=== PATIENT | female | born 1955 | race African-American/Black ===

== ENCOUNTER 2016-10-03 04:02 | Emergency (ER) | payer MEDICAID ==
[2016-10-03] MEDS ORDERED: LORAZEPAM INJ 2 MG/1 ML VIAL IV ONE ×2 (04:39→05:30)
[2016-10-03 05:04] LABS: ABSOLUTE EOSINOPHILS # (AUTO) 0.2 10^3/uL (0.0-0.6); ABSOLUTE LYMPHOCYTES (AUTO) 1.5 10^3/uL (0.5-4.7); ABSOLUTE MONOCYTES (AUTO) 0.4 10^3/uL (0.1-1.4); ABSOLUTE NEUT (AUTO) 2.7 10^3/uL (1.7-8.2); EOSINOPHILS % (AUTO) 3.8 % (0-6); HEMATOCRIT 40.2 % (36.0-47.0); HEMOGLOBIN 13.2 g/dL (12.0-15.5); HGB HCT DIFFERENCE -0.6; MEAN CORPUSCULAR HEMOGLOBIN 26.5 pg (27.0-33.4); MEAN CORPUSCULAR HGB CONC 32.9 g/dL (32.0-36.0); MEAN CORPUSCULAR VOLUME 81 fl (80-97); MONOCYTES % (AUTO) 8.8 % (3-13); RED BLOOD COUNT 4.99 10^6/uL (3.72-5.28); RED CELL DISTRIBUTION WIDTH 14.5 % (11.5-14.0); SEGMENTED NEUTROPHILS % (AUTO) 55.4 % (42-78); WHITE BLOOD COUNT 4.8 10^3/uL (4.0-10.5)
[2016-10-03] MEDS ORDERED: LEVETIRACETAM INJ/PF 500 MG/5 ML SDV IV ONE (05:06)
[2016-10-03 05:09] LABS: ALANINE AMINOTRANSFERASE 26 U/L (9-52); ALBUMIN 4.6 g/dL (3.5-5.0); ALKALINE PHOSPHATASE 82 U/L (38-126); ANION GAP 17 (5-19); ASPARTATE AMINO TRANSFERASE 24 U/L (14-36); BILIRUBIN,TOTAL 0.6 mg/dL (0.2-1.3); BLOOD UREA NITROGEN 25 mg/dL (7-20); CALCIUM 10.5 mg/dL (8.4-10.2); CARBON DIOXIDE 22 mmol/L (22-30); CHLORIDE 104 mmol/L (98-107); GLUCOSE 147 mg/dL (75-110); MAGNESIUM 2.1 mg/dL (1.6-2.3); POTASSIUM 3.9 mmol/L (3.6-5.0); SODIUM 142.7 mmol/L (137-145)
[2016-10-03 05:31] LABS: ALCOHOL < 10 mg/dL (NONE DETECTED)
--- NOTE | 2016-10-03 05:35 | ER Document Report ---
ED General - General Chief Complaint: Probable Seizure Stated Complaint: seizure activity Mode of Arrival: Medic Information source: Patient, Parent - HPI Notes: Patient presents by EMS with report of an observed seizure activity according to the family. The patient has a history of seizures which been controlled, but recently the patient stopped taking her Keppra as she was told by a nurse that it could cause psychosis. Patient does have a history of bipolar disease with schizophrenia according to the records. Family states this morning the patient was up walking around and then they heard her fall over and saw her with irregular breathing and then she started with snoring respirations and was unconscious. The patient slowly came around for EMS and arrived somewhat belligerent. Blood sugar was normal by report. On my questioning, the patient denies any pain anywhere. She reports no headache, neck pain, chest pain, shortness of breath. The family states prior to the event the patient was her normal self where she is argumentative at times and requires redirection by family members. - Related Data Allergies/Adverse Reactions: fluphenazine [Fluphenazine] Allergy (Severe, Verified 04/13/14 02:25) haloperidol [From Haldol] Allergy (Unknown, Verified 04/13/14 02:25) haloperidol lactate [From Haldol] Allergy (Unknown, Verified 04/13/14 02:25) lisinopril [Lisinopril] Allergy (Unknown, Verified 04/13/14 02:25) Past Medical History - Social History Smoking Status: Never Smoker Frequency of alcohol use: None Drug Abuse: None Lives with: Family Family History: Reviewed & Not Pertinent - Past Medical History Cardiac Medical History: Reports: Hx Hypercholesterolemia, Hx Hypertension Denies: Hx Heart Murmur Pulmonary Medical History: Reports: Hx Respiratory Failure Denies: Hx Tuberculosis Neurological Medical History: Reports: Hx Cerebrovascular Accident, Hx Seizures Psychiatric Medical History: Reports: Hx Depression, Hx Schizophrenia Past Surgical History: Reports: Hx Tubal Ligation - Immunizations Hx Diphtheria, Pertussis, Tetanus Vaccination: Yes Review of Systems - Review of Systems Notes: REVIEW OF SYSTEMS: CONSTITUTIONAL : Denies fever, chills, or sweats. Denies recent illness. EENT: Denies eye, ear, throat, or mouth pain or symptoms. Denies nasal or sinus congestion or discharge. Denies throat, tongue, or mouth swelling or difficulty swallowing. CARDIOVASCULAR: Denies chest pain. Denies palpitations or racing or irregular heart beat. Denies ankle edema. RESPIRATORY: Denies cough, cold, or chest congestion. Denies shortness of breath, difficulty breathing, or wheezing. GASTROINTESTINAL: Denies abdominal pain or distention. Denies nausea, vomiting , or diarrhea. Denies blood in vomitus, stools, or per rectum. Denies black, tarry stools. Denies constipation. GENITOURINARY: Denies difficulty urinating, painful urination, burning, frequency, blood in urine, or discharge. FEMALE GENITOURINARY: Denies vaginal bleeding, heavy or abnormal periods, irregular periods. Denies vaginal discharge or odor. MUSCULOSKELETAL: Denies back or neck pain or stiffness. Denies joint pain or swelling. SKIN: Denies rash, lesions or sores. HEMATOLOGIC : Denies easy bruising or bleeding. LYMPHATIC: Denies swollen, enlarged glands. NEUROLOGICAL: Denies dizziness or lightheadedness. Denies headache. Denies weakness or paralysis or loss of use of either side. Denies problems with gait or speech. Denies sensory loss, numbness, or tingling. PSYCHIATRIC: Denies anxiety or stress. Denies depression, suicidal ideation, or homicidal ideation. ALL OTHER SYSTEMS REVIEWED AND NEGATIVE. Dictation was performed using [employer] voice recognition software Physical Exam - Notes Notes: PHYSICAL EXAMINATION: GENERAL: Well-appearing, well-nourished and in no acute distress. HEAD: Atraumatic, normocephalic. EYES: Pupils equal round and reactive to light, extraocular movements intact, conjunctiva are normal. ENT: Nares patent, oropharynx without exudates. Moist mucous membranes. There is some bruising to the left side of the tongue consistent with the patient biting, but there are no significant lacerations. No dental trauma noted. NECK: Normal range of motion, supple without lymphadenopathy LUNGS: Breath sounds clear to auscultation bilaterally and equal. No wheezes rales or rhonchi. HEART: Regular rate and rhythm without murmurs ABDOMEN: Soft, nontender, nondistended abdomen. No guarding, no rebound. No masses appreciated. Female : deferred Musculoskeletal: Normal range of motion, no pitting or edema. No cyanosis. NEUROLOGICAL: Cranial nerves grossly intact. Normal speech. Normal sensory, motor exams. Patient is alert and oriented 3. Normal reflexes. PSYCH: Somewhat pressured speech and occasionally belligerent, but patient's family states this is her normal. Patient has no suicidal or homicidal ideation or obvious hallucinations. SKIN: Warm, Dry, normal turgor, no rashes or lesions noted. Course - Re-evaluation Re-evalutation: 10/03/16 05:35 Patient was given Ativan 1 mg IV, then was given a repeat dose of Ativan 1 mg IV. I discussed at length with the patient and her family the need to consistently take her Keppra on regular interval. I reaffirmed to the patient and likewise wrote out for the patient that the Keppra was not going to cause any psychosis or other psychotic symptoms. We will rule out acute CVA, electrolyte imbalance, infectious etiology or other abnormality or intracranial injury related to the fall. Currently patient is otherwise nontender on exam without evidence for any other trauma. However, the patient currently appears stable and if lab work is otherwise negative she will go home and resume her Keppra. 10/03/16 05:37 - Laboratory Result Diagrams: 10/03/16 04:13 10/03/16 04:13 Laboratory results interpreted by me: 10/03/16 10/03/16 10/03/16 04:13 04:13 04:20 MCH 26.5 L RDW 14.5 H BUN 25 H Creatinine 1.40 H Est GFR ( Amer) 46 L Est GFR (Non-Af Amer) 38 L Glucose 147 H POC Glucose 129 H Calcium 10.5 H Discharge - Discharge Clinical Impression: Seizure, Medical non-compliance Accidental fall Qualifiers: Encounter type: initial encounter Qualified Code(s): W19.XXXA - Unspecified fall, initial encounter Condition: Stable Disposition: HOME, SELF-CARE Instructions: Seizure, Known Epileptic ([facility]) Additional Instructions: Seizure, Known Epileptic You have had a seizure. Seizures may "break through" in an epileptic due to stress of infection or injury, a change in blood chemistry, or drug and alcohol use. Another common cause is failure to take medication as prescribed. Your doctor has evaluated your situation for the likely cause of this seizure. It is important that you follow his advice concerning any medication changes and follow-up care. Further testing of anti-seizure medication levels in your blood may be necessary. If you have a tanker driver's license, it's important that you DO NOT DRIVE until given permission by your physician. This seizure must be reported to the tanker driver 's license bureau. Call the doctor or return if seizures recur, or if new or unusual symptoms arise -- such as severe headache, confusion, excessive sleepiness, local weakness or numbness, neck stiffness, or fever. Take your Keppra regularly twice per day. Prescriptions: Levetiracetam [Keppra 500 mg Tablet] 500 mg PO Q12 #60 tablet
[2016-10-03 06:32] VITALS: BP 119/67
== END 2016-10-03 06:41 | disposition home or self-care (01) ==
LOC: ER 04:02
DX: G40.909 Epilepsy, unspecified, not intractable, without status epilepticus (principal); Z91.14 Patient's other noncompliance with medication regimen; W19.XXXA Unspecified fall, initial encounter; E78.00 Pure hypercholesterolemia, unspecified; I10 Essential (primary) hypertension; Z86.73 Personal history of transient ischemic attack (TIA), and cerebral infarction without residual deficits; Z98.51 Tubal ligation status
CPT/HCPCS: 96376; 99284; 96374; 96375; 36415; 82962; 80307; 83735; 85025; 80053; 70450; J2060; J1953

== ENCOUNTER → 2017-03-13 | Outpatient (CLI) | payer MEDICAID ==
--- NOTE | 2017-03-14 09:28 | WOMENS IMAGING REPORT ---
EXAM DESCRIPTION: BILAT SCREENING MAMMO W/CAD COMPLETED DATE/TIME: 03/13/2017 2:52 pm REASON FOR STUDY: ROUTINE SCREENING; Z12.31 Z12.31 ENCNTR SCREEN MAMMOGRAM FOR MALIGNANT NEOPLASM O F MERLYN COMPARISON: 05/18/2014, 07/16/2011 TECHNIQUE: Standard craniocaudal and mediolateral oblique views of each breast recorded using digita l acquisition. LIMITATIONS: None. FINDINGS: No masses, calcifications or architectural distortion. No areas of suspicion. Read with the assistance of CAD. .[facility] R2 Cenova Version 1.3 .[facility] - R2 Cenova Version 1.3 .[facility] - R2 Cenova Version 2.4 .[facility] - R2 Cenova Version 2.4 .[facility] - R2 Sharepoint Application Architect Version 9.2 IMPRESSION: NORMAL MAMMOGRAM. BIRADS 1. BREAST DENSITY: b. There are scattered areas of fibroglandular density. BIRAD: 1 NEGATIVE RECOMMENDATION: ROUTINE SCREENING Please continue yearly bilateral screening, consider bilateral screening tomosynthesis in February 2018 COMMENT: The patient has been notified of the results by letter per SA requirements. Additional no tification policies are in place for contacting patient with suspicious or incomplete findings. Quality ID #[id number]: The [employer] recommends an annual screening mammogram for women aged 40 years or over. This facility utilizes a reminder system to ensure that all patients receive reminder letters, and/or direct phone calls for appointments. This includes reminders for routine scr eening mammograms, diagnostic mammograms, or other Breast Imaging Interventions when appropriate. Th is patient will be placed in the appropriate reminder system. The [employer] (ACR) has developed recommendations for screening MRI of the breast s in certain patient populations, to be used in conjunction with mammography. Breast MRI surveillanc e may be appropriate for women with more than 20% lifetime risk of developing breast cancer as deter mined by genetic testing, significant family history of the disease, or history of mantle radiation f or Hodgkins Disease. ACR Practice Guidelines 2008. TECHNICAL DOCUMENTATION: FINDING NUMBER: (1) ASSESSMENT: (1) JOB ID: [id number] [employer]- All Rights Reserved
== END ==
LOC: WI 13:59
PROVIDERS: ATTEND Family Medicine
DX: Z12.31 Encounter for screening mammogram for malignant neoplasm of breast (principal)
CPT/HCPCS: 77067; G0202

== ENCOUNTER 2017-09-17 11:32 | Emergency (ER) | payer MEDICAID ==
[2017-09-17 11:41] VITALS: BP 140/89
--- NOTE | 2017-09-17 12:10 | RADIOLOGY REPORT (SQ) ---
EXAM DESCRIPTION: CT HEAD WITHOUT COMPLETED DATE/TIME: 09/17/2017 11:52 am REASON FOR STUDY: stroke alert COMPARISON: None. TECHNIQUE: Axial images acquired through the brain without intravenous contrast. Images reviewed wi th bone, brain and subdural windows. Images stored on PACS. All CT scanners at this facility use dose modulation, iterative reconstruction, and/or weight based d osing when appropriate to reduce radiation dose to as low as reasonably achievable (ALARA). [facility]: Dose Right [facility]: CareDose [facility]: Dose Right [facility]: Teradose 4D [facility]: Smart Technologies RADIATION DOSE: mGy. LIMITATIONS: None. FINDINGS: VENTRICLES: Prominent. CEREBRUM: No masses. No hemorrhage. No midline shift. Areas of low density in the white matter mos t likely due to chronic micro-vascular ischemic change. Old right occipital infarct is again identif ied. No evidence for acute infarction. CEREBELLUM: No masses. No hemorrhage. No evidence for acute infarction. EXTRAAXIAL SPACES: Mild age-related involutional change. No fluid collections. No masses. ORBITS AND GLOBE: No intra- or extraconal masses. Normal contour of globe without masses. CALVARIUM: No fracture. PARANASAL SINUSES: No fluid or mucosal thickening. SOFT TISSUES: No mass or hematoma. OTHER: No other significant finding. IMPRESSION: MILD CHRONIC CHANGES OF ATROPHY AND MICROVASCULAR ISCHEMIA. Old right occipital infarct . NO ACUTE PROCESS. EVIDENCE OF ACUTE STROKE: NO. COMMENT: Pertinent positive or negative findings of the imaging study reported as a CRITICAL EXAM t o ER PROVIDER Dr. Caceres at11:57 on 09/17/2017. Category of Critical Exam: Stroke alert TECHNICAL DOCUMENTATION: JOB ID: [id number] Quality ID # [id number]: Final reports with documentation of one or more dose reduction techniques (e.g., Au tomated exposure control, adjustment of the mA and/or kV according to patient size, use of iterative reconstruction technique) 2010 [employer]- All Rights Reserved Reading location - IP/workstation name: [email or web address]
[2017-09-17 12:14] LABS: ABSOLUTE BASOPHILS # (AUTO) 0.1 10^3/uL (0.0-0.2); ABSOLUTE EOSINOPHILS # (AUTO) 0.2 10^3/uL (0.0-0.6); ABSOLUTE LYMPHOCYTES (AUTO) 1.5 10^3/uL (0.5-4.7); ABSOLUTE MONOCYTES (AUTO) 0.4 10^3/uL (0.1-1.4); ABSOLUTE NEUT (AUTO) 3.6 10^3/uL (1.7-8.2); BASOPHILS % (AUTO) 1.4 % (0-2); HEMATOCRIT 39.2 % (36.0-47.0); HEMOGLOBIN 13.1 g/dL (12.0-15.5); LYMPHOCYTES % (AUTO) 26.5 % (13-45); MEAN CORPUSCULAR HEMOGLOBIN 27.1 pg (27.0-33.4); MEAN CORPUSCULAR HGB CONC 33.3 g/dL (32.0-36.0); MEAN CORPUSCULAR VOLUME 81 fl (80-97); MONOCYTES % (AUTO) 6.2 % (3-13); PLATELET COUNT 246 10^3/uL (150-450); RED BLOOD COUNT 4.83 10^6/uL (3.72-5.28); RED CELL DISTRIBUTION WIDTH 14.7 % (11.5-14.0); SEGMENTED NEUTROPHILS % (AUTO) 61.9 % (42-78); TOTAL CELLS COUNTED % (AUTO) 100 %; WHITE BLOOD COUNT 5.8 10^3/uL (4.0-10.5)
[2017-09-17 12:20] LABS: INTERNATIONAL RATION (INR) 0.82; PROTHROMBIN TIME 11.9 SEC (11.4-15.4)
[2017-09-17 12:21] LABS: PARTIAL THROMBOPLASTIN TIME 36.5 SEC (23.5-35.8)
--- NOTE | 2017-09-17 12:45 | RADIOLOGY REPORT (SQ) ---
EXAM DESCRIPTION: CHEST SINGLE VIEW COMPLETED DATE/TIME: 09/17/2017 12:35 pm REASON FOR STUDY: stroke alert COMPARISON: Chest films 01/24/2012, 12/09/2011 EXAM PARAMETERS: NUMBER OF VIEWS: One view. TECHNIQUE: Single frontal radiographic view of the chest acquired. RADIATION DOSE: NA LIMITATIONS: None. FINDINGS: LUNGS AND PLEURA: No opacities, masses or pneumothorax. No pleural effusion. MEDIASTINUM AND HILAR STRUCTURES: No masses. Contour normal. HEART AND VASCULAR STRUCTURES: Stable cardiomegaly BONES: No acute findings. HARDWARE: None in the chest. OTHER: No other significant finding. IMPRESSION: Stable cardiomegaly. No acute infiltrates TECHNICAL DOCUMENTATION: JOB ID: [id number] [employer]- All Rights Reserved Reading location - IP/workstation name: [email or web address]
--- NOTE | 2017-09-17 12:49 | EKG REPORT ---
SEVERITY:- NORMAL ECG - SINUS RHYTHM : Confirmed by: Jaron Guerrero MD 17-Sep-2017 12:48:42
--- NOTE | 2017-09-17 14:02 | ER Document Report ---
ED General - General Chief Complaint: S/S of Possible Stroke Stated Complaint: WEAKNESS Time Seen by Provider: 09/17/17 11:52 Notes: 62-year-old female to the emergency department chief complaint of numbness on both sides of her body. Had a history of stroke 14 years ago. Did not want that to happen again. States that she felt some chills and felt cold as well. EMS was called. Initially she refused transport but then called EMS back after they had already done a visit and decided to come to the emergency department. Currently she denies any numbness or weakness on any side of her body and wants to go home. Patient denies any symptoms at this time TRAVEL OUTSIDE OF THE [place] IN LAST 30 DAYS: No - HPI Onset: Just prior to arrival Onset/Duration: Gone Severity: None Pain Level: 0 - Related Data Allergies/Adverse Reactions: fluphenazine [Fluphenazine] Allergy (Severe, Verified 09/17/17 11:35) haloperidol [From Haldol] Allergy (Unknown, Verified 09/17/17 11:35) haloperidol lactate [From Haldol] Allergy (Unknown, Verified 09/17/17 11:35) lisinopril [Lisinopril] Allergy (Unknown, Verified 09/17/17 11:35) Past Medical History - General Information source: Patient, Relative - Social History Smoking Status: Never Smoker Cigarette use (# per day): No Chew tobacco use (# tins/day): No Smoking Education Provided: No Frequency of alcohol use: None Drug Abuse: None Lives with: Family Family History: Reviewed & Not Pertinent Patient has suicidal ideation: No Patient has homicidal ideation: No - Past Medical History Cardiac Medical History: Reports: Hx Hypercholesterolemia, Hx Hypertension Denies: Hx Heart Murmur Pulmonary Medical History: Reports: Hx Respiratory Failure Denies: Hx Tuberculosis Neurological Medical History: Reports: Hx Cerebrovascular Accident, Hx Seizures Renal/ Medical History: Denies: Hx Peritoneal Dialysis Psychiatric Medical History: Reports: Hx Depression, Hx Schizophrenia Past Surgical History: Reports: Hx Tubal Ligation - Immunizations Hx Diphtheria, Pertussis, Tetanus Vaccination: Yes Review of Systems - Review of Systems Constitutional: denies: Fever, Malaise, Weakness EENT: denies: Blurred vision, Double vision, Nose congestion, Nose discharge, Mouth pain, Mouth swelling Cardiovascular: denies: Chest pain, Palpitations, Heart racing, Orthopnea, Dyspnea Respiratory: denies: Cough, Hurts to breathe, Hemoptysis, Short of breath, Wheezing Gastrointestinal: denies: Abdominal pain, Diarrhea, Nausea, Vomiting Genitourinary: denies: Burning, Dysuria, Discharge, Frequency, Flank pain Musculoskeletal: denies: Back pain, Gout, Joint pain, Muscle pain Skin: denies: Change in color, Dryness, Lumps, Rash Hematologic/Lymphatic: denies: Anemia, Blood clots, Easy bleeding, Easy bruising Neurological/Psychological: Sensory change, Weakness, Numbness. denies: Confusion, Dementia, Depression, Anxiety Physical Exam - Vital signs Vitals: Temp Pulse Resp BP Pulse Ox 99.1 F 66 18 140/89 H 100 09/17/17 11:37 09/17/17 11:37 09/17/17 11:37 09/17/17 11:37 09/17/17 11:37 Interpretation: Normal - General General appearance: Appears well, Alert - HEENT Head: Normocephalic, Atraumatic Eyes: Normal Pupils: PERRL - Respiratory Respiratory status: No respiratory distress Chest status: Nontender Breath sounds: Normal Chest palpation: Normal - Cardiovascular Rhythm: Regular Heart sounds: Normal auscultation Murmur: No - Abdominal Inspection: Normal Distension: No distension Bowel sounds: Normal Tenderness: Nontender Organomegaly: No organomegaly - Back Back: Normal, Nontender - Extremities General upper extremity: Normal inspection, Nontender, Normal color, Normal ROM , Normal temperature General lower extremity: Normal inspection, Nontender, Normal color, Normal ROM , Normal temperature, Normal weight bearing. No: Joanna's sign - Neurological Neuro grossly intact: Yes Cognition: Normal Orientation: AAOx4 [place] Coma Scale Eye Opening: Spontaneous [place] Coma Scale Verbal: Oriented [place] Coma Scale Motor: Obeys Commands [place] Coma Scale Total: 15 Speech: Normal Motor strength normal: LUE, RUE, LLE, RLE Sensory: Normal - Psychological Associated symptoms: Normal affect, Normal mood - Skin Skin Temperature: Warm Skin Moisture: Dry Skin Color: Normal Course - Re-evaluation Re-evalutation: 09/17/17 14:08 Patient decided after being here in having her blood redrawn that she wanted to leave. States that she did not like the person that came in to talk with her that had braces on? Uncertain what to do. I tried to convince her to stay as she does have a significant risk of stroke with previous history of stroke and her symptoms were being described more as a TIA. Patient adamantly refused. A Mini-Mental status exam was performed. Patient time has the mental capacity to refuse further care. Patient's son was in the room and agreed with her decision as well. At this time I can do nothing further. Patient did sign a refusal of treatment and was discharged since medical advice - Vital Signs Vital signs: Temp Pulse Resp BP Pulse Ox 99.1 F 86 16 140/89 H 98 09/17/17 11:37 09/17/17 12:04 09/17/17 12:04 09/17/17 12:04 09/17/17 12:04 - Laboratory Result Diagrams: 09/17/17 11:56 09/17/17 11:56 Laboratory results interpreted by me: 09/17/17 09/17/17 11:56 11:56 RDW 14.7 H APTT 36.5 H Discharge - Discharge Clinical Impression: Paresthesias Condition: Good Disposition: HOME, SELF-CARE Referrals: GUSTAVO STOLL MD [Primary Care Provider] - Follow up as needed
[2017-09-17 14:14] LABS: APPEARANCE,URINE SLIGHTLY-CLOUDY; BILIRUBIN,URINE NEGATIVE (NEGATIVE); COLOR,URINE YELLOW; GLUCOSE, URINE NEGATIVE (NEGATIVE); KETONES,URINE NEGATIVE (NEGATIVE); LEUKOCYTE ESTERASE,URINE TRACE (NEGATIVE); NITRITE,URINE NEGATIVE (NEGATIVE); PROTEIN,URINE NEGATIVE (NEGATIVE); UROBILINOGEN,URINE NEGATIVE mg/dL (<2.0)
[2017-09-17 14:16] LABS: ALANINE AMINOTRANSFERASE 22 U/L (9-52); ALBUMIN 4.4 g/dL (3.5-5.0); ALKALINE PHOSPHATASE 75 U/L (38-126); ANION GAP 15 (5-19); ASPARTATE AMINO TRANSFERASE 22 U/L (14-36); BILIRUBIN,DIRECT 0.2 mg/dL (0.0-0.4); BILIRUBIN,TOTAL 0.5 mg/dL (0.2-1.3); BLOOD UREA NITROGEN 18 mg/dL (7-20); CALCIUM 10.1 mg/dL (8.4-10.2); CARBON DIOXIDE 24 mmol/L (22-30); CHLORIDE 106 mmol/L (98-107); GLUCOSE 116 mg/dL (75-110); POTASSIUM 3.2 mmol/L (3.6-5.0)
== END 2017-09-17 14:06 | disposition left against medical advice (07) ==
LOC: ER 11:32
DX: R20.0 Anesthesia of skin (principal); R53.1 Weakness; Z86.73 Personal history of transient ischemic attack (TIA), and cerebral infarction without residual deficits
CPT/HCPCS: 36415; 70450; 71045; 80053; 81001; 84484; 85025; 85610; 85730; 93005; 93010; 99285

== ENCOUNTER 2017-11-04 04:39 | Emergency (ER) | payer MEDICAID ==
[2017-11-04 05:00] VITALS: BP 159/85
--- NOTE | 2017-11-04 05:03 | ER Document Report ---
ED General - General Stated Complaint: NOT FEELING WELL Notes: Patient is a 62-year-old female is brought in by EMS because she had a seizure. Patient is on Keppra for seizures. Patient's family members at bedside and said that she forgot to take her nighttime seizure medication before going to bed. Seizure was witnessed by another family member. The family member in room says he is not exactly sure how long it lasted but she was postictal afterwards. She initially refused to come to the ER but then eventually agreed. Upon arrival patient at this room is yelling at staff and yelling at the paramedics. She is yelling "everybody here is rude". She also is yelling and say how much she does not like this emergency department. I immediately tried to calm the patient and asked her to quit yelling. Patient informed me that she is not yelling this how she talks. I informed her that it is hard difficult to tell because she was saying mean things to the nursing staff as well as to the paramedics as soon as she is brought into the room. I informed her that that would not be tolerated. Patient's then agreed to cooperate. She denies any pain from the seizures. She denies any injury. She does admit to missing her medication. Her only medical allergies to lisinopril. I did review the patient's last 2 visits. She was here once for seizure also due to not taking her Keppra. Another time she was here due to possible TIA. Last time she was here she eloped because she said she did not like the person who came into her room. It appears that she does have a history of schizophrenia bipolar according to records and she typically is difficult to make happy when she is here. TRAVEL OUTSIDE OF THE [place] IN LAST 30 DAYS: No - Related Data Allergies/Adverse Reactions: fluphenazine [Fluphenazine] Allergy (Severe, Verified 09/17/17 11:35) haloperidol [From Haldol] Allergy (Unknown, Verified 09/17/17 11:35) haloperidol lactate [From Haldol] Allergy (Unknown, Verified 09/17/17 11:35) lisinopril [Lisinopril] Allergy (Unknown, Verified 09/17/17 11:35) Past Medical History - Social History Smoking Status: Never Smoker Frequency of alcohol use: None Drug Abuse: None Family History: Reviewed & Not Pertinent - Past Medical History Cardiac Medical History: Reports: Hx Hypercholesterolemia, Hx Hypertension Denies: Hx Heart Murmur Pulmonary Medical History: Reports: Hx Respiratory Failure Denies: Hx Tuberculosis Neurological Medical History: Reports: Hx Cerebrovascular Accident, Hx Seizures Renal/ Medical History: Denies: Hx Peritoneal Dialysis Psychiatric Medical History: Reports: Hx Depression, Hx Schizophrenia Past Surgical History: Reports: Hx Tubal Ligation - Immunizations Hx Diphtheria, Pertussis, Tetanus Vaccination: Yes Review of Systems - Review of Systems Notes: My Normal Review Basic REVIEW OF SYSTEMS: CONSTITUTIONAL : Denies fever, chills, or sweats. Denies recent illness. EENT: Denies eye, ear, throat, or mouth pain or symptoms. Denies nasal or sinus congestion. RESPIRATORY: Denies cough, cold, or chest congestion. Denies shortness of breath, difficulty breathing, or wheezing. GASTROINTESTINAL: Denies abdominal pain. Denies nausea, vomiting, or diarrhea. Denies constipation. Last BM: MUSCULOSKELETAL: Denies neck or back pain or joint pain or swelling. SKIN: Denies rash or skin lesions. NEUROLOGICAL: Patient had seizure. Denies headache. Denies weakness or paralysis or loss of use of either side. Denies problems with gait or speech. Denies sensory or motor loss.. ALL OTHER SYSTEMS REVIEWED AND NEGATIVE. Physical Exam - Vital signs Vitals: Temp Pulse Resp BP Pulse Ox 98.1 F 71 20 159/85 H 100 11/04/17 04:58 11/04/17 04:58 11/04/17 04:58 11/04/17 04:58 11/04/17 04:58 - Notes Notes: General Appearance: Well nourished, alert, no acute distress, no obvious discomfort. Vitals: reviewed, See vital signs table. Head: no swelling or tenderness to the head Eyes: PERRL, EOMI, Conjuctiva clear Mouth: No decreasd moisture Throat: No tonsillar inflammation, No airway obstruction, No lymphadenopathy Neck: Supple, no neck tenderness, No thyromegaly Lungs: No wheezing, No rales, No rhonci, No accessory muscle use, good air exchange bilaterally. Heart: Normal rate, Regular rythm, No murmur, no rub Abdomen: Normal BS, soft, No rigidity, No abdominal tenderness, No guarding, no rebound, no abdominal masses, no organomegaly Extremities: strength 5/5 in all extremities, good pulses in all extremities, no swelling or tenderness in the extremities, no edema. Skin: warm, dry, appropriate color, no rash Neuro: speech clear, oriented x 3, normal affect, responds appropriately to questions. Cranial nerves II through XII are intact. Distal sensation intact. Patient moves all extremities without difficulty. Course - Re-evaluation Re-evalutation: 11/04/17 05:51 Patient's electrolytes and CBC are all normal. She looks well. I suspect a seizure probably occurred she did not take her seizure medications. She is received recent seizure medications. She looks well. Feel she is safe to be discharged home. She has no further concerns at this time. Encouraged her return to ER if she has recurrent seizures or feels unwell. Patient and family member agree with the plan and she will be discharged home. Dictation of this chart was performed using voice recognition software; therefore, there may be some unintended grammatical errors. - Vital Signs Vital signs: Temp Pulse Resp BP Pulse Ox 98.1 F 71 20 159/85 H 100 11/04/17 04:58 11/04/17 04:58 11/04/17 04:58 11/04/17 04:58 11/04/17 04:58 - Laboratory Result Diagrams: 11/04/17 05:00 11/04/17 05:00 Laboratory results interpreted by me: 11/04/17 11/04/17 05:00 05:00 MCH 26.9 L RDW 14.9 H Band Neutrophils % 1 L Est GFR (Non-Af Amer) 50 L Glucose 112 H Discharge - Discharge Clinical Impression: Seizure Condition: Good Disposition: HOME, SELF-CARE Additional Instructions: Pelase take your seizure medications as prescribed. Please return to the ER if you have recurrent seizures, fevers, or feel unwell. Referrals: GUSTAVO STOLL MD [Primary Care Provider] - Follow up as needed
[2017-11-04 05:16] LABS: HEMATOCRIT 39.4 % (36.0-47.0); MEAN CORPUSCULAR HEMOGLOBIN 26.9 pg (27.0-33.4); MEAN CORPUSCULAR VOLUME 81 fl (80-97); PLATELET COUNT 232 10^3/uL (150-450); RED BLOOD COUNT 4.84 10^6/uL (3.72-5.28); RED CELL DISTRIBUTION WIDTH 14.9 % (11.5-14.0); WHITE BLOOD COUNT 4.7 10^3/uL (4.0-10.5)
[2017-11-04 05:22] LABS: ANION GAP 12 (5-19); BLOOD UREA NITROGEN 13 mg/dL (7-20); CALCIUM 10.2 mg/dL (8.4-10.2); CARBON DIOXIDE 30 mmol/L (22-30); CHLORIDE 103 mmol/L (98-107); GLUCOSE 112 mg/dL (75-110); POTASSIUM 4.1 mmol/L (3.6-5.0); SODIUM 144.8 mmol/L (137-145)
[2017-11-04 05:36] LABS: ABSOLUTE LYMPHOCYTES# (MANUAL) 0.9 10^3/uL (0.5-4.7); ABSOLUTE MONOCYTES # (MANUAL) 0.4 10^3/uL (0.1-1.4); ABSOLUTE NEUTROPHILS# (MANUAL) 3.1 10^3/uL (1.7-8.2); BAND NEUTROPHILS % (MANUAL) 1 % (3-5); BASOPHILS % (MANUAL) 2 % (0-2); EOSINOPHILS % (MANUAL) 3 % (0-6); LYMPHOCYTES % (MANUAL) 20 % (13-45); MONOCYTES % (MANUAL) 9 % (3-13); SEGMENTED NEUTROPHILS % (MAN) 65 % (42-78); TOTAL CELLS COUNTED 100
[2017-11-04 05:38] LABS: ANISOCYTOSIS SLIGHT; PLATELET COMMENT ADEQUATE
== END 2017-11-04 06:00 | disposition home or self-care (01) ==
LOC: ER 04:39
DX: R56.9 Unspecified convulsions (principal); Z79.899 Other long term (current) drug therapy
CPT/HCPCS: 36415; 80048; 83735; 85025; 99284

== ENCOUNTER 2017-11-07 09:03 | Emergency (ER) | payer MEDICAID ==
--- NOTE | 2017-11-07 09:12 | ER Document Report ---
ED General - General Stated Complaint: WEAKNESS Time Seen by Provider: 11/07/17 09:09 TRAVEL OUTSIDE OF THE [place] IN LAST 30 DAYS: No - HPI Patient complains to provider of: Weakness Notes: Patient coming in the EMS initially for weakness. Upon EMS arrival states the patient became combative refusing initially transport and agreed to come to the hospital. Upon arrival here to the hospital patient is very demanding stating that she needed to go to the bathroom and quickly was decreased by EMS and the patient's room waiting for her to return to the bathroom. Son is at bedside. Upon entering room #18 and introduced myself smiling explained now with Dr. Medeiros patient looks to me states "do not smile at me I do not want you to smile i want you to be a doctor and not smile." Patient seems to be very irate however upon further questioning patient states she came in today because she had a fall weakness on the left side. Patient states she does still feel weak. Patient also states that she does not want to be here in the hospital as a [facility] does not provide her with any services. Patient is concerned that she is allergic to her Keppra medication patient states that she stopped this medication and since starting the medication patient feels better. Otherwise patient's HPI is very limited as patient is very agitated - Related Data Allergies/Adverse Reactions: fluphenazine [Fluphenazine] Allergy (Severe, Verified 09/17/17 11:35) haloperidol [From Haldol] Allergy (Unknown, Verified 09/17/17 11:35) haloperidol lactate [From Haldol] Allergy (Unknown, Verified 09/17/17 11:35) lisinopril [Lisinopril] Allergy (Unknown, Verified 09/17/17 11:35) Past Medical History - Social History Smoking Status: Unknown if Ever Smoked Family History: Reviewed & Not Pertinent - Past Medical History Cardiac Medical History: Reports: Hx Hypercholesterolemia, Hx Hypertension Denies: Hx Heart Murmur Pulmonary Medical History: Reports: Hx Respiratory Failure Denies: Hx Tuberculosis Neurological Medical History: Reports: Hx Cerebrovascular Accident, Hx Seizures Renal/ Medical History: Denies: Hx Peritoneal Dialysis Psychiatric Medical History: Reports: Hx Depression, Hx Schizophrenia Past Surgical History: Reports: Hx Tubal Ligation - Immunizations Hx Diphtheria, Pertussis, Tetanus Vaccination: Yes Review of Systems - Review of Systems Constitutional: Weakness - Agitation EENT: No symptoms reported Cardiovascular: No symptoms reported Respiratory: No symptoms reported Gastrointestinal: No symptoms reported Genitourinary: No symptoms reported Female Genitourinary: No symptoms reported Musculoskeletal: No symptoms reported Skin: No symptoms reported Hematologic/Lymphatic: No symptoms reported Neurological/Psychological: No symptoms reported Physical Exam - Vital signs Interpretation: Normal - General General appearance: Appears well - Agitated, Alert - HEENT Head: Normocephalic, Atraumatic - Respiratory Respiratory status: No respiratory distress - Cardiovascular Murmur: No - Extremities General upper extremity: Normal inspection, Normal ROM General lower extremity: Normal inspection, Normal ROM, Normal weight bearing - Neurological Neuro grossly intact: Yes Cognition: Normal Orientation: AAOx4 Buckhorn Coma Scale Eye Opening: Spontaneous Buckhorn Coma Scale Verbal: Oriented Kojo Coma Scale Motor: Obeys Commands Buckhorn Coma Scale Total: 15 Speech: Normal Motor strength normal: LUE, RUE, LLE, RLE Sensory: Normal - Psychological Associated symptoms: Normal affect, Agitated, Angry - Skin Skin Temperature: Warm Skin Moisture: Dry Skin Color: Normal Course - Re-evaluation Re-evalutation: 11/07/17 14:47 Patient coming in very agitated for the complaint of weakness and concerned that she is allergic to a possible medication. The son is at bedside. Patient states that she wants to leave although she came in by EMS. Patient states that she would like to go to another hospital. Patient states that [facility] does not do anything for her. Patient is alert and oriented 3. Although she is agitated and possibly slightly manic she is not causing any harm to anybody else and does not seem to be causing her harm to herself. EMS states that the patient denied any SI or HI upon their arrival. Son is at bedside and agrees to take responsibility patient agrees that he will watch the patient and that we can discharge her. Patient left prior to receiving discharge papers 11/07/17 14:48 Patient able to ambulate from bathroom to her room without difficulty no signs of unilateral weakness. Patient walking with a steady gait. Patient seems to be 3 able to make her own medical decisions. 11/07/17 14:49 Medical screening exam performed no signs of emergency at this time Discharge - Discharge Clinical Impression: Weakness Hypertension Qualifiers: Hypertension type: essential hypertension Qualified Code(s): I10 - Essential ( primary) hypertension Condition: Fair Disposition: HOME, SELF-CARE Instructions: Weakness (OM) Additional Instructions: You stated that you do not want any further care performed here at [facility]. Highly recommend she follow-up with your primary care physician for further evaluation of your medications and of your other conditions. Your free to return to the ER at any time to have a complete examination. Please be aware that your examination today was incomplete as that we did not perform a thorough physical examination. At this time the vital signs do show hypertension you are agitated however we are moving all 4 extremities knees with no signs of weakness no signs of acute emergent needs. Referrals: GUSTAVO STOLL MD [Primary Care Provider] - Follow up as needed
== END 2017-11-07 09:14 | disposition home or self-care (01) ==
LOC: ER 09:03
DX: R53.1 Weakness (principal); I10 Essential (primary) hypertension; E78.00 Pure hypercholesterolemia, unspecified; Z98.51 Tubal ligation status
CPT/HCPCS: 99284

== ENCOUNTER 2017-11-10 11:29 | Inpatient (IN) | payer MEDICAID ==
--- NOTE | 2017-11-10 11:56 | RADIOLOGY REPORT (SQ) ---
EXAM DESCRIPTION: CT HEAD WITHOUT COMPLETED DATE/TIME: 11/10/2017 11:41 am REASON FOR STUDY: weakness COMPARISON: 09/17/2017 TECHNIQUE: Axial images acquired through the brain without intravenous contrast. Images reviewed wi th bone, brain and subdural windows. Additional sagittal and coronal reconstructions were generated. Images stored on PACS. All CT scanners at this facility use dose modulation, iterative reconstruction, and/or weight based d osing when appropriate to reduce radiation dose to as low as reasonably achievable (ALARA). [facility]: Dose Right [facility]: CareDose [facility]: Dose Right [facility]: Teradose 4D [facility]: Slyce RADIATION DOSE: mGy. LIMITATIONS: None. FINDINGS: VENTRICLES: Prominent. CEREBRUM: No masses. No hemorrhage. No midline shift. Old right occipital infarct. Areas of low d ensity in the white matter most likely due to chronic micro-vascular ischemic change. No evidence fo r acute infarction. CEREBELLUM: No masses. No hemorrhage. No alteration of density. No evidence for acute infarction. EXTRAAXIAL SPACES: Age-related involutional change. No fluid collections. No masses. ORBITS AND GLOBE: No intra- or extraconal masses. Normal contour of globe without masses. CALVARIUM: No fracture. PARANASAL SINUSES: No fluid or mucosal thickening. SOFT TISSUES: No mass or hematoma. OTHER: No other significant finding. IMPRESSION: Chronic ischemic changes. EVIDENCE OF ACUTE STROKE: NO. COMMENT: Pertinent positive or negative findings of the imaging study reported as a CRITICAL EXAM t pippa Jimenez At11:49 on 11/10/2017. Category of Critical Exam: Stroke alert. TECHNICAL DOCUMENTATION: JOB ID: [id number] Quality ID # [id number]: Final reports with documentation of one or more dose reduction techniques (e.g., Au tomated exposure control, adjustment of the mA and/or kV according to patient size, use of iterative reconstruction technique) 2010 [employer]- All Rights Reserved Reading location - IP/workstation name: [email or web address]
--- NOTE | 2017-11-10 12:03 | RADIOLOGY REPORT (SQ) ---
EXAM DESCRIPTION: CHEST SINGLE VIEW COMPLETED DATE/TIME: 11/10/2017 11:40 am REASON FOR STUDY: weakness/STROKE ALERT COMPARISON: 09/17/2017 EXAM PARAMETERS: NUMBER OF VIEWS: One view. TECHNIQUE: Single frontal radiographic view of the chest acquired. RADIATION DOSE: NA LIMITATIONS: None. FINDINGS: LUNGS AND PLEURA: No opacities, masses or pneumothorax. No pleural effusion. MEDIASTINUM AND HILAR STRUCTURES: No masses. Contour normal. HEART AND VASCULAR STRUCTURES: Heart normal in size. Normal vasculature. BONES: No acute findings. HARDWARE: None in the chest. OTHER: No other significant finding. IMPRESSION: NO ACUTE RADIOGRAPHIC FINDING IN THE CHEST. TECHNICAL DOCUMENTATION: JOB ID: [id number] [email or web address]- All Rights Reserved Reading location - IP/workstation name: [email or web address]
[2017-11-10] MEDS ORDERED: ASPIRIN 81 MG TABLET, CHEWABLE PO ONE (14:26)
--- NOTE | 2017-11-10 14:28 | ER Document Report ---
ED Neuro Symptoms/Deficit - General Chief Complaint: Weakness Stated Complaint: PSYCH Time Seen by Provider: 11/10/17 14:10 Notes: The patient is a 62-year-old female, past medical history prior CVA without any residual deficits, presents with 2 days of left arm and leg weakness and decreased sensation. She is now having difficulty walking to the bathroom. Patient denies any blood thinner use, head injury, chest pain, shortness of breath, urinary symptoms, difficulty swallowing or ataxia. TRAVEL OUTSIDE OF THE [place] IN LAST 30 DAYS: No - Related Data Allergies/Adverse Reactions: fluphenazine [Fluphenazine] Allergy (Severe, Verified 09/17/17 11:35) haloperidol [From Haldol] Allergy (Unknown, Verified 09/17/17 11:35) haloperidol lactate [From Haldol] Allergy (Unknown, Verified 09/17/17 11:35) lisinopril [Lisinopril] Allergy (Unknown, Verified 11/10/17 11:55) Past Medical History - General Information source: Patient - Social History Smoking Status: Unknown if Ever Smoked Family History: Reviewed & Not Pertinent Patient has suicidal ideation: No Patient has homicidal ideation: No - Past Medical History Cardiac Medical History: Reports: Hx Hypercholesterolemia, Hx Hypertension Denies: Hx Heart Murmur Pulmonary Medical History: Reports: Hx Respiratory Failure Denies: Hx Tuberculosis Neurological Medical History: Reports: Hx Cerebrovascular Accident, Hx Seizures Renal/ Medical History: Denies: Hx Peritoneal Dialysis Psychiatric Medical History: Reports: Hx Depression, Hx Schizophrenia Past Surgical History: Reports: Hx Tubal Ligation - Immunizations Hx Diphtheria, Pertussis, Tetanus Vaccination: Yes Review of Systems - Review of Systems Notes: REVIEW OF SYSTEMS: CONSTITUTIONAL: -fevers, -chills EENT: -eye pain, -difficulty swallowing, -nasal congestion CARDIOVASCULAR: -chest pain, -syncope. RESPIRATORY: -cough, -SOB GASTROINTESTINAL: -abdominal pain, -nausea, -vomiting, -diarrhea GENITOURINARY: -dysuria, -hematuria MUSCULOSKELETAL: -back pain, -neck pain SKIN: -rash or skin lesions. HEMATOLOGIC: -easy bruising or bleeding. LYMPHATIC: -swollen, enlarged glands. NEUROLOGICAL: -altered mental status or loss of consciousness, -headache, +left arm and leg weakness and decreased sensation PSYCHIATRIC: -anxiety, -depression. ALL OTHER SYSTEMS REVIEWED AND NEGATIVE. Physical Exam - Vital signs Vitals: Temp Pulse Resp BP Pulse Ox 98.2 F 62 18 144/77 H 96 11/10/17 11:50 11/10/17 11:50 11/10/17 11:50 11/10/17 11:50 11/10/17 11:50 - Notes Notes: PHYSICAL EXAMINATION: GENERAL: Well-appearing, well-nourished and in no acute distress. HEAD: Atraumatic, normocephalic. EYES: Pupils equal round and reactive to light, extraocular movements intact, sclera anicteric, conjunctiva are normal. ENT: nares patent, oropharynx clear without exudates. Moist mucous membranes. NECK: Normal range of motion, supple without lymphadenopathy LUNGS: Breath sounds clear to auscultation bilaterally and equal. No wheezes rales or rhonchi. HEART: Regular rate and rhythm without murmurs ABDOMEN: Soft, nontender, normoactive bowel sounds. No guarding, no rebound. No masses appreciated. EXTREMITIES: Normal range of motion, no pitting or edema. No cyanosis. NEUROLOGICAL: Cranial nerves grossly intact. Normal speech. 3/5 strength in LUE and LLE. 5/5 strength in RUE and RLE. Decreased sensation in LUE and LLE. PSYCH: Normal mood, normal affect. SKIN: Warm, Dry, normal turgor, no rashes or lesions noted. Course - Re-evaluation Re-evalutation: Patient with 2 days of left arm and leg weakness and numbness. She is not a TPA candidate due to [address] head does not show any acute findings, but does show evidence of old infarcts. Her NIH stroke scale is 5 and her ABCD2 score is 5. She requires admission due to decreased ambulation and further evaluation and treatment of her CVA symptoms. 11/10/17 15:15 Nurse and tech said that patient hopped off the stretcher and walked to CAT scan without any focal weakness. She then grabbed her purse very quickly with her left arm. Will obtain a MRI due to inconsistent physical exam findings. If the MRI is normal, she may be discharged home with her follow-up at primary care physician. 11/10/17 17:58 MRI is consistent with an acute right MCA stroke, which is consistent with her physical exam findings on my exam. She is not a TPA candidate due to 2 days of symptoms. She requires admission to the stroke unit for further evaluation and treatment. Spoke to Dr. Vigil and will admit patient to [facility]. - Vital Signs Vital signs: Temp Pulse Resp BP Pulse Ox 98.2 F 62 18 144/77 H 96 11/10/17 11:50 11/10/17 11:50 11/10/17 11:50 11/10/17 11:50 11/10/17 11:50 - Laboratory Result Diagrams: 11/10/17 11:48 11/10/17 11:48 - Diagnostic Test Radiology reviewed: Image reviewed, Reports reviewed Radiology results interpreted by me: CT Head: Chronic changes, no acute findings. CXR: NAD MRI Head: acute right MCA stroke - EKG Interpretation by Me EKG shows normal: Sinus rhythm, [place], Intervals, QRS Complexes, ST-T Waves Rate: Normal When compared to previous EKG there are: No significant change Critical Care Note - Critical Care Note Total time excluding time spent on procedures (mins): 35 ED [employer]/Exc Criteria - Date/Time patient last known well: Date/Time: 11/08/2017 - Date/Time patient arrived in ED: _: 11/10/2017 12:00 - Inclusion Criteria: 1: Patient presented to ED within 3 hours of acute ischemic stroke symptom onset ? -: No 2: Did baseline CT exclude intracranial hemorrhage and/or other risk factors? -: Yes 3: Is the age of the patient 18 years of age or greater? -: Yes : If any of the above questions are answered "NO" then stop, patient is not a candidate for Alteplase, : If all of the above questions are answered "YES" then continue with Exclusion Criteria. - Exclusion Criteria: 1: Is there evidence of intracranial hemorrhage on baseline CT? 2: Is there suspicion of subarachnoid hemorrhage (even if CT negative)? 3: Is there a history of serious head trauma, recent previous stroke or VA within 3 months? 4: Does the patient have a clinical presentation consistent with VA or post-VA pericarditis? 5: Is there history of intracranial hemorrhage? 6: On repeated measurement is Systolic BP greater than 185mmHg or Diastolic BP greater that 110 mmHg and is aggressive treatment needed to reduce blood pressure to these limits (e.g. constant infusion of an anti-hypertensive)? 7: Did the patient awake with stroke symptoms? 8: Has the patient had a lumbar puncture or an arterial puncture at a non- compressile site within 7 days? 9: With in the last 14 days did the patient have surgery or major trauma? 10: Is the patient or less than 2 weeks? 11: Was there any active bleeding or acute trauma? 12: Does the patient have intracranial neoplasm, arteriovenous malformation or aneurysm? 13: Does the patient have abnormal glucose (less than 50 or greater than 400mg/ dl)? Record glucose in Comment. 14: Patient has rapidly improving symptoms at the time Alteplase is to be Administered. 15: Does the patient have any risks for bleeding, including but not limited to: a.: Current use of Coumadin with PT greater than 15 seconds or INR greater than 1.7. b.: Current use of Pradaxa (Dabigatran). c.: Heparin administereed within the past 48 hours and PTT elevated. d.: Platelet count less than 100,000/mm. e.: Major surgery or serious trauma within 14 days. f.: Gastrointestinal or gynecological urinary bleeding within 14 days. g.: Myocardial Infarction (VA) within 3 months. : If the answer to any of the above questions is "YES" then stop, the patient is not a candidate for Alteplase. : If the answer to all of the above questions is "NO" then the patient may be eligible for the Administration of Alteplase. : If the patient is noted to have seizure activity at onset of Stroke symptoms; Consult Neurologist for further evaluation. - The patient is: -: Included and is eligible to receive Alteplase. *Initiate bed placement at higher level of care* --: No Reviewd risks & benefits of thrombolytic therapy: I have reviewed the risks and benefits of thrombolytic therapy with the patient and/or his/her family. Yes -: Excluded and not eligible to receive Alteplase for the above exclusions. --: Yes -: Excluded and not eligible to receive Alteplase for other reasons (specify in comments): - Diagnosis of TIA: -: Patient presented with transient symptoms that are now resolved and no other neurologic findings are currently present. List symptoms in comments. -: Patient is NOT a candidate for tPA. -: ____(put name in comment) has been consulted for admission and continued evaluation of risk factor assessment. ED NIH Stroke Scale - NIH Stroke Scale When completed:: Before Alteplase *: 1. NIH scale should be completed with appropriate accompanying assessment tools. *: 2. The NIH should reflect what the patient is capable of doing and should not be coached by the clinician. 1a. Level of Consciousness: 0=Alert;keenly responsive -: 1=Drowsy -: 2=Obtunded -: 3=Coma/unresponsive or reflex to noxious stimuli. 1a. Responses: 0 1b. Orientation Questions: a. What month is it? -: b. How old are you? -: 0=Answers both questions correctly. -: 1=Answers one question correctly or patient is intubated or has orotracheal trauma. -: 2=Answers neither question correctly. 1b. Responses: 0 1c. Response to commands: a. Open and close eyes? -: b. Tiller Man and release hand? -: Credit is given despite weakness. Demonstration of task is permitted. Substitute command if hands cannot be used. -: 0=Performs both tasks correctly -: 1=Performs one task correctly -: 2=Performs neither task correctly 1c. Responses: 0 2. Gaze: Establish eye contact and instruct patient to "Follow my finger" -: 0=Normal -: 1=Partial gaze palsy. Gaze is abnormal in one or both eyes, but where forced deviation or total gaze paresis is not present. -: 2=Forced deviation or total gaze paresis. 2. Responses: 0 3. Visual Myers: Sees fingers in all four quadrants. -: 0=No visual loss. -: 1=Partial hemianopsia. -: 2=Complete hemianopsia. -: 3=Bilateral hemianopsia (including Cortical blindness) 3. Responses: 0 4. Facial Movement: Instruct patient to: -: a. Show me your teeth -: b. Raise your eyebrows -: c. Close your eyes -: d. Smile -: 0=Normal symmetrical movement -: 1=Minor paralysis (flattened nasolabial fold, asymmetry on smiling). -: 2=Partial paralysis (total or near total paralysis of lower face). -: 3=Complete paralysis of upper and lower face 4. Responses: 0 5. Motor functions (left arm): Alternate sides and extend each arm with palms down (90 degrees if sitting or 45 degrees for supine). -: 0=No drift;limb holds for full 10 seconds. -: 1=Drift; limb holds but drifts down before full 10 seconds, but does not hit bed. -: 2=Some effort against gravity; limb cannot get to or maintain position. -: 3=No effort against gravity; limb falls. -: 4=No movement. -: UN=Amputation, joint fusion, explain in comments. 5. Responses (left arm): 2 5. Motor Functions (right arm): Alternate sides and extend each arm with palms down (90 degrees if sitting or 45 degrees for supine). -: 0=No drift;limb holds for full 10 seconds. -: 1=Drift; limb holds but drifts down before full 10 seconds, but does not hit bed. -: 2=Some effort against gravity; limb cannot get to or maintain position. -: 3=No effort against gravity; limb falls. -: 4=No movement. -: UN=Amputation, joint fusion, explain in comments. 5. Responses (right arm): 0 6. Motor Functions (left leg): With patient lying supine, alternate sides and extend each leg (30 degrees always while supine). -: 0=No drift, leg holds position for full 5 seconds -: 1=Drift; leg falls before full 5 seconds but does not hit bed. -: 2=Some effort against gravity, leg falls to bed but some effort against gravity. -: 3=No effort against gravity, leg falls to bed immediately. -: 4=No movement. -: UN=Amputation, joint fusion; explain in comments. 6. Responses (left leg): 2 6. Motor Functions (right leg): With patient lying supine, alternate sides and extend each leg (30 degrees always while supine). -: 0=No drift, leg holds position for full 5 seconds -: 1=Drift; leg falls before full 5 seconds but does not hit bed. -: 2=Some effort against gravity, leg falls to bed but some effort against gravity. -: 3=No effort against gravity, leg falls to bed immediately. -: 4=No movement. -: UN=Amputation, joint fusion; explain in comments. 6. Responses (right leg): 0 7. Limb Ataxia: With eyes open instruct patient to: -: a. "Touch your finger to your nose". -: b. "Touch your heel to your jha" -: 0=Absent -: 1=Present in one limb. -: 2=Present in two limbs. -: UN=Amputation or joint fusion; explain in comments. 7. Responses: 0 8. Sensory: Test sensation using pinprick or noxious stimuli. Test as many body parts as possible. -: 0=Normal;no sensory loss -: 1=Mile to moderate sensory loss (patient feels pin prick but is less sharp on affected side). -: 2=Severe or total sensory loss. 8. Responses: 1 9. Best Language: Instruct patient to: -: a. "Describe what you see in this picture." -: b. "Name the items in this picture." -: c. "Read these sentences." -: 0=No aphasia, normal -: 1=Mild to moderate aphasia. -: 2=Severe aphasia -: 3=Mute, global aphasia, no usable speech or auditory comprehension. 9. Responses: 0 10. Articulation, Dysarthia: Instruct patient to: -: "Read these words" or "Repeat these words" -: 0=Normal -: 1=Mild to moderate; patient may slur some words but can be understood without difficulty. -: 2=Severe; patients speech so slurred as to be unintelligible in the absence of dysphasia. -: UN=Intubated or other physical barrier, explain in comments. 10. Responses: 0 11. Extinction or inattention: 0=No abnormality -: 1= Visual, tactile, auditory, spatial, or personal inattention or extinction to bilateral simulation in one or the sensory modalities. -: 2=Profound sofía-inattention or sofía-inattention to more than one modality; does not recognize own hand. 11. Responses: 0 Total Score: 5 Discharge - Discharge Clinical Impression: Acute right MCA stroke CVA (cerebral vascular accident) Qualifiers: CVA mechanism: unspecified Qualified Code(s): I63.9 - Cerebral infarction, unspecified Condition: Stable Disposition: ADMITTED INPATIENT Admitting Provider: [facility] Unit Admitted: [facility]
[2017-11-10 14:37] LABS: INTERNATIONAL RATION (INR) 0.93; PROTHROMBIN TIME 12.9 SEC (11.4-15.4)
[2017-11-10 14:38] LABS: PARTIAL THROMBOPLASTIN TIME 43.5 SEC (23.5-35.8)
[2017-11-10 14:44] LABS: ABSOLUTE EOSINOPHILS # (AUTO) 0.3 10^3/uL (0.0-0.6); ABSOLUTE LYMPHOCYTES (AUTO) 1.3 10^3/uL (0.5-4.7); ABSOLUTE MONOCYTES (AUTO) 0.4 10^3/uL (0.1-1.4); ABSOLUTE NEUT (AUTO) 2.9 10^3/uL (1.7-8.2); HEMOGLOBIN 12.9 g/dL (12.0-15.5); TOTAL CELLS COUNTED % (AUTO) 100 %
[2017-11-10 14:49] LABS: ALANINE AMINOTRANSFERASE 28 U/L (9-52); ALBUMIN 4.2 g/dL (3.5-5.0); ALKALINE PHOSPHATASE 86 U/L (38-126); ANION GAP 15 (5-19); ASPARTATE AMINO TRANSFERASE 28 U/L (14-36); BILIRUBIN,DIRECT 0.5 mg/dL (0.0-0.4); BILIRUBIN,TOTAL 0.6 mg/dL (0.2-1.3); BLOOD UREA NITROGEN 20 mg/dL (7-20); CARBON DIOXIDE 23 mmol/L (22-30); CHLORIDE 109 mmol/L (98-107); CREATINE KINASE 80 U/L (30-135); GLUCOSE 123 mg/dL (75-110); POTASSIUM 3.9 mmol/L (3.6-5.0); SODIUM 146.6 mmol/L (137-145); TOTAL PROTEIN 7.8 g/dL (6.3-8.2)
[2017-11-10 14:58] LABS: ABSOLUTE BASOPHILS # (AUTO) 0.1 10^3/uL (0.0-0.2); EOSINOPHILS % (AUTO) 5.4 % (0-6); HEMATOCRIT 38.9 % (36.0-47.0); LYMPHOCYTES % (AUTO) 25.6 % (13-45); MEAN CORPUSCULAR HEMOGLOBIN 26.9 pg (27.0-33.4); MEAN CORPUSCULAR HGB CONC 33.3 g/dL (32.0-36.0); MEAN CORPUSCULAR VOLUME 81 fl (80-97); MONOCYTES % (AUTO) 7.9 % (3-13); PLATELET COUNT 233 10^3/uL (150-450); RED BLOOD COUNT 4.81 10^6/uL (3.72-5.28); RED CELL DISTRIBUTION WIDTH 15.2 % (11.5-14.0); SEGMENTED NEUTROPHILS % (AUTO) 59.1 % (42-78)
[2017-11-10 15:01] LABS: CREATINE KINASE MB 0.66 ng/mL (<4.55); TROPONIN I < 0.012 ng/mL
--- NOTE | 2017-11-10 17:10 | RADIOLOGY REPORT (SQ) ---
EXAM DESCRIPTION: MRI HEAD WITHOUT COMPLETED DATE/TIME: 11/10/2017 4:59 pm REASON FOR STUDY: left arm and leg weakness COMPARISON: 2010 TECHNIQUE: Multiplanar imaging includes non-contrasted T1, T2, FLAIR, and diffusion with ADC map seq uences. Images stored on PACS. LIMITATIONS: None. FINDINGS: ANATOMY: No anomalies. Normal vascular flow voids. Pituitary fossa normal. CSF SPACES: Atrophy induced prominence of ventricles and CSF spaces. CEREBRUM: High signal intensity lesions scattered throughout the white matter on FLAIR imaging with d istribution suggesting micro-vascular ischemic changes. No evidence of hemorrhage, mass, or extraaxi al fluid collection. There is a large chronic infarct involving the right occipital and parietal lob es. POSTERIOR FOSSA: No signal alteration. No hemorrhage. No edema, masses or mass effect. Internal adin tory canals, cerebello-pontine angles, mastoids normal. DIFFUSION IMAGING: Positive for restricted diffusion in the right globus pallidus. ORBITS: No masses. Globes normal. PARANASAL SINUSES: No fluid levels. Mucosa normal. OTHER: No other significant finding. IMPRESSION: Restricted diffusion indicating acute infarction in the right globus pallidus. 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 Microvascular ischemic changes and atrophy. EVIDENCE OF ACUTE STROKE: YES. RIGHT MCA TECHNICAL DOCUMENTATION: JOB ID: [id number] [employer]- All Rights Reserved Reading location - IP/workstation name: [email or web address]
[2017-11-10] MEDS ORDERED: NORMAL SALINE 1000 ML 1,000 ML IV PRN (18:46)
--- NOTE | 2017-11-10 19:07 | PDOC H&P ---
History of Present Illness Admission Date/PCP: 11/10/17 18:08 GUSTAVO STOLL MD Patient complains of: Weakness upper extremities History of Present Illness: LEYDI THOMAS is a 62 year old female With a known history of diabetes prior history of CVA was brought to the ED with a history of upper extremity weakness unable to ambulate Patient was seen in the ED on 11/07 when she presented with similar complaints CT of the head was performed showing chronic ischemic changes Patient became quite uncooperative and belligerent and was discharged from the ED Today she presents again with weakness she states right and left arm and on arrival could not move her left upper extremity An MRI of the brain was performed showing an acute infarct right globus pallidum and large old right occipital infarct. When evaluated later on for admission patient did not appear to have any lateralized deficits but was quite uncooperative with somewhat of an aggressive behavior. Patient was admitted to [facility] as an inpatient Patient stated "the only thing she would cooperate with his physical therapy" Past Medical History Cardiac Medical History: Reports: Hyperlipidema, Hypertension Denies: Heart Murmur Pulmonary Medical History: Reports: Respiratory Failure Denies: Tuberculosis Neurological Medical History: Reports: Seizures Psychiatric Medical History: Reports: Depression Past Surgical History Past Surgical History: Reports: Tubal Ligation Social History Smoking Status: Unknown if Ever Smoked Hx Recreational Drug Use: No Hx Prescription Drug Abuse: No - Advance Directive Resuscitation Status: Full Code Surrogate healthcare decision maker:: Patient is presumed to be a full code she does not really answer the question appropriately Family History Family History: Other - Patient is not answering questions appropriately Parental Family History Reviewed: Yes Children Family History Reviewed: Yes Sibling(s) Family History Reviewed.: Yes Medication/Allergy Home Medications: Clonidine HCl [Catapres 0.2 Mg Tablet] 0.2 mg PO TID 06/18/11 Hydralazine HCl [Apresoline 50 Mg Tablet] 100 mg PO TID 06/18/11 Simvastatin [Zocor 40 mg Tablet] 40 mg PO QHS 06/18/11 Aspirin [Ecotrin 81 mg EC Tablet] 81 mg PO DAILY 08/04/11 Carvedilol [Coreg] 50 mg PO DAILY 08/04/11 Hydrochlorothiazide [Hydrodiuril 25 mg Tablet] 25 mg PO QAM 08/04/11 Isosorbide Mononitrate 30 mg PO DAILY 08/04/11 Potassium Chloride [Klor-Con 10 Meq Tablet.sa] 20 meq PO BID 08/04/11 Levetiracetam [Keppra 500 Mg Tablet] 500 mg PO Q12H 12/01/11 Metformin HCl [Glucophage 500 Mg Tablet] 1,000 mg PO DAILY 01/23/12 Levetiracetam [Keppra 500 mg Tablet] 500 mg PO Q12 #60 tablet 10/03/16 Allergies/Adverse Reactions: fluphenazine [Fluphenazine] Allergy (Severe, Verified 09/17/17 11:35) haloperidol [From Haldol] Allergy (Unknown, Verified 09/17/17 11:35) haloperidol lactate [From Haldol] Allergy (Unknown, Verified 09/17/17 11:35) lisinopril [Lisinopril] Allergy (Unknown, Verified 11/10/17 11:55) Review of Systems ROS unobtainable: Due to mental status - Patient is not answering questions appropriately Physical Exam Vital Signs: Temp Pulse Resp BP Pulse Ox 99.3 F 78 18 132/73 H 94 11/10/17 15:00 11/10/17 17:40 11/10/17 18:01 11/10/17 18:01 11/10/17 18:01 General appearance: PRESENT: no acute distress, well-developed, well-nourished Head exam: PRESENT: atraumatic, normocephalic Eye exam: PRESENT: conjunctiva pink, EOMI, PERRLA. ABSENT: scleral icterus Neck exam: ABSENT: carotid bruit, JVD, lymphadenopathy, thyromegaly Respiratory exam: PRESENT: clear to auscultation dennis. ABSENT: rales, rhonchi, wheezes Pulses: PRESENT: normal dorsalis pedis pul Vascular exam: PRESENT: normal capillary refill GI/Abdominal exam: PRESENT: normal bowel sounds, soft. ABSENT: distended, guarding, mass, organolmegaly, rebound, tenderness Rectal exam: PRESENT: deferred Extremities exam: PRESENT: full ROM. ABSENT: calf tenderness, clubbing, pedal edema Neurological exam: PRESENT: awake, CN II-XII grossly intact Psychiatric exam: PRESENT: agitated Skin exam: PRESENT: dry, intact, warm. ABSENT: cyanosis, rash Results Laboratory Results: 11/10/17 11/10/17 11/10/17 11:48 11:48 11:48 WBC 5.0 Hgb 12.9 Hct 38.9 Sodium 146.6 H Potassium 3.9 Chloride 109 H Carbon Dioxide 23 BUN 20 Creatinine 1.34 H CK-MB (CK-2) 0.66 Troponin I < 0.012 Impressions: Chest X-Ray 11/10/17 00:00 IMPRESSION: NO ACUTE RADIOGRAPHIC FINDING IN THE CHEST. Head CT 11/10/17 00:00 IMPRESSION: Chronic ischemic changes. EVIDENCE OF ACUTE STROKE: NO. Head MRI 11/10/17 15:15 IMPRESSION: Restricted diffusion indicating acute infarction in the right globus pallidus. 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 Microvascular ischemic changes and atrophy. EVIDENCE OF ACUTE STROKE: YES. RIGHT MCA Assessment & Plan - Diagnosis (1) Diabetes mellitus type 2 in obese Is this a current diagnosis for this admission?: Yes (2) CVA (cerebral vascular accident) Qualifiers: CVA mechanism: unspecified Qualified Code(s): I63.9 - Cerebral infarction, unspecified Is this a current diagnosis for this admission?: Yes (3) Hypertension Qualifiers: Hypertension type: essential hypertension Qualified Code(s): I10 - Essential (primary) hypertension Is this a current diagnosis for this admission?: Yes (4) Seizure disorder Is this a current diagnosis for this admission?: Yes - Time Time Spent with patient: Patient is not very cooperative We will initiate aspirin and Lipitor Nursing swallow evaluation PT OT evaluation Complete workup if possible with carotid ultrasound and echocardiogram Patient will be admitted as an inpatient to [facility] Time Spent: 50 to 70 Minutes
[2017-11-10] MEDS ORDERED: ENOXAPARIN SODIUM INJ 40 MG/0.4 ML DISP.SYRIN SUBCUT ONE (19:15)
--- NOTE | 2017-11-10 19:38 | EKG REPORT ---
SEVERITY:- ABNORMAL ECG - SINUS RHYTHM BORDERLINE R WAVE PROGRESSION, ANTERIOR LEADS NONSPECIFIC T ABNORMALITIES, DIFFUSE LEADS : Confirmed by: Jaron Guerrero MD 10-Nov-2017 19:38:12
[2017-11-11] MEDS: ATORVASTATIN CALCIUM 80 MG TABLET PO SCH ×2 (00:26→21:46)
[2017-11-11] MEDS: FAMOTIDINE INJ/PF 20 MG/2 ML SDV IV SCH ×3 (00:32→21:42)
[2017-11-11 07:03] LABS: HEMATOCRIT 38.6 % (36.0-47.0); HEMOGLOBIN 12.8 g/dL (12.0-15.5); MEAN CORPUSCULAR HEMOGLOBIN 26.7 pg (27.0-33.4); MEAN CORPUSCULAR HGB CONC 33.1 g/dL (32.0-36.0); MEAN CORPUSCULAR VOLUME 81 fl (80-97); PLATELET COUNT 218 10^3/uL (150-450); RED BLOOD COUNT 4.79 10^6/uL (3.72-5.28); RED CELL DISTRIBUTION WIDTH 15.1 % (11.5-14.0); WHITE BLOOD COUNT 3.7 10^3/uL (4.0-10.5)
[2017-11-11 07:24] LABS: ANION GAP 15 (5-19); BLOOD UREA NITROGEN 22 mg/dL (7-20); CALCIUM 10.1 mg/dL (8.4-10.2); CARBON DIOXIDE 27 mmol/L (22-30); CHLORIDE 110 mmol/L (98-107); CHOLESTEROL 139.92 mg/dL (0-200); GLUCOSE 100 mg/dL (75-110); POTASSIUM 3.5 mmol/L (3.6-5.0); SODIUM 151.8 mmol/L (137-145); TRIGLYCERIDES 100 mg/dL (<150)
[2017-11-11 07:34] LABS: DIRECT LDL 60 mg/dL (<100)
--- NOTE | 2017-11-11 07:46 | EKG REPORT ---
SEVERITY:- ABNORMAL ECG - SINUS RHYTHM NONSPECIFIC T ABNORMALITIES, LATERAL LEADS : Confirmed by: Jaron Guerrero MD 11-Nov-2017 07:46:16
[2017-11-11 08:20] LABS: FREE T4 (FREE THYROXINE) 1.38 ng/dL (0.78-2.19)
[2017-11-11 08:34] LABS: THYROID STIMULATING HORMONE 1.18 uIU/mL (0.47-4.68)
[2017-11-11] MEDS: ASPIRIN 325 MG TABLET, ENT COATED PO SCH (09:56)
[2017-11-11] MEDS: ENOXAPARIN SODIUM INJ 40 MG/0.4 ML DISP.SYRIN SUBCUT SCH (09:56)
[2017-11-11] MEDS ORDERED: CARVEDILOL PO SCH (12:00)
[2017-11-11] MEDS ORDERED: LEVETIRACETAM 500 MG TABLET PO SCH (12:00)
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
[2017-11-11] MEDS ORDERED: 1/2 NORMAL SALINE 1,000 ML IV PRN (12:10)
[2017-11-11] MEDS ORDERED: LEVETIRACETAM 500 MG TABLET PO ONE (13:00)
[2017-11-11] MEDS: CLONIDINE HCL 0.1 MG TABLET PO SCH ×2 (13:13→21:46)
[2017-11-11] MEDS: HYDRALAZINE HCL 50 MG TABLET PO SCH ×2 (13:13→21:46)
[2017-11-11] MEDS ORDERED: HYDRALAZINE HCL 50 MG PO SCH (14:00)
[2017-11-11] MEDS ORDERED: CLONIDINE HCL 0.2 MG TABLET PO SCH ×2 (14:00)
[2017-11-11] MEDS: LEVETIRACETAM 500 MG TABLET PO SCH (21:46)
[2017-11-12] MEDS: HYDRALAZINE HCL 50 MG TABLET PO SCH ×2 (05:18→13:13)
[2017-11-12] MEDS: CLONIDINE HCL 0.1 MG TABLET PO SCH ×2 (05:19→13:12)
[2017-11-12 06:19] LABS: ABSOLUTE BASOPHILS # (AUTO) 0.1 10^3/uL (0.0-0.2); ABSOLUTE EOSINOPHILS # (AUTO) 0.2 10^3/uL (0.0-0.6); ABSOLUTE LYMPHOCYTES (AUTO) 1.2 10^3/uL (0.5-4.7); ABSOLUTE MONOCYTES (AUTO) 0.4 10^3/uL (0.1-1.4); HEMOGLOBIN 12.8 g/dL (12.0-15.5); TOTAL CELLS COUNTED % (AUTO) 100 %
[2017-11-12 06:23] LABS: ABSOLUTE NEUT (AUTO) 2.3 10^3/uL (1.7-8.2); BASOPHILS % (AUTO) 2.1 % (0-2); EOSINOPHILS % (AUTO) 5.8 % (0-6); HEMATOCRIT 38.4 % (36.0-47.0); LYMPHOCYTES % (AUTO) 28.2 % (13-45); MEAN CORPUSCULAR HEMOGLOBIN 26.9 pg (27.0-33.4); MEAN CORPUSCULAR HGB CONC 33.3 g/dL (32.0-36.0); MEAN CORPUSCULAR VOLUME 81 fl (80-97); MONOCYTES % (AUTO) 9.2 % (3-13); PLATELET COUNT 209 10^3/uL (150-450); RED BLOOD COUNT 4.77 10^6/uL (3.72-5.28); RED CELL DISTRIBUTION WIDTH 15.1 % (11.5-14.0); SEGMENTED NEUTROPHILS % (AUTO) 54.7 % (42-78); WHITE BLOOD COUNT 4.2 10^3/uL (4.0-10.5)
[2017-11-12 06:27] LABS: ANION GAP 15 (5-19); BLOOD UREA NITROGEN 18 mg/dL (7-20); CALCIUM 9.8 mg/dL (8.4-10.2); CARBON DIOXIDE 25 mmol/L (22-30); CHLORIDE 106 mmol/L (98-107); GLUCOSE 108 mg/dL (75-110); POTASSIUM 3.5 mmol/L (3.6-5.0)
[2017-11-12] MEDS ORDERED: HYDROCHLOROTHIAZIDE 25 MG TABLET PO SCH (08:00)
[2017-11-12] MEDS ORDERED: METFORMIN HCL 500 MG TABLET PO SCH (08:00)
[2017-11-12] MEDS: ASPIRIN 325 MG TABLET, ENT COATED PO SCH (09:53)
[2017-11-12] MEDS: ENOXAPARIN SODIUM INJ 40 MG/0.4 ML DISP.SYRIN SUBCUT SCH (09:53)
[2017-11-12] MEDS: FAMOTIDINE INJ/PF 20 MG/2 ML SDV IV SCH (09:55)
[2017-11-12] MEDS: LEVETIRACETAM 500 MG TABLET PO SCH (09:55)
[2017-11-12] MEDS ORDERED: CARVEDILOL 12.5 MG TABLET PO SCH (10:00)
[2017-11-12] MEDS ORDERED: ISOSORBIDE MONONITRATE 30 MG TAB.ER.24H PO SCH (10:00)
--- NOTE | 2017-11-12 15:17 | RADIOLOGY REPORT (SQ) ---
EXAM DESCRIPTION: CAROTID DOPPLER COMPLETED DATE/TIME: 11/12/2017 3:08 pm REASON FOR STUDY: acute CVA COMPARISON: None. TECHNIQUE: Grayscale ultrasound, Doppler velocity and spectra, and color Doppler images acquired of the extra-cranial carotid and vertebral arteries. Images stored on PACS. LIMITATIONS: None. FINDINGS: RIGHT CAROTID CCA Velocities: Within normal limits. ICA Velocities Peak systolic 0.80 m/s. End diastolic 0.32 m/s. Proximal ICA/CCA peak systolic ratio 2.0. Spectra normal. No significant plaque. LEFT CAROTID CCA Velocities: Within normal limits. ICA Velocities Peak systolic 0.61 m/s. End diastolic 0.26 m/s. Proximal ICA/CCA peak systolic ratio 1.5. Spectra normal. No significant plaque. VERTEBRAL ARTERIES: Antegrade flow. Normal waveforms. SUBCLAVIAN ARTERIES: No finding. OTHER: No other significant finding. IMPRESSION: NO HEMODYNAMICALLY SIGNIFICANT STENOSIS. COMMENT: Quality ID #[id number]: Velocity criteria are extrapolated from the diameter data as defined by t he Society of Radiologists in Ultrasound Consensus Conference. Radiology 2003: 229; 340-346. TECHNICAL DOCUMENTATION: JOB ID: [id number] [employer]- All Rights Reserved Reading location - IP/workstation name: [email or web address]
--- NOTE | 2017-11-12 15:52 | XCELERA REPORT ---
[address] [address] Transthoracic Echocardiogram Report Name: LEYDI THOMAS Age: 62 yrs Gender: Female : 1955 Patient Status: Inpatient Patient Location: [address] [place] [address] Study Date: 11/12/2017 11:15 AM Height: 69 in Weight: 181 lb BSA: 2.0 m2 Procedure: A complete two-dimensional transthoracic echocardiogram was performed (2D, M-mode, spectral and color flow Doppler). The study was technically adequate with some images being suboptimal in quality. Reason For Study: acute CVA Ordering Physician: NITA ARROYO Performed By: Kassidy Resendez Interpretation Summary The left ventricular ejection fraction is within normal limits. Doppler measurements suggest pseudonormalized left ventricular relaxation, which is associated with grade II/IV or mild to moderate diastolic dysfunction There is mild to moderate concentric left ventricular hypertrophy. The left ventricle is grossly normal size. Wall motion cannot be accurately commented on, but no definite regional wall motion abnormalities noted. The right ventricular systolic function is normal. The left atrium is mildly dilated. The right atrium is normal in size There is a trace amount of mitral regurgitation There is no mitral valve stenosis. No aortic regurgitation is present. There is no aortic valve stenosis There is a trace or physiologic amount of tricuspid regurgitation Tricuspid regurgitation jet envelope not well defined to measure RV systolic pressure accurately. The aortic root is not well visualized. The inferior vena cava appeared normal and decreased > 50% with respiration (RAP 5-10 mmHg) There is no pericardial effusion. No definite cardiac source of CVA/TIA noted on this particular trans- thoracic study. Consider YUMI if clinically indicated. May consider mobile cardiac telemetry monitoring (MCT) for ruling out transient AFIB. MMode/2D Measurements & Calculations RVDd: 3.9 cm LVIDd: 4.4 cm FS: 37.8 % Ao root diam: 2.7 cm IVSd: 1.1 cm LVIDs: 2.7 cm EDV(Teich): 87.8 ml LVPWd: 1.1 cm ESV(Teich): 28.0 ml Ao root area: 5.9 cm2 EF(Teich): 68.1 % Doppler Measurements & Calculations MV E max milind: MV dec slope: Ao V2 max: LV V1 max P.6 cm/sec 135.6 cm/sec 4.4 mmHg MV A max milind: 227.0 cm/sec2 Ao max PG: LV V1 max: 95.6 cm/sec MV dec time: 7.4 mmHg 104.3 cm/sec MV E/A: 0.78 0.33 sec PA V2 max: TR max milind: 97.3 cm/sec 235.0 cm/sec PA max PG: TR max P.2 mmHg 3.8 mmHg Left Ventricle The left ventricle is grossly normal size. There is mild to moderate concentric left ventricular hypertrophy. The left ventricular ejection fraction is within normal limits. Doppler measurements suggest pseudonormalized left ventricular relaxation, which is associated with grade II/IV or mild to moderate diastolic dysfunction. Wall motion cannot be accurately commented on, but no definite regional wall motion abnormalities noted. Right Ventricle The right ventricle is normal size. There is normal right ventricular wall thickness. The right ventricular systolic function is normal. Atria The right atrium is normal in size. The left atrium is mildly dilated. Interarterial septum not well visualized and not well dopplered. Cannot comment on ASD/PFO presence. Mitral Valve The mitral valve is grossly normal. There is no mitral valve stenosis. There is a trace amount of mitral regurgitation. Aortic Valve The aortic valve is grossly normal. There is no aortic valve stenosis. No aortic regurgitation is present. Tricuspid Valve The tricuspid valve is not well visualized, but is grossly normal. There is no tricuspid stenosis. There is a trace or physiologic amount of tricuspid regurgitation. Tricuspid regurgitation jet envelope not well defined to measure RV systolic pressure accurately. Pulmonic Valve The pulmonic valve is not well visualized. Great Vessels The aortic root is not well visualized. The inferior vena cava appeared normal and decreased > 50% with respiration (RAP 5-10 mmHg). Effusions There is no pericardial effusion. Incidental Findings No definite cardiac source of CVA/TIA noted on this particular trans- thoracic study. Consider YUMI if clinically indicated. May consider mobile cardiac telemetry monitoring (MCT) for ruling out transient AFIB. : NITA ARROYO > Fredo Olea
[2017-11-12 17:00] VITALS: BP 145/93
--- NOTE | 2017-11-12 19:25 | PDOC DISCHARGE SUMMARY ---
General - Admit/Disc Date/PCP Admission Date/Primary Care Provider: 11/10/17 18:08 GUSTAVO STOLL MD Discharge Date: 11/12/17 - Discharge Diagnosis (2) Diabetes mellitus type 2 in obese Is this a current diagnosis for this admission?: Yes (3) Seizure disorder Is this a current diagnosis for this admission?: Yes (4) Hypertension Is this a current diagnosis for this admission?: Yes - Additional Information Resuscitation Status: Full Code Discharge Diet: Cardiac, Diabetic Discharge Activity: Activity As Tolerated Prescriptions: Atorvastatin Calcium [Lipitor 80 mg Tablet] 80 mg PO QHS 30 Days tablet Home Medications: Carvedilol [Coreg 25 mg Tablet] 2 tab PO DAILY 11/10/17 Clonidine HCl [Catapres 0.2 mg Tablet] 0.2 mg PO Q8 11/10/17 Hydralazine HCl 100 mg PO Q8 11/10/17 Hydrochlorothiazide [Hydrodiuril 25 mg Tablet] 25 mg PO QAM 11/10/17 Isosorbide Mononitrate [Imdur 30 mg Tablet.er] 30 mg PO DAILY 11/10/17 Levetiracetam [Keppra 500 mg Tablet] 500 mg PO Q12 11/10/17 Metformin HCl [Glucophage] 1,000 mg PO [id number] 11/10/17 Potassium Chloride [Klor-Con 10] 10 meq PO DAILY 11/10/17 Aspirin [Ecotrin 325 mg EC Tablet] 325 mg PO DAILY tabec 11/12/17 Atorvastatin Calcium [Lipitor 80 mg Tablet] 80 mg PO QHS 30 Days tablet History of Present Illness History of Present Illness: LEYDI THOMAS is a 62 year old female Admitted with a stroke Hospital Course Hospital Course: Patient was admitted with 2 day history of left arm and leg weakness as well as decreased sensation. She was thought to have an acute CVA and did not qualify for alteplase treatment as her symptoms started 2 days prior. She was monitored on the medical unit. She was seen by physical therapy and outpatient physical therapy was advised. Her blood pressure was found to be poorly controlled and this was cautiously and judiciously lowered. Patient was initially confused but she appears to be back at her baseline mental status at this time. Echocardiogram done revealed a mild to moderate concentric left ventricular hypertrophy with normal ejection fraction. Patient was referred to Dr. Olea as outpatient for possible cardiac telemetry monitoring as outpatient. Patient was placed in high dose aspirin and has statin-induced was also increased to high-dose Would no further interventions been planned and with hemodynamic stability patient is been discharged home with family Physical Exam Vital Signs: Temp Pulse Resp BP Pulse Ox 98.9 F 71 14 148/71 H 99 11/12/17 12:16 11/12/17 14:00 11/12/17 12:00 11/12/17 12:16 11/12/17 12:16 Intake & Output 11/11/17 11/12/17 11/13/17 06:59 06:59 06:59 Intake Total 238 3087 Balance 238 3087 Weight 75.3 kg 77.7 kg General appearance: PRESENT: no acute distress Head exam: PRESENT: atraumatic Eye exam: PRESENT: conjunctiva pink, EOMI, PERRLA. ABSENT: scleral icterus Ear exam: PRESENT: normal external ear exam Neck exam: ABSENT: carotid bruit, JVD, lymphadenopathy, thyromegaly Cardiovascular exam: PRESENT: RRR. ABSENT: diastolic murmur, rubs, systolic murmur GI/Abdominal exam: PRESENT: normal bowel sounds, soft. ABSENT: distended, guarding, mass, organolmegaly, rebound, tenderness Rectal exam: PRESENT: deferred Musculoskeletal exam: PRESENT: ambulatory Neurological exam: PRESENT: alert, awake, oriented to person, motor sensory deficit - mild left upper and lower extremity weakness Psychiatric exam: PRESENT: appropriate affect Results Laboratory Results: 11/12/17 05:45 11/12/17 05:45 11/12/17 11/12/17 05:45 05:45 WBC 4.2 RBC 4.77 Hgb 12.8 Hct 38.4 MCV 81 MCH 26.9 L MCHC 33.3 RDW 15.1 H Plt Count 209 Seg Neutrophils % 54.7 Lymphocytes % 28.2 Monocytes % 9.2 Eosinophils % 5.8 Basophils % 2.1 H Absolute Neutrophils 2.3 Absolute Lymphocytes 1.2 Absolute Monocytes 0.4 Absolute Eosinophils 0.2 Absolute Basophils 0.1 Sodium 146.0 H Potassium 3.5 L Chloride 106 Carbon Dioxide 25 Anion Gap 15 BUN 18 Creatinine 1.11 Est GFR ( Amer) > 60 Est GFR (Non-Af Amer) 50 L Glucose 108 Calcium 9.8 0411/11/17 11/11/17 00:24 06:26 12:14 Troponin I < 0.012 < 0.012 < 0.012 Impressions: Chest X-Ray 11/10/17 00:00 IMPRESSION: NO ACUTE RADIOGRAPHIC FINDING IN THE CHEST. Head CT 11/10/17 00:00 IMPRESSION: Chronic ischemic changes. EVIDENCE OF ACUTE STROKE: NO. Head MRI 11/10/17 15:15 IMPRESSION: Restricted diffusion indicating acute infarction in the right globus pallidus. 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 Microvascular ischemic changes and atrophy. EVIDENCE OF ACUTE STROKE: YES. RIGHT MCA Carotid Doppler Study 11/12/17 00:00 IMPRESSION: NO HEMODYNAMICALLY SIGNIFICANT STENOSIS. Qualifiers - * PATIENT BEING DISCHARGED WITH ANY OF THE FOLLOWING DIAGNOSIS: Stroke Stroke Pt being discharged on Anti-thrombolytic therapy?: Yes Stroke Pt being discharged on Anti-coagulation therapy?: No Reason(s) for not prescribing Anti-coagulation therapy:: Not indicated Stroke Pt being discharged on Statins?: Yes
[2017-11-12] MEDS ORDERED: HYDRALAZINE HCL 50 MG TABLET PO SCH (22:00)
== END 2017-11-12 17:43 | disposition home health service (06) | DRG 66 ==
LOC: ER 11:29 → EH 18:08 → 3S 23:44
PROVIDERS: ADMIT Internal Medicine; ATTEND Internal Medicine
DX: I63.511 Cerebral infarction due to unspecified occlusion or stenosis of right middle cerebral artery (principal); E11.69 Type 2 diabetes mellitus with other specified complication; E66.9 Obesity, unspecified; G40.909 Epilepsy, unspecified, not intractable, without status epilepticus; I10 Essential (primary) hypertension; R53.1 Weakness; E78.00 Pure hypercholesterolemia, unspecified; F32.9 Major depressive disorder, single episode, unspecified; F20.9 Schizophrenia, unspecified; Z79.82 Long term (current) use of aspirin; Z79.84 Long term (current) use of oral hypoglycemic drugs; Z79.899 Other long term (current) drug therapy; Z88.8 Allergy status to other drugs, medicaments and biological substances
CPT/HCPCS: 36415; 70450; 70551; 71045; 80048; 80053; 80061; 82550; 82553; 82962; 83036; 84439; 84443; 84484; 85025; 85027; 85610; 85730; 93005; 93010; 93306; 93880; 99285; J1650; J7030; S0028

== ENCOUNTER 2017-11-15 11:10 | Emergency (ER) | payer MEDICAID ==
--- NOTE | 2017-11-15 11:34 | RADIOLOGY REPORT (SQ) ---
EXAM DESCRIPTION: CT HEAD WITHOUT COMPLETED DATE/TIME: 11/15/2017 11:20 am REASON FOR STUDY: cva COMPARISON: MRI brain 11/10/[address] brain exams since 01/18/2011, most recently 11/10/2017 TECHNIQUE: Axial images acquired through the brain without intravenous contrast. Images reviewed wi th bone, brain and subdural windows. Additional sagittal and coronal reconstructions were generated. Images stored on PACS. All CT scanners at this facility use dose modulation, iterative reconstruction, and/or weight based d osing when appropriate to reduce radiation dose to as low as reasonably achievable (ALARA). [facility]: Dose Right [facility]: CareDose [facility]: Dose Right [facility]: Teradose 4D [facility]: Smart Ping Communication RADIATION DOSE: CT Rad equipment meets quality standard of care and radiation dose reduction techniq ues were employed. CTDIvol: 53.2 mGy. DLP: 1097 mGy-cm. mGy. LIMITATIONS: None. FINDINGS: VENTRICLES: Normal size and contour. CEREBRUM: Bifrontal and biparietal low attenuation from chronic small vessel ischemic change right gr eater than left. Old right posterior cerebral artery distribution infarct. No CT evidence of acute i schemic change, acute intracranial hemorrhage, mass effect, or midline shift CEREBELLUM: No masses. No hemorrhage. No alteration of density. No evidence for acute infarction. EXTRAAXIAL SPACES: No fluid collections. No masses. ORBITS AND GLOBE: No intra- or extraconal masses. Normal contour of globe without masses. CALVARIUM: No fracture. PARANASAL SINUSES: No fluid or mucosal thickening. SOFT TISSUES: No mass or hematoma. OTHER: No other significant finding. IMPRESSION: Extensive bilateral deep periventricular white matter disease, old right posterior cereb ral artery distribution infarct. No acute findings. EVIDENCE OF ACUTE STROKE: NO. COMMENT: Quality ID # [id number]: Final reports with documentation of one or more dose reduction techniques (e.g., Automated exposure control, adjustment of the mA and/or kV according to patient size, use of iterative reconstruction technique) TECHNICAL DOCUMENTATION: JOB ID: [id number] [employer]- All Rights Reserved Reading location - IP/workstation name: [email or web address]
--- NOTE | 2017-11-15 11:35 | RADIOLOGY REPORT (SQ) ---
EXAM DESCRIPTION: CHEST SINGLE VIEW COMPLETED DATE/TIME: 11/15/2017 11:24 am REASON FOR STUDY: STROKE ALERT COMPARISON: AP chest 11/10/2017, 09/17/2017 EXAM PARAMETERS: NUMBER OF VIEWS: One view. TECHNIQUE: Single frontal radiographic view of the chest acquired. RADIATION DOSE: NA LIMITATIONS: None. FINDINGS: LUNGS AND PLEURA: No opacities, masses or pneumothorax. No pleural effusion. Skin folds a re projected over the right chest MEDIASTINUM AND HILAR STRUCTURES: No masses. Contour normal. HEART AND VASCULAR STRUCTURES: Mild cardiomegaly BONES: No acute findings. HARDWARE: None in the chest. OTHER: No other significant finding. IMPRESSION: No acute infiltrates. Mild cardiomegaly. TECHNICAL DOCUMENTATION: JOB ID: [id number] [employer]- All Rights Reserved Reading location - IP/workstation name: [email or web address]
[2017-11-15 11:55] LABS: INTERNATIONAL RATION (INR) 0.94; PROTHROMBIN TIME 13.1 SEC (11.4-15.4)
[2017-11-15 12:07] LABS: ABSOLUTE BASOPHILS # (AUTO) 0.1 10^3/uL (0.0-0.2); ABSOLUTE EOSINOPHILS # (AUTO) 0.2 10^3/uL (0.0-0.6); ABSOLUTE LYMPHOCYTES (AUTO) 0.9 10^3/uL (0.5-4.7); ABSOLUTE MONOCYTES (AUTO) 0.4 10^3/uL (0.1-1.4); EOSINOPHILS % (AUTO) 2.6 % (0-6); HEMOGLOBIN 12.4 g/dL (12.0-15.5); LYMPHOCYTES % (AUTO) 14.4 % (13-45); MEAN CORPUSCULAR HEMOGLOBIN 27.1 pg (27.0-33.4); MEAN CORPUSCULAR HGB CONC 33.4 g/dL (32.0-36.0); MEAN CORPUSCULAR VOLUME 81 fl (80-97); MONOCYTES % (AUTO) 5.5 % (3-13); PLATELET COUNT 228 10^3/uL (150-450); RED BLOOD COUNT 4.56 10^6/uL (3.72-5.28); RED CELL DISTRIBUTION WIDTH 15.2 % (11.5-14.0); SEGMENTED NEUTROPHILS % (AUTO) 76.5 % (42-78); TOTAL CELLS COUNTED % (AUTO) 100 %; WHITE BLOOD COUNT 6.5 10^3/uL (4.0-10.5)
[2017-11-15 12:25] LABS: ALANINE AMINOTRANSFERASE 31 U/L (9-52); ALBUMIN 4.3 g/dL (3.5-5.0); ALKALINE PHOSPHATASE 86 U/L (38-126); ANION GAP 15 (5-19); ASPARTATE AMINO TRANSFERASE 29 U/L (14-36); BILIRUBIN,DIRECT 0.4 mg/dL (0.0-0.4); BILIRUBIN,TOTAL 0.8 mg/dL (0.2-1.3); BLOOD UREA NITROGEN 28 mg/dL (7-20); CARBON DIOXIDE 26 mmol/L (22-30); CHLORIDE 108 mmol/L (98-107); GLUCOSE 115 mg/dL (75-110); POTASSIUM 3.4 mmol/L (3.6-5.0); SODIUM 148.9 mmol/L (137-145); TOTAL PROTEIN 7.4 g/dL (6.3-8.2)
--- NOTE | 2017-11-15 13:56 | ER Document Report ---
ED General - General Chief Complaint: General Weakness Stated Complaint: POSSIBLE STROKE Time Seen by Provider: 11/15/17 11:13 Mode of Arrival: Ambulatory Notes: History of present illness-62 years old female with a history of anxiety attack , had an argument with this son, subsequently claimed that she could not move her right arm and right leg therefore called the EMS and came to the ER. In the ER she was yelling at people saying that I have paralysis on the right side. Then after while she was able to move her right arm. Then suddenly got up and went to the bathroom walked all the way. Without showing any weakness. REVIEW OF SYSTEMS: CONSTITUTIONAL : Denies fever, chills, or sweats. Denies recent illness. EENT: Denies eye, ear, throat, or mouth pain or symptoms. Denies nasal or sinus congestion or discharge. Denies throat, tongue, or mouth swelling or difficulty swallowing. CARDIOVASCULAR: Denies chest pain. Denies palpitations or racing or irregular heart beat. Denies ankle edema. RESPIRATORY: Denies cough, cold, or chest congestion. Denies shortness of breath, difficulty breathing, or wheezing. GASTROINTESTINAL: Denies abdominal pain or distention. Denies nausea, vomiting , or diarrhea. Denies blood in vomitus, stools, or per rectum. Denies black, tarry stools. Denies constipation. GENITOURINARY: Denies difficulty urinating, painful urination, burning, frequency, blood in urine, or discharge. FEMALE GENITOURINARY: Denies vaginal bleeding, heavy or abnormal periods, irregular periods. Denies vaginal discharge or odor. MUSCULOSKELETAL: Denies back or neck pain or stiffness. Denies joint pain or swelling. SKIN: Denies rash, lesions or sores. HEMATOLOGIC : Denies easy bruising or bleeding. LYMPHATIC: Denies swollen, enlarged glands. NEUROLOGICAL: Denies confusion or altered mental status. Denies passing out or loss of consciousness. Denies dizziness or lightheadedness. Denies headache. Denies weakness or paralysis or loss of use of either side. Denies problems with gait or speech. Denies sensory loss, numbness, or tingling. Denies seizures. PSYCHIATRIC: Denies anxiety or stress. Denies depression, suicidal ideation, or homicidal ideation. ALL OTHER SYSTEMS REVIEWED AND NEGATIVE. PHYSICAL EXAMINATION: GENERAL: Well-appearing, well-nourished and in no acute distress. HEAD: Atraumatic, normocephalic. EYES: Pupils equal round and reactive to light, extraocular movements intact, conjunctiva are normal. ENT: Nares patent, oropharynx clear without exudates. Moist mucous membranes. NECK: Normal range of motion, supple without lymphadenopathy LUNGS: Breath sounds clear to auscultation bilaterally and equal. No wheezes rales or rhonchi. HEART: Regular rate and rhythm without murmurs ABDOMEN: Soft, nontender, nondistended abdomen. No guarding, no rebound. No masses appreciated. Female : deferred Musculoskeletal: Normal range of motion, no pitting or edema. No cyanosis. NEUROLOGICAL: Cranial nerves grossly intact. Normal speech, normal gait. Normal sensory, motor exams PSYCH: Normal mood, normal affect. SKIN: Warm, Dry, normal turgor, no rashes or lesions noted. Dictation was performed using [employer] voice recognition software TRAVEL OUTSIDE OF THE [place] IN LAST 30 DAYS: No - HPI Onset: Just prior to arrival Onset/Duration: Sudden Quality of pain: denies: No pain, Achy, Burning, Cramping, Dull, Fullness, Pressure, Sharp, Stabbing, Throbbing, Other Severity: None Pain Level: Denies Associated symptoms: denies: None, Allergy/hay fever, Body/muscle aches, Chest pain, Chills, Nonproductive cough, Productive cough, Diarrhea, Drooling, Earache , Fever, Headache, Hoarseness, Hurts to breath, Leg swelling, Nausea, Vomiting, Rhinnorhea, Sinus pain/drainage, Shortness of breath, Slow to respond, Sore throat, Sweating, Weakness, Other Exacerbated by: denies: Denies, Supine, Sitting, Standing, Movement, Walking, Coughing, Deep breathing, Food, Other Relieved by: denies: Denies, Supine, Sitting, Standing, Remaining still, Antacids, Food, Other - Related Data Allergies/Adverse Reactions: fluphenazine [Fluphenazine] Allergy (Severe, Verified 09/17/17 11:35) haloperidol [From Haldol] Allergy (Unknown, Verified 09/17/17 11:35) haloperidol lactate [From Haldol] Allergy (Unknown, Verified 09/17/17 11:35) lisinopril [Lisinopril] Allergy (Unknown, Verified 04/23/18 11:55) Past Medical History - Social History Smoking Status: Unknown if Ever Smoked Cigarette use (# per day): No Chew tobacco use (# tins/day): No Smoking Education Provided: No Frequency of alcohol use: Rare Lives with: Alone, Family, Parents, Spouse/Significant other, Friend, Grandparent(s), Guardian, Homeless, Detention, Other Family History: Reviewed & Not Pertinent, Other - Patient is not answering questions appropriately. denies: None, Arthritis, CAD, COPD, CVA, DM, Hyperlipidemia, Hypertension, Malignancy, Thyroid Disfunction Patient has suicidal ideation: No Patient has homicidal ideation: No - Past Medical History Cardiac Medical History: Reports: Hx Hypercholesterolemia, Hx Hypertension Denies: Hx Heart Murmur Pulmonary Medical History: Reports: Hx Respiratory Failure Denies: Hx Tuberculosis Neurological Medical History: Reports: Hx Cerebrovascular Accident, Hx Seizures Renal/ Medical History: Denies: Hx Peritoneal Dialysis Psychiatric Medical History: Reports: Hx Schizophrenia Denies: Hx Depression Past Surgical History: Reports: Hx Tubal Ligation - Immunizations Hx Diphtheria, Pertussis, Tetanus Vaccination: Yes Review of Systems - Review of Systems EENT: denies: No symptoms reported, See HPI, Eye pain, Eye discharge, Blurred vision, Tearing, Double vision, Ear pain, Ear discharge, Nose pain, Nose congestion, Nose discharge, Sinus pressure, Sinus discharge, Throat pain, Difficulty swallowing, Throat swelling, Mouth pain, Mouth swelling, Dental problem, Vertigo, Other Cardiovascular: denies: No symptoms reported, See HPI, Chest pain, Palpitations , Heart racing, Orthopnea, Dyspnea, Syncope, Dizziness, Lightheaded, Edema, Other, Paroxysmal Nocturnal Dysp Respiratory: denies: No symptoms reported, See HPI, Cough, Hurts to breathe, Hemoptysis, Short of breath, Sputum, Stridor, Wheezing, Other Gastrointestinal: denies: No symptoms reported, See HPI, Abdomen distended, Abdominal pain, Diarrhea, Nausea, Vomiting, Constipation, Blood streaked bowels , Poor appetite, Poor fluid intake, Blood in vomit, Black stools, Rectal bleeding, Last bowel movement, Fecal incontinence, Other Genitourinary: denies: No symptoms reported, See HPI, Burning, Dysuria, Discharge, Frequency, Flank pain, Hematuria, Incontinence, Pain, Urgency, Retention, Other Female Genitourinary: denies: No symptoms reported, See HPI, Last menstrual period, , Post menopausal, Heavy/abnormal periods, Irregular period, Vaginal bleeding, Vaginal discharge, Vaginal odor, Painful intercourse, Other Musculoskeletal: denies: No symptoms reported, See HPI, Back pain, Gout, Joint pain, Joint swelling, Muscle pain, Muscle stiffness, Neck pain, Deformity, Leg swelling, Ankle swelling, Other Hematologic/Lymphatic: denies: No symptoms reported, See HPI, Anemia, Blood clots, Easy bleeding, Easy bruising, Enlarged lymph nodes, Swollen glands, Other Neurological/Psychological: denies: No symptoms reported, See HPI, Confusion, Dementia, Depression, Hallucinations, Anxiety, Homicidal ideation, Sensory change, Weakness, Gait changes, Loss of power, Paralysis, Seizure, Lost consciousness, Headaches, Speech impairment, Numbness, Suicidal ideation, Tingling, Tremor, Other Physical Exam - Vital signs Vitals: Temp Resp 98.6 F 16 11/15/17 11:57 11/15/17 11:57 - Notes Notes: Dictated Course - Re-evaluation Re-evalutation: 11/15/17 13:56 Feels better and wants to go home. - Vital Signs Vital signs: Temp Pulse Resp BP Pulse Ox 98.6 F 16 11/15/17 11:57 11/15/17 11:57 - Laboratory Result Diagrams: 11/15/17 10:48 11/15/17 10:48 Laboratory results interpreted by me: 11/15/17 11/15/17 10:48 10:48 RDW 15.2 H Sodium 148.9 H Potassium 3.4 L Chloride 108 H BUN 28 H Est GFR ( Amer) 54 L Est GFR (Non-Af Amer) 45 L Glucose 115 H - Diagnostic Test Radiology reviewed: Reports reviewed - CT of the head was reported by radiologist as extensive infarct old and periventricular enlargement. Chest x- ray was negative for any infiltration or effusion. 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
[2017-11-15 14:09] VITALS: BP 160/90
== END 2017-11-15 14:15 | disposition home or self-care (01) ==
LOC: ER 11:10
DX: F41.9 Anxiety disorder, unspecified (principal); G30.0 Alzheimer's disease with early onset; F02.80 Dementia in other diseases classified elsewhere, unspecified severity, without behavioral disturbance, psychotic disturbance, mood disturbance, and anxiety; F32.9 Major depressive disorder, single episode, unspecified; I10 Essential (primary) hypertension; Z86.73 Personal history of transient ischemic attack (TIA), and cerebral infarction without residual deficits; Z88.8 Allergy status to other drugs, medicaments and biological substances
CPT/HCPCS: 36415; 70450; 71045; 80053; 85025; 85610; 99285

== ENCOUNTER 2018-02-05 09:31 | Emergency (ER) | payer MEDICAID ==
--- NOTE | 2018-02-05 09:52 | ER Document Report ---
ED Medical Screen (RME) - General Chief Complaint: Upper Abdominal Pain Stated Complaint: WEAKNESS Time Seen by Provider: 02/05/18 09:45 Notes: RAPID MEDICAL EVALUATION DISCLOSURE I have seen this patient as part of a Rapid Medical Evaluation and, if applicable, placed any initially appropriate orders. The patient will be seen and fully evaluated, including a full history and physical exam, by a provider ( in Main ED or Fast Track) when a room becomes available. 63-year-old female here with 5 months of epigastric and left upper quadrant abdominal pain shortness of breath on exertion. She has had some associated nausea. She has not tried anything for the symptoms. She has not had any chest pain vomiting diaphoresis lightheadedness. She has also had some diarrhea the past few days. EXAM Mild left upper quadrant TTP Mild to moderate epigastric TTP TRAVEL OUTSIDE OF THE [place] IN LAST 30 DAYS: No - Related Data Allergies/Adverse Reactions: fluphenazine [Fluphenazine] Allergy (Severe, Verified 02/05/18 09:49) haloperidol [From Haldol] Allergy (Unknown, Verified 02/05/18 09:49) haloperidol lactate [From Haldol] Allergy (Unknown, Verified 02/05/18 09:49) lisinopril [Lisinopril] Allergy (Unknown, Verified 02/05/18 09:49) Past Medical History - Social History Chew tobacco use (# tins/day): No Frequency of alcohol use: None Drug Abuse: None - Past Medical History Cardiac Medical History: Reports: Hx Hypercholesterolemia, Hx Hypertension Denies: Hx Heart Murmur Pulmonary Medical History: Reports: Hx Respiratory Failure Denies: Hx Tuberculosis Neurological Medical History: Reports: Hx Cerebrovascular Accident, Hx Seizures Renal/ Medical History: Denies: Hx Peritoneal Dialysis Psychiatric Medical History: Reports: Hx Schizophrenia Denies: Hx Depression Past Surgical History: Reports: Hx Tubal Ligation - Immunizations Hx Diphtheria, Pertussis, Tetanus Vaccination: Yes Physical Exam - Vital signs Vitals: Temp Pulse Resp BP Pulse Ox 98.6 F 69 18 107/63 96 02/05/18 09:35 02/05/18 09:35 02/05/18 09:35 02/05/18 09:35 02/05/18 09:35 Course - Vital Signs Vital signs: Temp Pulse Resp BP Pulse Ox 98.6 F 69 18 107/63 96 02/05/18 09:35 02/05/18 09:35 02/05/18 09:35 02/05/18 09:35 02/05/18 09:35 Doctor's Discharge - Discharge Referrals: GUSTAVO STOLL MD [Primary Care Provider] - Follow up as needed
[2018-02-05 10:33] LABS: ABSOLUTE BASOPHILS # (AUTO) 0.1 10^3/uL (0.0-0.2); ABSOLUTE LYMPHOCYTES (AUTO) 0.7 10^3/uL (0.5-4.7); ABSOLUTE MONOCYTES (AUTO) 0.6 10^3/uL (0.1-1.4); ABSOLUTE NEUT (AUTO) 3.5 10^3/uL (1.7-8.2); BASOPHILS % (AUTO) 1.1 % (0-2); EOSINOPHILS % (AUTO) 0.6 % (0-6); HEMATOCRIT 36.6 % (36.0-47.0); HEMOGLOBIN 12.7 g/dL (12.0-15.5); LYMPHOCYTES % (AUTO) 14.4 % (13-45); MEAN CORPUSCULAR HEMOGLOBIN 27.3 pg (27.0-33.4); MEAN CORPUSCULAR HGB CONC 34.6 g/dL (32.0-36.0); MEAN CORPUSCULAR VOLUME 79 fl (80-97); MONOCYTES % (AUTO) 12.3 % (3-13); PLATELET COUNT 215 10^3/uL (150-450); RED BLOOD COUNT 4.64 10^6/uL (3.72-5.28); RED CELL DISTRIBUTION WIDTH 16.1 % (11.5-14.0); SEGMENTED NEUTROPHILS % (AUTO) 71.6 % (42-78); TOTAL CELLS COUNTED % (AUTO) 100 %; WHITE BLOOD COUNT 4.8 10^3/uL (4.0-10.5)
--- NOTE | 2018-02-05 10:36 | RADIOLOGY REPORT (SQ) ---
EXAM DESCRIPTION: CHEST 2 VIEWS COMPLETED DATE/TIME: 02/05/2018 10:17 am REASON FOR STUDY: epigastric pain SOB COMPARISON: 01/24/2012 EXAM PARAMETERS: NUMBER OF VIEWS: two views TECHNIQUE: Digital Frontal and Lateral radiographic views of the chest acquired. RADIATION DOSE: NA LIMITATIONS: none FINDINGS: LUNGS AND PLEURA: No opacities, masses or pneumothorax. No pleural effusion. MEDIASTINUM AND HILAR STRUCTURES: No masses or contour abnormalities. HEART AND VASCULAR STRUCTURES: Cardiac silhouette remains at the upper limits of normal in size. BONES: No acute findings. HARDWARE: Degenerative changes are again identified in the thoracic spine OTHER: No other significant finding. IMPRESSION: NO ACUTE RADIOGRAPHIC FINDING IN THE CHEST. TECHNICAL DOCUMENTATION: JOB ID: [id number] [employer]- All Rights Reserved Reading location - IP/workstation name: [email or web address]
[2018-02-05 10:53] LABS: ALANINE AMINOTRANSFERASE 368 U/L (9-52); ALBUMIN 4.2 g/dL (3.5-5.0); ALKALINE PHOSPHATASE 671 U/L (38-126); ASPARTATE AMINO TRANSFERASE 616 U/L (14-36); BILIRUBIN,DIRECT 2.3 mg/dL (0.0-0.4); BILIRUBIN,TOTAL 2.4 mg/dL (0.2-1.3); BLOOD UREA NITROGEN 51 mg/dL (7-20); CALCIUM 9.3 mg/dL (8.4-10.2); GLUCOSE 95 mg/dL (75-110); LIPASE 1112.6 U/L (23-300); TOTAL PROTEIN 8.3 g/dL (6.3-8.2)
[2018-02-05 10:59] LABS: ANION GAP 19 (5-19); CARBON DIOXIDE 24 mmol/L (22-30); CHLORIDE 99 mmol/L (98-107)
[2018-02-05 11:05] LABS: SODIUM 141.8 mmol/L (137-145)
[2018-02-05 11:07] LABS: POTASSIUM 2.9 mmol/L (3.6-5.0)
[2018-02-05 11:09] LABS: TROPONIN I 0.058 ng/mL
[2018-02-05] MEDS ORDERED: POTASSIUM CHLORIDE 10 MEQ CAPSULE.ER PO ONE (12:44)
--- NOTE | 2018-02-05 12:56 | ER Document Report ---
ED GI/ - General Chief Complaint: Upper Abdominal Pain Stated Complaint: WEAKNESS Time Seen by Provider: 02/05/18 09:45 Mode of Arrival: Ambulatory Information source: Patient Notes: Patient is a 63-year-old female with schizophrenia, high blood pressure, high cholesterol, history of stroke who presents to the ER today for nausea, 2 episodes of vomiting and abdominal pain times many months. Patient is a very difficult historian as she is combative from the second anyone enters the room. Son is in the room but unable to assist us in getting any information out of her. Patient only gives certain information at certain times and will not give a complete story. Patient does know her name, where she is and the date. TRAVEL OUTSIDE OF THE [place] IN LAST 30 DAYS: No - Related Data Allergies/Adverse Reactions: fluphenazine [Fluphenazine] Allergy (Severe, Verified 02/05/18 09:49) haloperidol [From Haldol] Allergy (Unknown, Verified 02/05/18 09:49) haloperidol lactate [From Haldol] Allergy (Unknown, Verified 02/05/18 09:49) lisinopril [Lisinopril] Allergy (Unknown, Verified 02/05/18 09:49) Past Medical History - General Information source: Patient - Social History Smoking Status: Never Smoker Chew tobacco use (# tins/day): No Frequency of alcohol use: None Drug Abuse: None Family History: Reviewed & Not Pertinent, Other - Patient is not answering questions appropriately. denies: None, Arthritis, CAD, COPD, CVA, DM, Hyperlipidemia, Hypertension, Malignancy, Thyroid Disfunction Patient has suicidal ideation: No Patient has homicidal ideation: No - Past Medical History Cardiac Medical History: Reports: Hx Hypercholesterolemia, Hx Hypertension Denies: Hx Heart Murmur Pulmonary Medical History: Reports: Hx Respiratory Failure Denies: Hx Tuberculosis Neurological Medical History: Reports: Hx Cerebrovascular Accident, Hx Seizures Renal/ Medical History: Denies: Hx Peritoneal Dialysis Psychiatric Medical History: Reports: Hx Schizophrenia Denies: Hx Depression Past Surgical History: Reports: Hx Tubal Ligation - Immunizations Hx Diphtheria, Pertussis, Tetanus Vaccination: Yes Review of Systems - Review of Systems Constitutional: No symptoms reported EENT: No symptoms reported Cardiovascular: No symptoms reported Respiratory: No symptoms reported Gastrointestinal: See HPI Genitourinary: No symptoms reported Female Genitourinary: No symptoms reported Musculoskeletal: No symptoms reported Skin: No symptoms reported Hematologic/Lymphatic: No symptoms reported Neurological/Psychological: See HPI Physical Exam - Vital signs Vitals: Temp Pulse Resp BP Pulse Ox 98.6 F 69 18 107/63 96 02/05/18 09:35 02/05/18 09:35 02/05/18 09:35 02/05/18 09:35 02/05/18 09:35 - Notes Notes: PHYSICAL EXAMINATION: GENERAL: angry, combative, but otherwise well appearing, in no acute distress. HEAD: Atraumatic, normocephalic. EYES: Pupils equal round and reactive to light, extraocular movements intact, sclera anicteric, conjunctiva are normal. ENT: ear canals without erythema or foreign body, TMs pearly holt with good bony landmarks, nares patent, oropharynx clear without exudates. Moist mucous membranes. NECK: Normal range of motion, supple without lymphadenopathy LUNGS: CTAB and equal. No wheezes rales or rhonchi. HEART: Regular rate and rhythm without murmurs ABDOMEN: Soft, mild ruq, luq, left sided, suprapubic tenderness. No guarding, no rebound BACK: no vertebral tenderness, normal ROM GI/: no CVA tenderness EXTREMITIES: Normal range of motion, no pitting edema. No cyanosis. NEUROLOGICAL: alert and oriented x 3, Cranial nerves grossly intact. Normal sensory/motor exams. PSYCH: angry, combative, difficult SKIN: Warm, Dry, normal turgor, no rashes or lesions noted Course - Re-evaluation Re-evalutation: 02/05/18 15:00 pt's liver enzymes are very elevated, she is in kidney failure with a creatinine of 5.77 compared to October when she had a normal creatinine. Patient has a lipase of 1100. Patient's pain on abdominal exam is very vague and she actually does not even wince when I press on her abdomen but tells me that it hurts. Patient has been incredibly difficult during this visit but she is alert and oriented and I cannot IVC her because there is no criteria at this time. I did tell patient that her labs are very poor today and she is in acute kidney failure with elevated liver enzymes and elevated pancreas enzymes, I am very worried about her today. I did beg her to stay. Son can not convince her either. CT was negative for any acute pathology although was not done with any IV contrast due to her creatinine. pt left AMA, was alert and oriented and I could not convince her to stay. 02/06/18 08:25 - Vital Signs Vital signs: Temp Pulse Resp BP Pulse Ox 98.6 F 69 13 132/70 H 98 02/05/18 09:35 02/05/18 09:35 02/05/18 14:09 02/05/18 14:09 02/05/18 14:09 - Laboratory Result Diagrams: 02/05/18 10:06 02/05/18 10:06 Laboratory results interpreted by me: 02/05/18 02/05/18 10:06 10:06 MCV 79 L RDW 16.1 H Potassium 2.9 L* BUN 51 H Creatinine 5.77 H Est GFR ( Amer) 9 L Est GFR (Non-Af Amer) 7 L Total Bilirubin 2.4 H Direct Bilirubin 2.3 H AST 616 H ALT 368 H Alkaline Phosphatase 671 H Total Protein 8.3 H Lipase 1112.6 H Discharge - Discharge Clinical Impression: Elevated liver enzymes, Elevated lipase, Nausea Acute kidney failure Qualifiers: Acute renal failure type: unspecified Qualified Code(s): N17.9 - Acute kidney failure, unspecified Abdominal pain Qualifiers: Abdominal location: generalized Qualified Code(s): R10.84 - Generalized abdominal pain Condition: Stable Disposition: AGAINST MEDICAL ADVICE Referrals: GUSTAVO STOLL MD [Primary Care Provider] - Follow up as needed
--- NOTE | 2018-02-05 14:19 | RADIOLOGY REPORT (SQ) ---
EXAM DESCRIPTION: CT ABD/PELVIS NO ORAL OR IV COMPLETED DATE/TIME: 02/05/2018 2:00 pm REASON FOR STUDY: abd pain, elevated lipase, liver enzymes COMPARISON: None. TECHNIQUE: CT scan of the abdomen and pelvis performed without intravenous or oral contrast. Images reviewed with lung, soft tissue, and bone windows. Reconstructed coronal and sagittal MPR images revi ewed. All images stored on PACS. All CT scanners at this facility use dose modulation, iterative reconstruction, and/or weight based d osing when appropriate to reduce radiation dose to as low as reasonably achievable (ALARA). [facility]: Dose Right [facility]: CareDose [facility]: Dose Right [facility]: Teradose 4D [facility]: [employer] RADIATION DOSE: CT Rad equipment meets quality standard of care and radiation dose reduction techniq ues were employed. CTDIvol: 4.9 mGy. DLP: 281 mGy-cm.mGy. LIMITATIONS: None. FINDINGS: LOWER CHEST: Minimal scarring posteriorly right base NON-CONTRASTED LIVER, SPLEEN, ADRENALS: Evaluation limited by lack of IV contrast. No identified sign ificant masses. PANCREAS: No masses. No peripancreatic inflammatory changes. GALLBLADDER: No identified stones by CT criteria. No inflammatory changes to suggest cholecystitis. RIGHT KIDNEY AND URETER: Will No significant calcifications. No hydronephrosis or hydroureter. LEFT KIDNEY AND URETER: No suspicious masses. Assessment limited by lack of IV contrast. No signifi cant calcifications. No hydronephrosis or hydroureter. AORTA AND RETROPERITONEUM: No aneurysm. No retroperitoneal masses or adenopathy. BOWEL AND PERITONEAL CAVITY: No obvious masses or inflammatory changes. No free fluid. APPENDIX: Normal. PELVIS, BLADDER, AND ABDOMINAL WALL:Partial calcified uterine fibroids BONES: No significant findings. OTHER: Few small scattered calcific densities along the heads of the ureter is a probably represent p hleboliths rather than ureteral calculi. IMPRESSION: No acute or significant findings related to the patient's clinical information. See abo ve discussion. COMMENT: Quality ID # [id number]: Final reports with documentation of one or more dose reduction techniques (e.g., Automated exposure control, adjustment of the mA and/or kV according to patient size, use of iterative reconstruction technique) TECHNICAL DOCUMENTATION: JOB ID: [id number] [employer]- All Rights Reserved Reading location - IP/workstation name: [email or web address]
[2018-02-05 14:33] VITALS: BP 132/70
--- NOTE | 2018-02-05 22:55 | EKG REPORT ---
SEVERITY:- ABNORMAL ECG - SINUS RHYTHM NONSPECIFIC T ABNORMALITIES, LATERAL LEADS VS LVH RELATED : Confirmed by: Fredo Olea 05-Feb-2018 22:54:05
[2018-02-06 07:42] LABS: HEPATITIS A AB IGM Negative (Negative); HEPATITIS B CORE AB IGM Negative (Negative); HEPATITS B SURFACE ANTIGEN Negative (Negative)
[2018-02-06 09:19] LABS: HEPATITIS C VIRUS ANTIBODY <0.1 s/co ratio (0.0-0.9)
== END 2018-02-05 15:03 | disposition left against medical advice (07) ==
LOC: ER 09:31
DX: N17.9 Acute kidney failure, unspecified (principal); R10.84 Generalized abdominal pain; I10 Essential (primary) hypertension; R74.8 Abnormal levels of other serum enzymes; R11.2 Nausea with vomiting, unspecified; Z88.8 Allergy status to other drugs, medicaments and biological substances
CPT/HCPCS: 36415; 71046; 74176; 80053; 80074; 83690; 83880; 84484; 85025; 93005; 93010; 99285

== ENCOUNTER 2018-02-08 06:18 | Emergency (ER) | payer MEDICAID ==
--- NOTE | 2018-02-08 07:08 | ER Document Report ---
ED Respiratory Problem - General Chief Complaint: Shortness Of Breath Stated Complaint: BEHAVORIAL ISSUES Time Seen by Provider: 02/08/18 06:57 TRAVEL OUTSIDE OF THE [place] IN LAST 30 DAYS: No - Related Data Allergies/Adverse Reactions: fluphenazine [Fluphenazine] Allergy (Severe, Verified 02/05/18 09:49) haloperidol [From Haldol] Allergy (Unknown, Verified 02/05/18 09:49) haloperidol lactate [From Haldol] Allergy (Unknown, Verified 02/05/18 09:49) lisinopril [Lisinopril] Allergy (Unknown, Verified 02/05/18 09:49) Past Medical History - Social History Smoking Status: Unknown if Ever Smoked Family History: Reviewed & Not Pertinent, Other - Patient is not answering questions appropriately. denies: None, Arthritis, CAD, COPD, CVA, DM, Hyperlipidemia, Hypertension, Malignancy, Thyroid Disfunction Patient has suicidal ideation: No Patient has homicidal ideation: No - Past Medical History Cardiac Medical History: Reports: Hx Hypercholesterolemia, Hx Hypertension Denies: Hx Heart Murmur Pulmonary Medical History: Reports: Hx Respiratory Failure Denies: Hx Tuberculosis Neurological Medical History: Reports: Hx Cerebrovascular Accident, Hx Seizures Renal/ Medical History: Denies: Hx Peritoneal Dialysis Psychiatric Medical History: Reports: Hx Schizophrenia Denies: Hx Depression Past Surgical History: Reports: Hx Tubal Ligation - Immunizations Hx Diphtheria, Pertussis, Tetanus Vaccination: Yes Physical Exam - Vital signs Vitals: Pulse Ox 98 02/08/18 06:26 Course - Vital Signs Vital signs: Temp Pulse Resp BP Pulse Ox 97.8 F 15 145/78 H 99 02/08/18 06:29 02/08/18 06:29 02/08/18 06:29 02/08/18 06:29 Discharge - Discharge Referrals: GUSTAVO STOLL MD [Primary Care Provider] - Follow up as needed
[2018-02-08 07:28] VITALS: BP 150/87
--- NOTE | 2018-02-08 07:29 | ER Document Report ---
ED General - General Chief Complaint: Shortness Of Breath Stated Complaint: BEHAVORIAL ISSUES Time Seen by Provider: 02/08/18 06:57 Mode of Arrival: Medic Information source: Patient Notes: 63-year-old female that return to the emergency room because of nausea and shortness of breath and abdominal pain. She left AGAINST MEDICAL ADVICE February 05. With a acute onset of renal failure and elevated liver enzymes lipase and bilirubin. She has not felt well since then and feels very weak. With generalized abdominal pain. Feels like all her strength is gone. She also feels like she has decreased hearing in her right ear. History of schizophrenia and CVA. TRAVEL OUTSIDE OF THE [place] IN LAST 30 DAYS: No - Related Data Allergies/Adverse Reactions: fluphenazine [Fluphenazine] Allergy (Severe, Verified 02/05/18 09:49) haloperidol [From Haldol] Allergy (Unknown, Verified 02/05/18 09:49) haloperidol lactate [From Haldol] Allergy (Unknown, Verified 02/05/18 09:49) lisinopril [Lisinopril] Allergy (Unknown, Verified 02/05/18 09:49) Past Medical History - General Information source: Patient, Relative - Son - Social History Smoking Status: Former Smoker Frequency of alcohol use: None Drug Abuse: None Lives with: Other - Son Family History: Reviewed & Not Pertinent, Other - Patient is not answering questions appropriately Patient has suicidal ideation: No Patient has homicidal ideation: No - Past Medical History Cardiac Medical History: Reports: Hx Hypercholesterolemia, Hx Hypertension Pulmonary Medical History: Reports: Hx Respiratory Failure Neurological Medical History: Reports: Hx Cerebrovascular Accident, Hx Seizures Renal/ Medical History: Denies: Hx Peritoneal Dialysis Psychiatric Medical History: Reports: Hx Schizophrenia Denies: Hx Depression Past Surgical History: Reports: Hx Tubal Ligation - Immunizations Hx Diphtheria, Pertussis, Tetanus Vaccination: Yes Review of Systems - Review of Systems Constitutional: See HPI EENT: No symptoms reported Cardiovascular: No symptoms reported Respiratory: See HPI Gastrointestinal: No symptoms reported Genitourinary: No symptoms reported Female Genitourinary: No symptoms reported Musculoskeletal: No symptoms reported Skin: No symptoms reported Hematologic/Lymphatic: No symptoms reported Neurological/Psychological: No symptoms reported Physical Exam - Vital signs Vitals: Pulse Ox 98 02/08/18 06:26 Interpretation: Normal - General General appearance: Appears well, Alert In distress: None - HEENT Head: Normocephalic, Atraumatic Eyes: Normal Conjunctiva: No: Icteric Pupils: PERRL - Respiratory Respiratory status: No respiratory distress Chest status: Nontender Breath sounds: Normal Chest palpation: Normal - Cardiovascular Rhythm: Regular Heart sounds: Normal auscultation Murmur: No - Abdominal Inspection: Normal Distension: No distension Bowel sounds: Normal Tenderness: Tender - Minimally generalized tender but she is tender in the right upper quadrant and epigastrium. No: Justice's sign, Guarding, Rebound Organomegaly: No organomegaly. No: Hepatomegaly, Splenomegaly - Back Back: Normal, Nontender. No: CVA tenderness - Extremities General upper extremity: Normal inspection, Nontender, Normal color, Normal ROM , Normal temperature General lower extremity: Normal inspection, Nontender, Normal color, Normal ROM , Normal temperature, Normal weight bearing. No: Joanna's sign - Neurological Neuro grossly intact: Yes Cognition: Normal Orientation: AAOx4 [place] Coma Scale Eye Opening: Spontaneous [place] Coma Scale Verbal: Oriented [place] Coma Scale Motor: Obeys Commands [place] Coma Scale Total: 15 Speech: Normal Motor strength normal: LUE, RUE, LLE, RLE Sensory: Normal - Psychological Associated symptoms: Normal affect, Normal mood - Skin Skin Temperature: Warm Skin Moisture: Dry Skin Color: Normal Skin irregularity: other - Excoriated scratches on her abdomen she states her skin is itchy Location of irregularity: Abdomen Course - Re-evaluation Re-evalutation: 02/08/18 09:52 Patient's creatinine is now up to 8.3 with worsening acute renal failure. Her BUN is 74. The potassium is 3.6. Her liver enzymes bilirubins are still elevated. Not quite as high as they were on the . The abdominal ultrasound shows normal duct with. I contacted the hospitalist here and since we do not have nephrology on-call he wants me to transfer the patient. Urinalysis showed 1+ bacteria I will hang Rocephin 1 g IV pending the urine culture. spec gravity is 1.010. Her CO2 is 20 so I suspect some dehydration and will give a small fluid bolus. 02/08/18 09:53 Patient wants to be transferred to [facility] so I have called them first to the hospitalist to see if they have nephrology and gastroenterology they can also consult at this time. If the patient cannot be transferred to [facility] her second choices da. Her son Mike is in the room as well and agrees with that. 02/08/18 10:55 Dr. Rudd of the hospitalist at [facility] states that she will not accept the patient because she would not do anything that we could not do here. She stated that the patient needs a couple liters of fluid and to repeat the BUN and creatinine after I gave her all the lab work and patient status. I called Dr. berumen first back and he continues to state that the patient needs a tank pumper and he will not accept the patient here either. 02/08/18 11:05 dr prescott did come to see me and look at the patient to make sure she can't stay here. He and dr. pizarro agree that she needs tertiary care. 02/08/18 11:07 Call to [facility] for referral for hepatorenal failure, pancreatitis. Dr. Pizarro wants normal saline at 115 hour maintenance fluid pending the transfer. 02/08/18 11:37 Dr. Doty hospitalist at [facility] will accept the patient for admission to intermediate bed. She wants her to get a total of 1000 mL liter bolus and then keep her on 150 mg liters per hour. She wants a Mcgregor catheter inserted. She also wants to see if we can get a renal ultrasound. 02/08/18 11:58 Patient is willing to be admitted she ate some soup prior to the n.p.o. order because she was hungry. She agrees to having a Mcgregor catheter. The IV fluid is going in the Rocephin is hanging. 02/08/18 14:37 The accepting physician is [id number], dr. Doty was the surgeon's assistant hostpitalist and assigned to Dr. Villanueva. 02/08/18 14:43 Transport is here for the patient and I have spoken with her she is safe for transport vital signs are stable - Vital Signs Vital signs: Temp Pulse Resp BP Pulse Ox 97.8 F 17 150/87 H 99 02/08/18 06:29 02/08/18 13:31 02/08/18 13:31 02/08/18 13:31 - Laboratory Result Diagrams: 02/08/18 09:00 02/08/18 09:00 Laboratory results interpreted by me: 02/08/18 02/08/18 02/08/18 09:00 09:00 09:00 Hct 35.2 L MCV 79 L RDW 16.3 H Seg Neutrophils % 79.2 H Lymphocytes % 9.7 L APTT 39.2 H Carbon Dioxide 20 L Anion Gap 21 H BUN 74 H Creatinine 8.30 H Est GFR ( Amer) 6 L Est GFR (Non-Af Amer) 5 L Total Bilirubin 2.1 H Direct Bilirubin 2.0 H AST 384 H ALT 239 H Alkaline Phosphatase 629 H Total Protein 8.4 H Lipase 1130.4 H Urine Protein Urine Blood Acetaminophen 02/08/18 02/08/18 09:00 09:05 Hct MCV RDW Seg Neutrophils % Lymphocytes % APTT Carbon Dioxide Anion Gap BUN Creatinine Est GFR ( Amer) Est GFR (Non-Af Amer) Total Bilirubin Direct Bilirubin AST ALT Alkaline Phosphatase Total Protein Lipase Urine Protein 100 H Urine Blood SMALL H Acetaminophen < 10 L Discharge - Discharge Clinical Impression: Nausea, Elevated liver enzymes, Possible urinary tract infection, Elevated lipase, schizophrenia Acute renal failure Qualifiers: Acute renal failure type: unspecified Qualified Code(s): N17.9 - Acute kidney failure, unspecified Abdominal pain Qualifiers: Abdominal location: generalized Qualified Code(s): R10.84 - Generalized abdominal pain Pancreatitis Qualifiers: Chronicity: acute Pancreatitis type: unspecified pancreatitis type Acute pancreatitis complication: unspecified Qualified Code(s): K85.90 - Acute pancreatitis without necrosis or infection, unspecified Condition: Stable Disposition: Tertiary-Other Referrals: GUSTAVO STOLL MD [Primary Care Provider] - Follow up as needed
--- NOTE | 2018-02-08 09:04 | RADIOLOGY REPORT (SQ) ---
EXAM DESCRIPTION: U/S ABDOMEN LIMITED W/O DOP COMPLETED DATE/TIME: 02/08/2018 8:50 am REASON FOR STUDY: elevated liver enzymes COMPARISON: None. TECHNIQUE: Dynamic and static grayscale images acquired of the abdomen and recorded on PACS. Additio nal selected color Doppler and spectral images recorded. LIMITATIONS: Technically poor study secondary to patient body habitus and overlying bowel gas. FINDINGS: PANCREAS: Poor visualization with no gross abnormality. LIVER: No definite masses. Suggestion of coarse echotexture. LIVER VASCULATURE: Normal directional flow of the main portal vein. GALLBLADDER: Poor visualization due to overlying bowel gas with no definite stones or mass lesions. Normal gallbladder wall thickness. No pericholecystic fluid present. ULTRASOUND-DETECTED CHANG'S SIGN: Negative. INTRAHEPATIC DUCTS AND COMMON DUCT: CBD and intrahepatic ducts normal caliber. No filling defects. INFERIOR VENA CAVA: Normal flow. AORTA: No aneurysm. RIGHT KIDNEY: Normal size and echogenicity. There is a 3.9 cm simple appearing cyst in the superior pole. PERITONEAL AND RIGHT PLEURAL SPACE: No ascites or effusions. OTHER: No other significant findings. IMPRESSION: Limited exam secondary to patient body habitus and overlying bowel gas with no gross acu te abnormalities. Suggestion of possible hepatic steatosis. TECHNICAL DOCUMENTATION: JOB ID: [id number] [employer]- All Rights Reserved Reading location - IP/workstation name: [email or web address]
[2018-02-08 09:33] LABS: ALANINE AMINOTRANSFERASE 239 U/L (9-52); ALBUMIN 4.2 g/dL (3.5-5.0); ALKALINE PHOSPHATASE 629 U/L (38-126); ASPARTATE AMINO TRANSFERASE 384 U/L (14-36); BILIRUBIN,TOTAL 2.1 mg/dL (0.2-1.3); BLOOD UREA NITROGEN 74 mg/dL (7-20); CALCIUM 9.4 mg/dL (8.4-10.2); CHLORIDE 100 mmol/L (98-107); GLUCOSE 76 mg/dL (75-110); LIPASE 1130.4 U/L (23-300); POTASSIUM 3.7 mmol/L (3.6-5.0); SODIUM 140.9 mmol/L (137-145); TOTAL PROTEIN 8.4 g/dL (6.3-8.2)
[2018-02-08 09:38] LABS: CARBON DIOXIDE 20 mmol/L (22-30)
[2018-02-08 09:40] LABS: PROTHROMBIN TIME 12.6 SEC (11.4-15.4)
[2018-02-08 09:41] LABS: ANION GAP 21 (5-19); PARTIAL THROMBOPLASTIN TIME 39.2 SEC (23.5-35.8)
[2018-02-08 09:43] LABS: AMORPHOUS SEDIMENT,URINE TRACE /HPF; APPEARANCE,URINE SLIGHTLY-CLOUDY; BILIRUBIN,URINE NEGATIVE (NEGATIVE); COLOR,URINE YELLOW; GLUCOSE, URINE NEGATIVE (NEGATIVE); KETONES,URINE NEGATIVE (NEGATIVE); LEUKOCYTE ESTERASE,URINE NEGATIVE (NEGATIVE); NITRITE,URINE NEGATIVE (NEGATIVE); PROTEIN,URINE 100 mg/dL (NEGATIVE); URINE SPECIFIC GRAVITY 1.012; UROBILINOGEN,URINE NEGATIVE mg/dL (<2.0)
[2018-02-08 09:44] LABS: ABSOLUTE LYMPHOCYTES (AUTO) 0.6 10^3/uL (0.5-4.7); ABSOLUTE MONOCYTES (AUTO) 0.6 10^3/uL (0.1-1.4); ABSOLUTE NEUT (AUTO) 4.5 10^3/uL (1.7-8.2); BASOPHILS % (AUTO) 0.9 % (0-2); EOSINOPHILS % (AUTO) 0.5 % (0-6); HEMATOCRIT 35.2 % (36.0-47.0); HEMOGLOBIN 12.1 g/dL (12.0-15.5); LYMPHOCYTES % (AUTO) 9.7 % (13-45); MEAN CORPUSCULAR HEMOGLOBIN 27.2 pg (27.0-33.4); MEAN CORPUSCULAR HGB CONC 34.3 g/dL (32.0-36.0); MEAN CORPUSCULAR VOLUME 79 fl (80-97); MONOCYTES % (AUTO) 9.7 % (3-13); PLATELET COUNT 187 10^3/uL (150-450); RED BLOOD COUNT 4.42 10^6/uL (3.72-5.28); RED CELL DISTRIBUTION WIDTH 16.3 % (11.5-14.0); SEGMENTED NEUTROPHILS % (AUTO) 79.2 % (42-78); TOTAL CELLS COUNTED % (AUTO) 100 %; WHITE BLOOD COUNT 5.7 10^3/uL (4.0-10.5)
[2018-02-08] MEDS ORDERED: CEFTRIAXONE 1 GM/D5W RTU 50 ML IV ONE (09:49)
[2018-02-08] MEDS ORDERED: NORMAL SALINE 1000 ML 1,000 ML IV ONE ×3 (09:55→10:59)
--- NOTE | 2018-02-08 09:55 | EKG REPORT ---
SEVERITY:- NORMAL ECG - SINUS RHYTHM : Confirmed by: Fredo Olea 08-Feb-2018 09:54:29
--- NOTE | 2018-02-08 11:04 | RADIOLOGY REPORT (SQ) ---
EXAM DESCRIPTION: CHEST 2 VIEWS COMPLETED DATE/TIME: 02/08/2018 10:47 am REASON FOR STUDY: sob COMPARISON: 02/05/2018 EXAM PARAMETERS: NUMBER OF VIEWS: two views TECHNIQUE: Digital Frontal and Lateral radiographic views of the chest acquired. RADIATION DOSE: NA LIMITATIONS: none FINDINGS: LUNGS AND PLEURA: No opacities, masses or pneumothorax. No pleural effusion. MEDIASTINUM AND HILAR STRUCTURES: No masses or contour abnormalities. HEART AND VASCULAR STRUCTURES: Heart normal size. No evidence for failure. BONES: No acute findings. HARDWARE: None in the chest. OTHER: No other significant finding. IMPRESSION: NO ACUTE RADIOGRAPHIC FINDING IN THE CHEST. TECHNICAL DOCUMENTATION: JOB ID: [id number] [employer]- All Rights Reserved Reading location - IP/workstation name: [email or web address]
--- NOTE | 2018-02-08 11:13 | RADIOLOGY REPORT (SQ) ---
EXAM DESCRIPTION: ABDOMEN 2 VIEWS COMPLETED DATE/TIME: 02/08/2018 10:47 am REASON FOR STUDY: abd pain, sob COMPARISON: None. NUMBER OF VIEWS: Two views. TECHNIQUE: Supine and erect/decubitus radiographic images of the abdomen acquired. LIMITATIONS: None. FINDINGS: FREE AIR: None. No abnormal gas collections. LUNG BASES: Clear. BOWEL GAS PATTERN: Nonobstructive pattern. No dilated loops or air fluid levels. CALCIFICATIONS: There are multiple calcifications in the pelvis, likely representing calcified uterin e fibroids. SOFT TISSUES: No gross mass or suggestion of organomegaly. HARDWARE: None in the abdomen. BONES: Degenerative change in the lower lumbar spine. OTHER: No other significant finding. IMPRESSION: 1. Nonobstructive bowel gas pattern. No evidence of free intra-abdominal air. 2. Calcified masses in the pelvis, likely representing calcified uterus fibroids. Recommend clinica l correlation. TECHNICAL DOCUMENTATION: JOB ID: [id number] [employer]- All Rights Reserved Reading location - IP/workstation name: [email or web address]
[2018-02-08] MEDS ORDERED: CEFTRIAXONE SODIUM 1,000 MG in DEXTROSE 5%-WATER 50 ML IV ONE (11:30)
[2018-02-08 11:37] LABS: URINE AMPHETAMINES SCREEN NEGATIVE; URINE BARBITURATES SCREEN NEGATIVE; URINE BENZODIAZEPINES SCREEN NEGATIVE; URINE COCAINE SCREEN NEGATIVE; URINE MARIJUANA (THC) SCREEN NEGATIVE; URINE METHADONE SCREEN NEGATIVE; URINE PHENCYCLIDINE SCREEN NEGATIVE
[2018-02-08 11:38] LABS: ACETAMINOPHEN < 10 ug/mL (10-30); ALCOHOL < 10 mg/dL (NONE DETECTED)
== END 2018-02-08 15:07 | disposition short-term general hospital (02) ==
LOC: ER 06:18
DX: K85.90 Acute pancreatitis without necrosis or infection, unspecified (principal); N17.9 Acute kidney failure, unspecified; R74.8 Abnormal levels of other serum enzymes; F20.9 Schizophrenia, unspecified; S30.811A Abrasion of abdominal wall, initial encounter; X58.XXXA Exposure to other specified factors, initial encounter; L29.9 Pruritus, unspecified; R10.84 Generalized abdominal pain; R11.0 Nausea; R06.02 Shortness of breath; R53.1 Weakness; I10 Essential (primary) hypertension; Z86.73 Personal history of transient ischemic attack (TIA), and cerebral infarction without residual deficits; Z88.8 Allergy status to other drugs, medicaments and biological substances; Z87.891 Personal history of nicotine dependence
CPT/HCPCS: 93005; 99285; 96361; 51701; 51702; 96365; 36415; 87086; 80307 ×3; 83690; 84478; 85025; 85610; 85730; 80053; 81001; 74019; 71046; 76705; 93010; J0696; J7030

== ENCOUNTER → 2018-04-15 | Outpatient (CLI) | payer MEDICAID ==
[2018-04-15 10:21] LABS: ABSOLUTE BASOPHILS # (AUTO) 0.1 10^3/uL (0.0-0.2); ABSOLUTE EOSINOPHILS # (AUTO) 0.1 10^3/uL (0.0-0.6); ABSOLUTE LYMPHOCYTES (AUTO) 1.1 10^3/uL (0.5-4.7); ABSOLUTE MONOCYTES (AUTO) 0.2 10^3/uL (0.1-1.4); ABSOLUTE NEUT (AUTO) 1.6 10^3/uL (1.7-8.2); BASOPHILS % (AUTO) 2.3 % (0-2); EOSINOPHILS % (AUTO) 3.1 % (0-6); HEMOGLOBIN 11.5 g/dL (12.0-15.5); LYMPHOCYTES % (AUTO) 34.3 % (13-45); MEAN CORPUSCULAR HEMOGLOBIN 28.7 pg (27.0-33.4); MEAN CORPUSCULAR HGB CONC 33.9 g/dL (32.0-36.0); MEAN CORPUSCULAR VOLUME 85 fl (80-97); MONOCYTES % (AUTO) 7.5 % (3-13); PLATELET COUNT 208 10^3/uL (150-450); RED BLOOD COUNT 4.02 10^6/uL (3.72-5.28); RED CELL DISTRIBUTION WIDTH 16.4 % (11.5-14.0); SEGMENTED NEUTROPHILS % (AUTO) 52.8 % (42-78); TOTAL CELLS COUNTED % (AUTO) 100 %; WHITE BLOOD COUNT 3.1 10^3/uL (4.0-10.5)
[2018-04-15 10:54] LABS: ALANINE AMINOTRANSFERASE 41 U/L (9-52); ALBUMIN 4.2 g/dL (3.5-5.0); ALKALINE PHOSPHATASE 96 U/L (38-126); ANION GAP 11 (5-19); ASPARTATE AMINO TRANSFERASE 37 U/L (14-36); BILIRUBIN,DIRECT 0.4 mg/dL (0.0-0.4); BILIRUBIN,TOTAL 0.8 mg/dL (0.2-1.3); BLOOD UREA NITROGEN 18 mg/dL (7-20); CALCIUM 10.2 mg/dL (8.4-10.2); CARBON DIOXIDE 27 mmol/L (22-30); CHLORIDE 104 mmol/L (98-107); GLUCOSE 93 mg/dL (75-110); POTASSIUM 4.2 mmol/L (3.6-5.0); SODIUM 142.1 mmol/L (137-145); TOTAL PROTEIN 7.7 g/dL (6.3-8.2)
[2018-04-15 11:27] LABS: APPEARANCE,URINE SLIGHTLY-CLOUDY; BILIRUBIN,URINE NEGATIVE (NEGATIVE); COLOR,URINE YELLOW; GLUCOSE, URINE NEGATIVE (NEGATIVE); KETONES,URINE NEGATIVE (NEGATIVE); LEUKOCYTE ESTERASE,URINE TRACE (NEGATIVE); NITRITE,URINE NEGATIVE (NEGATIVE); PROTEIN,URINE NEGATIVE (NEGATIVE); URINE SPECIFIC GRAVITY 1.013; UROBILINOGEN,URINE NEGATIVE mg/dL (<2.0)
== END ==
LOC: OD 09:14
PROVIDERS: ATTEND Internal Medicine Nephrology
DX: I12.9 Hypertensive chronic kidney disease with stage 1 through stage 4 chronic kidney disease, or unspecified chronic kidney disease (principal); N18.2 Chronic kidney disease, stage 2 (mild); E11.22 Type 2 diabetes mellitus with diabetic chronic kidney disease
CPT/HCPCS: 36415; 80053; 81001; 83735; 85025

== ENCOUNTER 2018-06-13 03:48 | Inpatient (IN) | payer MEDICAID ==
--- NOTE | 2018-06-13 04:25 | ER Document Report ---
ED NIH Stroke Scale - NIH Stroke Scale *: 1. NIH scale should be completed with appropriate accompanying assessment tools. *: 2. The NIH should reflect what the patient is capable of doing and should not be coached by the clinician. 1a. Level of Consciousness: 0=Alert;keenly responsive -: 1=Drowsy -: 2=Obtunded -: 3=Coma/unresponsive or reflex to noxious stimuli. 1a. Responses: 0 1b. Orientation Questions: a. What month is it? -: b. How old are you? -: 0=Answers both questions correctly. -: 1=Answers one question correctly or patient is intubated or has orotracheal trauma. -: 2=Answers neither question correctly. 1b. Responses: 0 1c. Response to commands: a. Open and close eyes? -: b. Brand Attendant and release hand? -: Credit is given despite weakness. Demonstration of task is permitted. Substitute command if hands cannot be used. -: 0=Performs both tasks correctly -: 1=Performs one task correctly -: 2=Performs neither task correctly 1c. Responses: 0 2. Gaze: Establish eye contact and instruct patient to "Follow my finger" -: 0=Normal -: 1=Partial gaze palsy. Gaze is abnormal in one or both eyes, but where forced deviation or total gaze paresis is not present. -: 2=Forced deviation or total gaze paresis. 2. Responses: 0 3. Visual Myers: Sees fingers in all four quadrants. -: 0=No visual loss. -: 1=Partial hemianopsia. -: 2=Complete hemianopsia. -: 3=Bilateral hemianopsia (including Cortical blindness) 3. Responses: 0 4. Facial Movement: Instruct patient to: -: a. Show me your teeth -: b. Raise your eyebrows -: c. Close your eyes -: d. Smile -: 0=Normal symmetrical movement -: 1=Minor paralysis (flattened nasolabial fold, asymmetry on smiling). -: 2=Partial paralysis (total or near total paralysis of lower face). -: 3=Complete paralysis of upper and lower face 4. Responses: 0 5. Motor functions (left arm): Alternate sides and extend each arm with palms down (90 degrees if sitting or 45 degrees for supine). -: 0=No drift;limb holds for full 10 seconds. -: 1=Drift; limb holds but drifts down before full 10 seconds, but does not hit bed. -: 2=Some effort against gravity; limb cannot get to or maintain position. -: 3=No effort against gravity; limb falls. -: 4=No movement. -: UN=Amputation, joint fusion, explain in comments. 5. Responses (left arm): 2 5. Motor Functions (right arm): Alternate sides and extend each arm with palms down (90 degrees if sitting or 45 degrees for supine). -: 0=No drift;limb holds for full 10 seconds. -: 1=Drift; limb holds but drifts down before full 10 seconds, but does not hit bed. -: 2=Some effort against gravity; limb cannot get to or maintain position. -: 3=No effort against gravity; limb falls. -: 4=No movement. -: UN=Amputation, joint fusion, explain in comments. 5. Responses (right arm): 0 6. Motor Functions (left leg): With patient lying supine, alternate sides and extend each leg (30 degrees always while supine). -: 0=No drift, leg holds position for full 5 seconds -: 1=Drift; leg falls before full 5 seconds but does not hit bed. -: 2=Some effort against gravity, leg falls to bed but some effort against gravity. -: 3=No effort against gravity, leg falls to bed immediately. -: 4=No movement. -: UN=Amputation, joint fusion; explain in comments. 6. Responses (left leg): 2 6. Motor Functions (right leg): With patient lying supine, alternate sides and extend each leg (30 degrees always while supine). -: 0=No drift, leg holds position for full 5 seconds -: 1=Drift; leg falls before full 5 seconds but does not hit bed. -: 2=Some effort against gravity, leg falls to bed but some effort against gravity. -: 3=No effort against gravity, leg falls to bed immediately. -: 4=No movement. -: UN=Amputation, joint fusion; explain in comments. 6. Responses (right leg): 0 7. Limb Ataxia: With eyes open instruct patient to: -: a. "Touch your finger to your nose". -: b. "Touch your heel to your jha" -: 0=Absent -: 1=Present in one limb. -: 2=Present in two limbs. -: UN=Amputation or joint fusion; explain in comments. 7. Responses: 1 7. If ataxia present choose as appropriate: Left arm 8. Sensory: Test sensation using pinprick or noxious stimuli. Test as many body parts as possible. -: 0=Normal;no sensory loss -: 1=Mile to moderate sensory loss (patient feels pin prick but is less sharp on affected side). -: 2=Severe or total sensory loss. 8. Responses: 0 9. Best Language: Instruct patient to: -: a. "Describe what you see in this picture." -: b. "Name the items in this picture." -: c. "Read these sentences." -: 0=No aphasia, normal -: 1=Mild to moderate aphasia. -: 2=Severe aphasia -: 3=Mute, global aphasia, no usable speech or auditory comprehension. 9. Responses: 0 10. Articulation, Dysarthia: Instruct patient to: -: "Read these words" or "Repeat these words" -: 0=Normal -: 1=Mild to moderate; patient may slur some words but can be understood without difficulty. -: 2=Severe; patients speech so slurred as to be unintelligible in the absence of dysphasia. -: UN=Intubated or other physical barrier, explain in comments. 10. Responses: 0 11. Extinction or inattention: 0=No abnormality -: 1= Visual, tactile, auditory, spatial, or personal inattention or extinction to bilateral simulation in one or the sensory modalities. -: 2=Profound sofía-inattention or sofía-inattention to more than one modality; does not recognize own hand. 11. Responses: 0 Total Score: 5
--- NOTE | 2018-06-13 04:33 | ER Document Report ---
ED General - General Stated Complaint: STROKE LIKE SYMPTOMS Time Seen by Provider: 06/13/18 03:54 Notes: Patient is a 63-year-old female with previous history of stroke who presents with strokelike symptoms. Patient history of a stroke that was picked up on MRI that caused left-sided weakness. This occurred several months ago. She got resolution of her symptoms and has been doing well. Today around 5 PM she started noticed numbness and tingling into the left hand and leg and then had progressive weakness throughout the day. Tonight she went to use the bathroom and could no longer bear weight on her left leg and could not use the bathroom and therefore she came to the ER. No chest pain. No abdominal pain. No fevers. She says she was getting some slurred speech but that has since resolved. No headache. No right-sided weakness or numbness. No trauma. No other complaints at this time. Only blood thinning medication patient takes is aspirin. Patient says she has been taking her medications and has not missed any dosages. TRAVEL OUTSIDE OF THE [place] IN LAST 30 DAYS: No - Related Data Allergies/Adverse Reactions: fluphenazine [Fluphenazine] Allergy (Severe, Verified 02/05/18 09:49) haloperidol [From Haldol] Allergy (Unknown, Verified 02/05/18 09:49) haloperidol lactate [From Haldol] Allergy (Unknown, Verified 02/05/18 09:49) lisinopril [Lisinopril] Allergy (Unknown, Verified 02/05/18 09:49) Past Medical History - Social History Smoking Status: Unknown if Ever Smoked Frequency of alcohol use: None Drug Abuse: None Family History: Reviewed & Not Pertinent, Other - Patient is not answering questions appropriately - Past Medical History Cardiac Medical History: Reports: Hx Hypercholesterolemia, Hx Hypertension Denies: Hx Heart Murmur Pulmonary Medical History: Reports: Hx Respiratory Failure Denies: Hx Tuberculosis Neurological Medical History: Reports: Hx Cerebrovascular Accident, Hx Seizures Renal/ Medical History: Denies: Hx Peritoneal Dialysis Psychiatric Medical History: Reports: Hx Schizophrenia Denies: Hx Depression Past Surgical History: Reports: Hx Tubal Ligation - Immunizations Hx Diphtheria, Pertussis, Tetanus Vaccination: Yes Review of Systems - Review of Systems Notes: My Normal Review Basic REVIEW OF SYSTEMS: CONSTITUTIONAL : Denies fever, chills, or sweats. Denies recent illness. EENT: Denies eye, ear, throat, or mouth pain or symptoms. Denies nasal or sinus congestion. CARDIOVASCULAR: Denies chest pain. RESPIRATORY: Denies cough, cold, or chest congestion. Denies shortness of breath, difficulty breathing, or wheezing. GASTROINTESTINAL: Denies abdominal pain. Denies nausea, vomiting, or diarrhea. GENITOURINARY: Denies difficulty urinating, painful urination, burning, frequency, or blood in urine. MUSCULOSKELETAL: Denies neck or back pain or joint pain or swelling. SKIN: Denies rash or skin lesions. NEUROLOGICAL: Denies altered mental status or loss of consciousness. Denies headache. Weakness in left upper and left lower extremity. ALL OTHER SYSTEMS REVIEWED AND NEGATIVE. Physical Exam - Notes Notes: General Appearance: Well nourished, alert, cooperative, no acute distress, no obvious discomfort. Vitals: reviewed, See vital signs table. Head: no swelling or tenderness to the head Eyes: PERRL, EOMI, Conjuctiva clear Mouth: No decreasd moisture Lungs: No wheezing, No rales, No rhonci, No accessory muscle use, good air exchange bilaterally. Heart: Normal rate, Regular rythm, No murmur, no rub Abdomen: Normal BS, soft, No rigidity, No abdominal tenderness, No guarding, no rebound, no abdominal masses, no organomegaly Extremities: strength 5/5 in all extremities, good pulses in all extremities, no swelling or tenderness in the extremities, no edema. Skin: warm, dry, appropriate color, no rash Neuro: speech clear, oriented x 3, normal affect, responds appropriately to questions. Cranial nerves II through XII are intact. Distal sensation intact. Patient has obvious weakness of the left upper and left lower extremity. She is able to squeeze my hand with her left hand but the hand launderer strength is very much decreased. She is unable to lift her left arm much much against gravity on the left side. Right upper extremity has normal strength. She is unable to lift her left leg off the bed. She is able to plantar and dorsal flex the foot with some strength but is diminished in comparison to the right side. Not tested due to the patient's left leg weakness. Right lower extremity has normal strength. Course - Re-evaluation Re-evalutation: 06/13/18 04:34 Patient has signs and symptoms of a stroke. She is well outside the stroke window S her symptoms first on occurring around 5 PM yesterday. Thrombolytics are not an option at this time. Patient will be closely monitored while workup is being completed. 06/13/18 04:34 06/13/18 05:44 On reevaluation patient left arm strength is improving. It is not back to normal but is much improved compared to where it was before. She is now in the left arm off the bed but obviously does not have full strength still unable to keep the arm off the bed for more than about 5 seconds. Patient's left leg is unchanged. Speech remains normal. At this time will admit the patient for her stroke treatment. I will contact the hospitalist for consideration for admission. 06/13/18 06:[address] Mak who agrees to consult for evaluation for admission. Dictation of this chart was performed using voice recognition software; therefore, there may be some unintended grammatical errors. - Laboratory Result Diagrams: 06/13/18 04:15 06/13/18 04:15 Laboratory results interpreted by me: 06/13/18 06/13/18 06/13/18 04:15 04:15 05:38 APTT 45.1 H Potassium 3.5 L Est GFR (Non-Af Amer) 51 L Glucose 129 H Calcium 10.4 H AST 77 H ALT 57 H Alkaline Phosphatase 132 H Urine Protein 30 H Ur Leukocyte Esterase MODERATE H - EKG Interpretation by Me Additional EKG results interpreted by me: 06/13/18 06:23 EKGs reviewed and interpreted by me. EKG shows sinus rhythm with a rate of [address] segment elevation or depression. No ischemic T wave inversions. NE interval, QRS duration, QT intervals are within normal range. Old EKG for comparison is from February 08, 2018. Discharge - Discharge Clinical Impression: CVA (cerebral vascular accident) Qualifiers: CVA mechanism: unspecified Qualified Code(s): I63.9 - Cerebral infarction, unspecified Condition: Stable Disposition: ADMITTED INPATIENT Admitting Provider: Hospitalist Unit Admitted: IMCU Referrals: Jayde MITCHELL MD [Primary Care Provider] - Follow up as needed
[2018-06-13 04:34] LABS: ABSOLUTE BASOPHILS # (AUTO) 0.1 10^3/uL (0.0-0.2); ABSOLUTE EOSINOPHILS # (AUTO) 0.1 10^3/uL (0.0-0.6); ABSOLUTE LYMPHOCYTES (AUTO) 0.9 10^3/uL (0.5-4.7); ABSOLUTE MONOCYTES (AUTO) 0.4 10^3/uL (0.1-1.4); ABSOLUTE NEUT (AUTO) 2.7 10^3/uL (1.7-8.2); BASOPHILS % (AUTO) 1.3 % (0-2); EOSINOPHILS % (AUTO) 1.9 % (0-6); HEMATOCRIT 39.1 % (36.0-47.0); HEMOGLOBIN 13.2 g/dL (12.0-15.5); LYMPHOCYTES % (AUTO) 22.5 % (13-45); MEAN CORPUSCULAR HEMOGLOBIN 28.8 pg (27.0-33.4); MEAN CORPUSCULAR HGB CONC 33.8 g/dL (32.0-36.0); MEAN CORPUSCULAR VOLUME 85 fl (80-97); MONOCYTES % (AUTO) 8.7 % (3-13); PLATELET COUNT 200 10^3/uL (150-450); RED BLOOD COUNT 4.59 10^6/uL (3.72-5.28); RED CELL DISTRIBUTION WIDTH 13.6 % (11.5-14.0); SEGMENTED NEUTROPHILS % (AUTO) 65.6 % (42-78); TOTAL CELLS COUNTED % (AUTO) 100 %; WHITE BLOOD COUNT 4.1 10^3/uL (4.0-10.5)
[2018-06-13 04:37] LABS: INTERNATIONAL RATION (INR) 0.91; PROTHROMBIN TIME 12.7 SEC (11.4-15.4)
[2018-06-13 04:38] LABS: PARTIAL THROMBOPLASTIN TIME 45.1 SEC (23.5-35.8)
--- NOTE | 2018-06-13 04:46 | RADIOLOGY REPORT (SQ) ---
EXAM DESCRIPTION: CT HEAD WITHOUT IV CONTRAST COMPLETED DATE/TME: 06/13/2018 04:05 CLINICAL HISTORY: 63 years, Female, left sided weakness COMPARISON: 11/15/2017 TECHNIQUE: Axial CT images of the brain were obtained without contrast. Sagittal and coronal reformats were performed. DLP 1001 Images stored on PACS. All CT scanners at this facility use dose modulation, iterative reconstruction, and/or weight based dosing when appropriate to reduce radiation dose to as low as reasonably achievable (ALARA). [facility]: Dose Right [facility]: CareDose [facility]: Dose Right [facility]: Teradose 4D [facility]: MPOWER Mobile LIMITATIONS: None. FINDINGS: There is no acute infarct, hemorrhage, mass, edema, hydrocephalus, or extra-axial fluid collection. Again noted is a chronic right COMBINATION BUILDING INSPECTOR distribution infarct. There is diffuse cerebral atrophy with moderate to severe periventricular and deep white matter chronic microvascular changes. The paranasal sinuses and mastoid air cells are clear. There is no acute fracture IMPRESSION: No acute intracranial abnormality. No significant change compared to the prior exam TECHNICAL DOCUMENTATION: Quality ID # 436: Final reports with documentation of one or more dose reduction techniques (e.g., Automated exposure control, adjustment of the mA and/or kV according to patient size, use of iterative reconstruction technique) 2010 [employer]- All Rights Reserved
[2018-06-13 04:47] LABS: ALANINE AMINOTRANSFERASE 57 U/L (9-52); ALBUMIN 4.3 g/dL (3.5-5.0); ALKALINE PHOSPHATASE 132 U/L (38-126); ANION GAP 12 (5-19); ASPARTATE AMINO TRANSFERASE 77 U/L (14-36); BILIRUBIN,DIRECT 0.4 mg/dL (0.0-0.4); BILIRUBIN,TOTAL 0.9 mg/dL (0.2-1.3); BLOOD UREA NITROGEN 16 mg/dL (7-20); CALCIUM 10.4 mg/dL (8.4-10.2); CARBON DIOXIDE 27 mmol/L (22-30); CHLORIDE 105 mmol/L (98-107); GLUCOSE 129 mg/dL (75-110); POTASSIUM 3.5 mmol/L (3.6-5.0); SODIUM 144.2 mmol/L (137-145); TOTAL PROTEIN 8.1 g/dL (6.3-8.2)
[2018-06-13] MEDS ORDERED: ASPIRIN 325 MG TABLET PO ONE (05:45)
[2018-06-13 05:54] LABS: APPEARANCE,URINE CLOUDY; BILIRUBIN,URINE NEGATIVE (NEGATIVE); COLOR,URINE YELLOW; GLUCOSE, URINE NEGATIVE (NEGATIVE); KETONES,URINE NEGATIVE (NEGATIVE); LEUKOCYTE ESTERASE,URINE MODERATE (NEGATIVE); NITRITE,URINE NEGATIVE (NEGATIVE); PROTEIN,URINE 30 mg/dL (NEGATIVE); URINE SPECIFIC GRAVITY 1.009; UROBILINOGEN,URINE NEGATIVE mg/dL (<2.0)
[2018-06-13] MEDS ORDERED: MAGNESIUM HYDROXIDE SUSP 30 ML UDCUP PO PRN (06:18)
[2018-06-13] MEDS ORDERED: DEXTROSE 50%-WATER 25 GM/50 ML DISP.SYRIN IV PRN ×2 (06:18)
[2018-06-13] MEDS ORDERED: INSULIN LISPRO 100 UNIT/ML 3 ML VIAL SUBCUT PRN (06:18)
[2018-06-13] MEDS ORDERED: DEXTROSE 40% GEL 15 GM TUBE PO PRN ×2 (06:18)
[2018-06-13] MEDS ORDERED: ACETAMINOPHEN 325 MG TABLET PO PRN (06:18)
[2018-06-13] MEDS ORDERED: DOCUSATE SODIUM 100 MG CAPSULE PO PRN (06:18)
[2018-06-13] MEDS ORDERED: GLUCAGON,HUMAN RECOMB 1 MG INJ IM PRN (06:18)
--- NOTE | 2018-06-13 06:47 | PDOC H&P ---
History of Present Illness Admission Date/PCP: 06/13/18 06:23 Jayde MITCHELL MD Patient complains of: Left-sided weakness History of Present Illness: LEYDI THOMAS is a 63 year old female with a past medical history of schizophrenia and MRI verified CVA 8 years ago with full recovery left-sided weakness after physical therapy. She presents with left-sided weakness that began at 5 PM she went to bed but when awakened to use the bathroom was unable to walk prompting emergency room evaluation where she is found to have only 4 out of 5 strength in the left and right upper extremity. She denies palpitations, fevers, headache or recent change of medications. CT imaging is unremarkable she receives aspirin and referred to the hospitalist for admission Past Medical History Cardiac Medical History: Reports: Hyperlipidema, Hypertension Denies: Heart Murmur Pulmonary Medical History: Reports: Respiratory Failure Denies: Tuberculosis Neurological Medical History: Reports: Ischemic CVA, Seizures Psychiatric Medical History: Reports: Schizoaffective Disorder Denies: Depression Past Surgical History Past Surgical History: Reports: Tubal Ligation Social History Information Source: Patient Lives with: Family Smoking Status: Unknown if Ever Smoked Frequency of Alcohol Use: None Hx Recreational Drug Use: Yes Drugs: Marijuana Hx Prescription Drug Abuse: No - Advance Directive Resuscitation Status: Full Code Family History Family History: Other - Patient is not answering questions appropriately Parental Family History Reviewed: No Children Family History Reviewed: No Sibling(s) Family History Reviewed.: No Medication/Allergy Home Medications: Carvedilol [Coreg 25 mg Tablet] 2 tab PO DAILY 11/10/17 Clonidine HCl [Catapres 0.2 mg Tablet] 0.2 mg PO Q8 11/10/17 Hydralazine HCl 100 mg PO Q8 11/10/17 Hydrochlorothiazide [Hydrodiuril 25 mg Tablet] 25 mg PO QAM 11/10/17 Isosorbide Mononitrate [Imdur 30 mg Tablet.er] 30 mg PO DAILY 11/10/17 Levetiracetam [Keppra 500 mg Tablet] 500 mg PO Q12 11/10/17 Metformin HCl [Glucophage] 1,000 mg PO WBRKFST 11/10/17 Potassium Chloride [Klor-Con 10] 10 meq PO DAILY 11/10/17 Aspirin [Ecotrin 325 mg EC Tablet] 325 mg PO DAILY tabec 11/12/17 Atorvastatin Calcium [Lipitor 80 mg Tablet] 80 mg PO QHS 30 Days tablet Lorazepam [Ativan 0.5 mg Tablet] 0.5 mg PO Q4 PRN #10 tab 11/15/17 Allergies/Adverse Reactions: fluphenazine [Fluphenazine] Allergy (Severe, Verified 02/05/18 09:49) haloperidol [From Haldol] Allergy (Unknown, Verified 02/05/18 09:49) haloperidol lactate [From Haldol] Allergy (Unknown, Verified 02/05/18 09:49) lisinopril [Lisinopril] Allergy (Unknown, Verified 02/05/18 09:49) Physical Exam General appearance: PRESENT: cooperative, mild distress. ABSENT: hard of hearing Head exam: PRESENT: atraumatic, normocephalic Eye exam: PRESENT: conjunctiva pink, EOMI, PERRLA. ABSENT: scleral icterus Ear exam: PRESENT: normal external ear exam Mouth exam: PRESENT: moist, tongue midline Neck exam: ABSENT: carotid bruit, JVD, lymphadenopathy, thyromegaly Respiratory exam: PRESENT: clear to auscultation dennis. ABSENT: rales, rhonchi, wheezes Cardiovascular exam: PRESENT: RRR. ABSENT: diastolic murmur, rubs, systolic murmur Pulses: PRESENT: normal dorsalis pedis pul Vascular exam: PRESENT: normal capillary refill GI/Abdominal exam: PRESENT: normal bowel sounds, soft. ABSENT: distended, guarding, mass, organolmegaly, rebound, tenderness Rectal exam: PRESENT: deferred Extremities exam: PRESENT: other - 4 out of 5 strength in the upper and lower left extremity Musculoskeletal exam: PRESENT: other - 4 out of 5 strength in the left side Neurological exam: PRESENT: alert, awake, oriented to person, oriented to place , oriented to time, oriented to situation, CN II-XII grossly intact. ABSENT: motor sensory deficit Psychiatric exam: PRESENT: unusual affect Skin exam: PRESENT: dry, intact, warm. ABSENT: cyanosis, rash Results Impressions: Head CT 06/13/18 04:05 IMPRESSION: No acute intracranial abnormality. No significant change compared to the prior exam TECHNICAL DOCUMENTATION: Quality ID # 436: Final reports with documentation of one or more dose reduction techniques (e.g., Automated exposure control, adjustment of the mA and/or kV according to patient size, use of iterative reconstruction technique) 2010 [employer] [facility] [employer]- All Rights Reserved Assessment & Plan - Diagnosis (1) CVA (cerebral vascular accident) Qualifiers: CVA mechanism: unspecified Qualified Code(s): I63.9 - Cerebral infarction, unspecified Is this a current diagnosis for this admission?: Yes Plan: CVA care set, aspirin, Plavix, Lipitor and physical therapy ordered (2) Schizophrenia Is this a current diagnosis for this admission?: Yes Plan: Outpatient regiment (3) Diabetes mellitus type 2 in obese Is this a current diagnosis for this admission?: Yes Plan: Humalog sliding scale as needed - Time Time Spent: 30 to 50 Minutes - Inpatient Certification Medical Necessity: Need Close Monitoring Due to Risk of Patient Decompensation
--- NOTE | 2018-06-13 08:02 | EKG REPORT ---
SEVERITY:- NORMAL ECG - SINUS RHYTHM : Confirmed by: Abbi Mott MD 13-Jun-2018 08:01:36
[2018-06-13] MEDS ORDERED: CARVEDILOL PO SCH (10:00)
--- NOTE | 2018-06-13 10:55 | RADIOLOGY REPORT (SQ) ---
EXAM DESCRIPTION: MRI HEAD WITHOUT COMPLETED DATE/TIME: 06/13/2018 10:24 am REASON FOR STUDY: cva left-sided weakness COMPARISON: None. TECHNIQUE: Multiplanar imaging includes non-contrasted T1, T2, FLAIR, and diffusion with ADC map seq uences. Images stored on PACS. LIMITATIONS: None. FINDINGS: ANATOMY: No developmental anomalies. Normal vascular flow voids. Pituitary fossa normal. CSF SPACES: Normal in size and contour. No hemorrhage. CEREBRUM: Diffusion-weighted images are positive for a tiny focus of acute ischemic change in the right posteri or frontal deep periventricular white matter, immediately adjacent to the acute infarct seen on 2017. Old right posterior cerebral artery distribution infarct along the posterior temporal lobe and upper lobe. Moderate to marked hemispheric small vessel ischemic change in the deep periventricular white matter, similar compared to the MRI from 11/10/2017. Old lacunar infarcts in the right and left thalamus, un changed from 11/10/2017. No acute intracranial hemorrhage, mass effect, or midline shift. POSTERIOR FOSSA: No signal alteration. No hemorrhage. No edema, masses or mass effect. Internal adin tory canals, cerebello-pontine angles, mastoids normal. DIFFUSION IMAGING: Diffusion-weighted images are positive for a tiny focus of acute ischemic change i n the right posterior frontal deep periventricular white matter, immediately adjacent to the acute in farct seen on 11/10/2017. ORBITS: No masses. Globes normal. PARANASAL SINUSES: No fluid levels. Mucosa normal. OTHER: No other significant finding. IMPRESSION: Tiny acute infarct in the right posterior frontal deep periventricular white matter, med ially adjacent to the acute infarct seen on 11/10/2017 MRI brain. Old right posterior cerebral artery distribution infarct, lacunar infarcts in the thalami, and modera [id number] hemispheric small vessel ischemic change, stable. EVIDENCE OF ACUTE STROKE: YES. TECHNICAL DOCUMENTATION: JOB ID: [id number] [employer]- All Rights Reserved Reading location - IP/workstation name: [email or web address]
[2018-06-13] MEDS: ASPIRIN 81 MG TABLET, ENT COATED PO SCH (11:04)
[2018-06-13] MEDS: CLOPIDOGREL BISULFATE 75 MG TABLET PO SCH (11:04)
[2018-06-13] MEDS: LEVETIRACETAM 500 MG TABLET PO SCH ×2 (13:19→21:20)
[2018-06-13] MEDS: HEPARIN SOD (PORCINE) 5,000 UNIT/ML 1 ML SYRINGE SUBCUT SCH ×2 (13:19→21:20)
[2018-06-13] MEDS ORDERED: ATORVASTATIN CALCIUM 80 MG TABLET PO SCH (22:00)
[2018-06-14] MEDS: HEPARIN SOD (PORCINE) 5,000 UNIT/ML 1 ML SYRINGE SUBCUT SCH ×2 (06:03→14:56)
[2018-06-14 06:20] LABS: ABSOLUTE BASOPHILS # (AUTO) 0.1 10^3/uL (0.0-0.2); ABSOLUTE EOSINOPHILS # (AUTO) 0.1 10^3/uL (0.0-0.6); ABSOLUTE LYMPHOCYTES (AUTO) 1.1 10^3/uL (0.5-4.7); ABSOLUTE MONOCYTES (AUTO) 0.4 10^3/uL (0.1-1.4); ABSOLUTE NEUT (AUTO) 1.5 10^3/uL (1.7-8.2); BASOPHILS % (AUTO) 2.3 % (0-2); EOSINOPHILS % (AUTO) 3.2 % (0-6); HEMATOCRIT 40.5 % (36.0-47.0); HEMOGLOBIN 13.8 g/dL (12.0-15.5); LYMPHOCYTES % (AUTO) 33.9 % (13-45); MEAN CORPUSCULAR HGB CONC 33.9 g/dL (32.0-36.0); MEAN CORPUSCULAR VOLUME 85 fl (80-97); MONOCYTES % (AUTO) 11.8 % (3-13); PLATELET COUNT 181 10^3/uL (150-450); RED BLOOD COUNT 4.75 10^6/uL (3.72-5.28); RED CELL DISTRIBUTION WIDTH 13.8 % (11.5-14.0); SEGMENTED NEUTROPHILS % (AUTO) 48.8 % (42-78); TOTAL CELLS COUNTED % (AUTO) 100 %; WHITE BLOOD COUNT 3.1 10^3/uL (4.0-10.5)
[2018-06-14 06:36] LABS: ANION GAP 12 (5-19); BLOOD UREA NITROGEN 17 mg/dL (7-20); CALCIUM 10.3 mg/dL (8.4-10.2); CARBON DIOXIDE 27 mmol/L (22-30); CHLORIDE 105 mmol/L (98-107); GLUCOSE 96 mg/dL (75-110); POTASSIUM 3.6 mmol/L (3.6-5.0); SODIUM 144.4 mmol/L (137-145)
[2018-06-14] MEDS: LEVETIRACETAM 500 MG TABLET PO SCH (09:47)
[2018-06-14] MEDS: CLOPIDOGREL BISULFATE 75 MG TABLET PO SCH (09:48)
[2018-06-14] MEDS: ASPIRIN 81 MG TABLET, ENT COATED PO SCH (09:48)
[2018-06-14] MEDS ORDERED: CARVEDILOL 12.5 MG TABLET PO SCH (10:00)
--- NOTE | 2018-06-14 12:36 | RADIOLOGY REPORT (SQ) ---
EXAM DESCRIPTION: CAROTID DOPPLER COMPLETED DATE/TIME: 06/14/2018 11:32 am REASON FOR STUDY: cva COMPARISON: MRI brain 06/13/2018 CT brain 06/13/2018 Carotid Doppler 11/12/2017 TECHNIQUE: Grayscale ultrasound, Doppler velocity and spectra, and color Doppler images acquired of the extra-cranial carotid and vertebral arteries. Images stored on PACS. LIMITATIONS: None. FINDINGS: RIGHT CAROTID CCA Velocities: Within normal limits. Right common carotid artery peak systolic velocity 0.69 m/sec ICA Velocities Peak systolic 0.41 m/s. End diastolic 0.22 m/s. Proximal ICA/CCA peak systolic ratio 0.7. Spectra normal. No significant plaque. LEFT CAROTID CCA Velocities: Within normal limits. Left common carotid peak systolic velocity 0.6 m/sec ICA Velocities Peak systolic 0.44 m/s. End diastolic 0.25 m/s. Proximal ICA/CCA peak systolic ratio 1.0. Spectra normal. No significant plaque. VERTEBRAL ARTERIES: Antegrade flow. Normal waveforms. SUBCLAVIAN ARTERIES: No finding. OTHER: No other significant finding. IMPRESSION: NO HEMODYNAMICALLY SIGNIFICANT STENOSIS. COMMENT: Quality ID #195: Velocity criteria are extrapolated from the diameter data as defined by t he Society of Radiologists in Ultrasound Consensus Conference. Radiology 2003: 229; 340-346. TECHNICAL DOCUMENTATION: JOB ID: [id number] [employer]- All Rights Reserved Reading location - IP/workstation name: [email or web address]
[2018-06-14 15:08] VITALS: BP 145/87
--- NOTE | 2018-06-14 16:37 | PDOC DISCHARGE SUMMARY ---
General - Admit/Disc Date/PCP Admission Date/Primary Care Provider: 06/13/18 06:23 Jayde MITCHELL MD Discharge Date: 06/14/18 - Discharge Diagnosis (1) Acute CVA (cerebrovascular accident) Is this a current diagnosis for this admission?: Yes (2) Diabetes mellitus type 2 in obese Is this a current diagnosis for this admission?: Yes - Additional Information Resuscitation Status: Full Code Discharge Diet: As Tolerated Discharge Activity: Activity As Tolerated, Balance Activity w/Rest, Energy Conservation Prescriptions: Carvedilol [Coreg 12.5 mg Tablet] 12.5 mg PO Q12 #60 tablet Clopidogrel Bisulfate [Plavix 75 mg Tablet] 75 mg PO DAILY #30 tablet Home Medications: Clonidine HCl [Catapres 0.2 mg Tablet] 0.2 mg PO TID 11/10/17 Hydralazine HCl 100 mg PO TID 11/10/17 Isosorbide Mononitrate [Imdur 30 mg Tablet.er] 30 mg PO QAM 11/10/17 Levetiracetam [Keppra 500 mg Tablet] 500 mg PO Q12 11/10/17 Potassium Chloride [Klor-Con 10] 10 meq PO DAILY 11/10/17 Atorvastatin Calcium [Lipitor 80 mg Tablet] 80 mg PO QHS 30 Days tablet Aspirin [Ecotrin 81 mg EC Tablet] 81 mg PO DAILY 06/13/18 Hydrochlorothiazide [Hydrodiuril 12.5 mg Tablet] 12.5 mg PO QAM 06/13/18 Metformin HCl [Glucophage 500 mg Tablet] 500 mg PO Q12 06/13/18 Carvedilol [Coreg 12.5 mg Tablet] 12.5 mg PO Q12 #60 tablet 06/14/18 Clopidogrel Bisulfate [Plavix 75 mg Tablet] 75 mg PO DAILY #30 tablet 06/14/18 History of Present Illness History of Present Illness: Admitting hospitalist's H&P: LEYDI THOMAS is a 63 year old female with a past medical history of schizophrenia and MRI verified CVA 8 years ago with full recovery left-sided weakness after physical therapy. She presents with left-sided weakness that began at 5 PM she went to bed but when awakened to use the bathroom was unable to walk prompting emergency room evaluation where she is found to have only 4 out of 5 strength in the left and right upper extremity. She denies palpitations, fevers, headache or recent change of medications. CT imaging in the ER is unremarkable. Hospital Course Hospital Course: Patient was admitted for possible new CVA after initially presenting with a new left sided arm and left leg weakness. Yesterday, she did have 3/5 strength on the left arm and leg. MRI showed a tiny acute ischemic infarct in the right posterior frontal deep periventricular white matter immediately adjacent to her previous infarct diagnosed in October 2017. Patient is already on aspirin and clopidogrel was added on admission. She was also continued on statin. Carotid dopplers were unremarkable. Discussed the benefits and risks of being on both the Plavix and aspirin and she says she wants to be on both. She did have significant improvement of her strength on day of discharge with increase in strength to 4+ on both the left arm and left leg. She was evaluated by PT who still recommended inpatient rehab as she had mild gait instability but patient refused. This was discussed in length with patient and son on bedside who takes care of patient. Patient vehemently refused to go for inpatient rehab. She was offered home PT and again insist that she is already doing home exercises from her previous PT regimen and that she does not want any more people coming in to "tell her what exercises she can do". Physical Exam Vital Signs: Temp Pulse Resp BP Pulse Ox 97.8 F 60 16 145/87 H 100 06/14/18 15:04 06/14/18 15:04 06/14/18 15:04 06/14/18 15:04 06/14/18 15:04 Intake & Output 06/13/18 06/14/18 06/15/18 06:59 06:59 06:59 Intake Total 1203 267 Output Total 100 Balance 1103 267 Weight 144 lb 2.917 oz General appearance: PRESENT: no acute distress, well-developed, well-nourished Head exam: PRESENT: atraumatic, normocephalic Eye exam: PRESENT: conjunctiva pink, EOMI, PERRLA. ABSENT: scleral icterus Ear exam: PRESENT: normal external ear exam Mouth exam: PRESENT: moist, tongue midline Neck exam: ABSENT: carotid bruit, JVD, lymphadenopathy, thyromegaly Respiratory exam: PRESENT: clear to auscultation dennis. ABSENT: rales, rhonchi, wheezes Cardiovascular exam: PRESENT: RRR. ABSENT: diastolic murmur, rubs, systolic murmur Pulses: PRESENT: normal dorsalis pedis pul GI/Abdominal exam: PRESENT: normal bowel sounds, soft. ABSENT: distended, guarding, mass, organolmegaly, rebound, tenderness Rectal exam: PRESENT: deferred Neurological exam: PRESENT: alert, awake, oriented to person, oriented to place , oriented to time, oriented to situation, CN II-XII grossly intact, motor sensory deficit - left arm and left leg with 4+ motor strength, intact sensation Results Laboratory Results: 06/14/18 05:33 06/14/18 05:33 06/14/18 06/14/18 05:33 05:33 WBC 3.1 L RBC 4.75 Hgb 13.8 Hct 40.5 MCV 85 MCH 29.0 MCHC 33.9 RDW 13.8 Plt Count 181 Seg Neutrophils % 48.8 Lymphocytes % 33.9 Monocytes % 11.8 Eosinophils % 3.2 Basophils % 2.3 H Absolute Neutrophils 1.5 L Absolute Lymphocytes 1.1 Absolute Monocytes 0.4 Absolute Eosinophils 0.1 Absolute Basophils 0.1 Sodium 144.4 Potassium 3.6 Chloride 105 Carbon Dioxide 27 Anion Gap 12 BUN 17 Creatinine 1.15 Est GFR ( Amer) 58 L Est GFR (Non-Af Amer) 48 L Glucose 96 Calcium 10.3 H Impressions: Head CT 06/13/18 04:05 IMPRESSION: No acute intracranial abnormality. No significant change compared to the prior exam TECHNICAL DOCUMENTATION: Quality ID # 436: Final reports with documentation of one or more dose reduction techniques (e.g., Automated exposure control, adjustment of the mA and/or kV according to patient size, use of iterative reconstruction technique) 2010 [employer]- All Rights Reserved Head MRI 06/13/18 06:19 IMPRESSION: Tiny acute infarct in the right posterior frontal deep periventricular white matter, medially adjacent to the acute infarct seen on MRI brain. Old right posterior cerebral artery distribution infarct, lacunar infarcts in the thalami, and roqoncsp-ml-pourcc hemispheric small vessel ischemic change, stable. EVIDENCE OF ACUTE STROKE: YES. Carotid Doppler Study 06/14/18 00:00 IMPRESSION: NO HEMODYNAMICALLY SIGNIFICANT STENOSIS. Qualifiers - * PATIENT BEING DISCHARGED WITH ANY OF THE FOLLOWING DIAGNOSIS: Stroke Stroke Pt being discharged on Anti-thrombolytic therapy?: No Reason(s) for not prescribing Anti-thrombolytic therapy:: Not indicated - was not a TPA candidate Stroke Pt being discharged on Anti-coagulation therapy?: Yes Stroke Pt being discharged on Statins?: Yes
== END 2018-06-14 15:44 | disposition home or self-care (01) | DRG 65 ==
LOC: ER 03:48 → EH 06:23 → 3S 07:40
PROVIDERS: ADMIT Internal Medicine; ATTEND Internal Medicine
DX: I63.9 Cerebral infarction, unspecified (principal); G81.94 Hemiplegia, unspecified affecting left nondominant side; E11.9 Type 2 diabetes mellitus without complications; E66.9 Obesity, unspecified; E78.00 Pure hypercholesterolemia, unspecified; F25.9 Schizoaffective disorder, unspecified; I10 Essential (primary) hypertension; Z23 Encounter for immunization; Z79.82 Long term (current) use of aspirin; Z79.899 Other long term (current) drug therapy; Z88.8 Allergy status to other drugs, medicaments and biological substances
CPT/HCPCS: 36415; 70450; 70551; 80048; 80053; 81001; 82962; 83735; 85025; 85610; 85730; 90686; 93005; 93010; 93880; 99285; G8978-GP; G8979-GP; J1644; J3490

== ENCOUNTER → 2018-10-05 | Outpatient (CLI) | payer MEDICAID ==
[2018-10-05 08:19] LABS: HEMATOCRIT 37.2 % (36.0-47.0); HEMOGLOBIN 12.7 g/dL (12.0-15.5); MEAN CORPUSCULAR HEMOGLOBIN 29.1 pg (27.0-33.4); MEAN CORPUSCULAR HGB CONC 34.2 g/dL (32.0-36.0); MEAN CORPUSCULAR VOLUME 85 fl (80-97); PLATELET COUNT 200 10^3/uL (150-450); RED BLOOD COUNT 4.37 10^6/uL (3.72-5.28); RED CELL DISTRIBUTION WIDTH 14.8 % (11.5-14.0); WHITE BLOOD COUNT 4.3 10^3/uL (4.0-10.5)
[2018-10-05 08:39] LABS: ANION GAP 14 (5-19); BLOOD UREA NITROGEN 22 mg/dL (7-20); CALCIUM 10.7 mg/dL (8.4-10.2); CARBON DIOXIDE 25 mmol/L (22-30); CHLORIDE 106 mmol/L (98-107); GLUCOSE 93 mg/dL (75-110); POTASSIUM 4.5 mmol/L (3.6-5.0); SODIUM 144.6 mmol/L (137-145)
== END ==
LOC: OD 07:43
PROVIDERS: ATTEND Internal Medicine Nephrology
DX: I12.9 Hypertensive chronic kidney disease with stage 1 through stage 4 chronic kidney disease, or unspecified chronic kidney disease (principal); N18.3 Chronic kidney disease, stage 3 (moderate)
CPT/HCPCS: 36415; 80048; 83735; 85027

== ENCOUNTER → 2019-01-25 | Outpatient (CLI) | payer MEDICAID ==
[2019-01-25 09:21] LABS: HEMATOCRIT 37.3 % (36.0-47.0); HEMOGLOBIN 12.8 g/dL (12.0-15.5); MEAN CORPUSCULAR HEMOGLOBIN 28.3 pg (27.0-33.4); MEAN CORPUSCULAR HGB CONC 34.3 g/dL (32.0-36.0); MEAN CORPUSCULAR VOLUME 83 fl (80-97); PLATELET COUNT 239 10^3/uL (150-450); RED BLOOD COUNT 4.52 10^6/uL (3.72-5.28); RED CELL DISTRIBUTION WIDTH 14.7 % (11.5-14.0); WHITE BLOOD COUNT 5.3 10^3/uL (4.0-10.5)
[2019-01-25 09:29] LABS: APPEARANCE,URINE SLIGHTLY HAZY; COLOR,URINE YELLOW; GLUCOSE, URINE NEGATIVE (NEGATIVE)
[2019-01-25 09:30] LABS: BILIRUBIN,URINE NEGATIVE (NEGATIVE); KETONES,URINE 25 mg/dL (NEGATIVE); LEUKOCYTE ESTERASE,URINE LARGE (NEGATIVE); NITRITE,URINE NEGATIVE (NEGATIVE); PROTEIN,URINE NEGATIVE (NEGATIVE); URINE SPECIFIC GRAVITY 1.013; UROBILINOGEN,URINE NEGATIVE mg/dL (<2.0)
[2019-01-25 09:58] LABS: ANION GAP 14 (5-19); BLOOD UREA NITROGEN 24 mg/dL (7-20); CALCIUM 10.2 mg/dL (8.4-10.2); CARBON DIOXIDE 25 mmol/L (22-30); CHLORIDE 105 mmol/L (98-107); GLUCOSE 71 mg/dL (75-110); POTASSIUM 4.8 mmol/L (3.6-5.0); SODIUM 143.7 mmol/L (137-145)
== END ==
LOC: OD 07:49
PROVIDERS: ATTEND Internal Medicine Nephrology
DX: I12.9 Hypertensive chronic kidney disease with stage 1 through stage 4 chronic kidney disease, or unspecified chronic kidney disease (principal); N18.3 Chronic kidney disease, stage 3 (moderate); E83.52 Hypercalcemia
CPT/HCPCS: 36415; 80048; 81001; 85027

== ENCOUNTER 2019-03-04 03:21 | Emergency (ER) | payer MEDICAID ==
[2019-03-04] MEDS ORDERED: HYDRALAZINE HCL 50 MG TABLET PO ONE (05:23)
[2019-03-04] MEDS ORDERED: HYDROCHLOROTHIAZIDE 12.5 MG TABLET PO ONE (05:23)
[2019-03-04] MEDS ORDERED: LEVETIRACETAM 500 MG TABLET PO ONE (05:23)
[2019-03-04] MEDS ORDERED: CLONIDINE HCL 0.2 MG TABLET PO ONE (05:24)
[2019-03-04] MEDS ORDERED: ISOSORBIDE MONONITRATE 60 MG TAB.ER.24H PO ONE (05:24)
[2019-03-04 05:51] LABS: ABSOLUTE BASOPHILS # (AUTO) 0.1 10^3/uL (0.0-0.2); ABSOLUTE EOSINOPHILS # (AUTO) 0.2 10^3/uL (0.0-0.6); ABSOLUTE LYMPHOCYTES (AUTO) 1.1 10^3/uL (0.5-4.7); ABSOLUTE MONOCYTES (AUTO) 0.5 10^3/uL (0.1-1.4); ABSOLUTE NEUT (AUTO) 2.4 10^3/uL (1.7-8.2); BASOPHILS % (AUTO) 2.2 % (0-2); HEMATOCRIT 36.8 % (36.0-47.0); HEMOGLOBIN 12.4 g/dL (12.0-15.5); LYMPHOCYTES % (AUTO) 25.2 % (13-45); MEAN CORPUSCULAR HEMOGLOBIN 28.3 pg (27.0-33.4); MEAN CORPUSCULAR HGB CONC 33.8 g/dL (32.0-36.0); MEAN CORPUSCULAR VOLUME 84 fl (80-97); MONOCYTES % (AUTO) 11.1 % (3-13); PLATELET COUNT 222 10^3/uL (150-450); RED CELL DISTRIBUTION WIDTH 15.8 % (11.5-14.0); SEGMENTED NEUTROPHILS % (AUTO) 57.5 % (42-78); TOTAL CELLS COUNTED % (AUTO) 100 %; WHITE BLOOD COUNT 4.2 10^3/uL (4.0-10.5)
[2019-03-04 06:09] LABS: BLOOD UREA NITROGEN 17 mg/dL (7-20); CALCIUM 9.7 mg/dL (8.4-10.2); CARBON DIOXIDE 29 mmol/L (22-30); CHLORIDE 107 mmol/L (98-107); GLUCOSE 105 mg/dL (75-110); POTASSIUM 4.2 mmol/L (3.6-5.0)
[2019-03-04 06:10] LABS: ALKALINE PHOSPHATASE 94 U/L (38-126); ANION GAP 6 (5-19); ASPARTATE AMINO TRANSFERASE 42 U/L (14-36); BILIRUBIN,DIRECT 0.3 mg/dL (0.0-0.4); BILIRUBIN,TOTAL 0.6 mg/dL (0.2-1.3); TOTAL PROTEIN 7.4 g/dL (6.3-8.2)
--- NOTE | 2019-03-04 06:17 | ER Document Report ---
ED General - General Chief Complaint: High Blood Pressure Stated Complaint: WEAK LEFT LEG Time Seen by Provider: 03/04/19 04:46 Primary Care Provider: GUSTAVO STOLL MD [Primary Care Provider] - Follow up in 1 week Mode of Arrival: Ambulatory Information source: Patient TRAVEL OUTSIDE OF THE [place] IN LAST 30 DAYS: No - HPI Notes: Patient is a 64-year-old female history of schizophrenia, seizures, type 2 diabetes, chronic renal insufficiency, CVA of the right MCA 8 years ago with some residual left-sided weakness, hypertension presents the emergency department with report that she ran out of her medications 2 weeks ago, and every time she runs out of her medications she is concerned that her left-sided weakness seems worse. The patient also reports some left knee pain, but she is unaware of any specific injury. Left knee pains been going on also for several weeks. The patient denies any fever cough, chest pain, difficulty breathing, headache, numbness. No constipation, diarrhea, dysuria. - Related Data Allergies/Adverse Reactions: lisinopril [Lisinopril] Allergy (Unknown, Verified 06/13/18 10:16) Past Medical History - General Information source: Patient - Social History Smoking Status: Unknown if Ever Smoked Frequency of alcohol use: None Drug Abuse: None Lives with: Family Family History: Reviewed & Not Pertinent, Other - Patient is not answering q uestions appropriately Patient has suicidal ideation: No Patient has homicidal ideation: No - Past Medical History Cardiac Medical History: Reports: Hx Hypercholesterolemia, Hx Hypertension Denies: Hx Heart Murmur Pulmonary Medical History: Reports: Hx Respiratory Failure Denies: Hx Tuberculosis Neurological Medical History: Reports: Hx Cerebrovascular Accident, Hx Seizures Renal/ Medical History: Denies: Hx Peritoneal Dialysis Psychiatric Medical History: Reports: Hx Schizoaffective Disorder, Hx Schiz ophrenia Denies: Hx Depression Past Surgical History: Reports: Hx Tubal Ligation - Immunizations Hx Diphtheria, Pertussis, Tetanus Vaccination: Yes Review of Systems - Review of Systems -: Yes All other systems reviewed and negative Physical Exam - Vital signs Vitals: Temp Pulse Resp BP Pulse Ox 97.3 F 65 20 197/106 H 99 03/04/19 03:21 03/04/19 03:21 03/04/19 03:21 03/04/19 03:21 03/04/19 03:21 - Notes Notes: PHYSICAL EXAMINATION: GENERAL: Well-appearing, well-nourished and in no acute distress. HEAD: Atraumatic, normocephalic. EYES: Pupils equal round and reactive to light, extraocular movements intact, conjunctiva are normal. ENT: Nares patent, oropharynx clear without exudates. Moist mucous membranes. NECK: Normal range of motion, supple without lymphadenopathy. No carotid bruits. LUNGS: Breath sounds clear to auscultation bilaterally and equal. No wheezes rales or rhonchi. HEART: Regular rate and rhythm without murmurs ABDOMEN: Soft, nontender, nondistended abdomen. No guarding, no rebound. No masses appreciated. Female : deferred Musculoskeletal: Normal range of motion, no pitting or edema. No cyanosis. Patient has reproducible pain through the left knee. There is no effusion. The discomfort is more diffuse through the patellar region. There is pain worsening with movement of the knee. Distally, the patient has good sensation and capillary refill and pulses. There is no erythema. NEUROLOGICAL: Cranial nerves grossly intact. Normal speech. Normal sensory exams. No motor deficits in both upper extremities. There may be a mild weakness in the left lower extremity, but the patient and her son state this is chronic related to her old stroke. No evidence for an acute change. PSYCH: Slightly pressured speech. SKIN: Warm, Dry, normal turgor, no rashes or lesions noted. Course - Re-evaluation Re-evalutation: 03/04/19 06:37 No clinical suggestion for significant acute stroke. I question osteoarthritis in the left knee. No evidence for effusion. X-ray of the knee will be ordered and a CT scan of the head to completely rule out acute intracranial process, especially given the patient's uncontrolled hypertension. The patient and her son were counseled about the need to take the medications regularly, the patient was given her usual morning dose of hydralazine, Keppra, hydrochlorothiazide, isosorbide and clonidine for blood pressure control. Lab studies are ordered on patient which are pending. If lab work and scans are normal, I will write for the patient's medications atorvastatin, hydralazine, Keppra, hydrochlorothiazide, isosorbide and clonidine that she is out of. Care turned over to Dr. Pizano at 0600. - Vital Signs Vital signs: Temp Pulse Resp BP Pulse Ox 97.3 F 65 20 197/106 H 99 03/04/19 03:21 03/04/19 03:21 03/04/19 03:21 03/04/19 03:21 03/04/19 03:21 - Laboratory Result Diagrams: 03/04/19 05:40 03/04/19 05:40 Laboratory results interpreted by me: 03/04/19 03/04/19 05:40 05:40 RDW 15.8 H Basophils % 2.2 H Est GFR ( Amer) 55 L Est GFR (Non-Af Amer) 46 L AST 42 H - EKG Interpretation by Me EKG shows normal: Sinus rhythm Additional EKG results interpreted by me: 03/04/19 06:36 EKG is interpreted by me showed normal sinus rhythm heart rate of 60. There is no gross evidence for acute OK or ischemia noted. There is no significant c hanges compared to previous EKG reviewed from 06/13/2018. Discharge - Discharge Clinical Impression: Medically noncompliant Hypertension Qualifiers: Hypertension type: essential hypertension Qualified Code(s): I10 - Essential (primary) hypertension Disposition: OTHER Prescriptions: Atorvastatin Calcium [Lipitor 80 mg Tablet] 80 mg PO QHS #30 tablet Clonidine HCl [Catapres 0.2 mg Tablet] 0.2 mg PO Q8 #90 tablet Hydralazine HCl 100 mg PO TID 30 Days tablet Hydrochlorothiazide 12.5 mg PO DAILY #30 tablet Isosorbide Mononitrate [Imdur 30 mg Tablet.er] 30 mg PO ACBRKFST #30 tab.er.24h Levetiracetam [Keppra 500 mg Tablet] 500 mg PO Q12 #60 tablet Referrals: GUSTAVO STOLL MD [Primary Care Provider] - Follow up in 1 week
--- NOTE | 2019-03-04 07:02 | RADIOLOGY REPORT (SQ) ---
EXAM DESCRIPTION: CT HEAD WITHOUT IV CONTRAST COMPLETED DATE/TME: 03/04/2019 05:25 CLINICAL HISTORY: 64 years Female, L sided weakness, old R MCA infarct COMPARISON:Jun 13 2018 TECHNIQUE: No contrast. Coronal and sagittal reformat. This exam was performed according to our departmental dose-optimization program, which includes automated exposure control, adjustment of the mA and/or kV according to patient size and/or use of iterative reconstruction technique. 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 Small right frontal encephalomalacia-infarct. Mild ex vacuo of the right lateral ventricle. Mild parenchymal volume loss. No hemorrhage. No mass, mass effect, or midline shift. Atherosclerosis. Moderate confluent white matter microangiopathy. Brain and extra-axial structures appear otherwise intact. IMPRESSION: No acute findings.
--- NOTE | 2019-03-04 07:07 | RADIOLOGY REPORT (SQ) ---
EXAM DESCRIPTION: XR KNEE 1-2 VIEWS COMPLETED DATE/TME: 03/04/2019 05:24 CLINICAL HISTORY: 64 years Female, L knee pain COMPARISON: None. Findings: Minimal superior patellar enthesophyte. Bones, joints, and soft tissues of the LEFT XR KNEE 1-2 VIEWS appear otherwise unremarkable. IMPRESSION: No acute findings.
[2019-03-04 07:28] VITALS: BP 161/79
--- NOTE | 2019-03-04 10:59 | EKG REPORT ---
SEVERITY:- BORDERLINE ECG - SINUS RHYTHM PROBABLE LEFT ATRIAL ABNORMALITY : Confirmed by: Fredo Olea 04-Mar-2019 10:58:01
--- NOTE | 2019-03-04 10:59 | EKG REPORT ---
SEVERITY:- ABNORMAL ECG - ACCELERATED JUNCTIONAL ESCAPE RHYTHM : Confirmed by: Fredo Olea 04-Mar-2019 10:58:05
== END 2019-03-04 08:09 | disposition home or self-care (01) ==
LOC: ER 03:21
DX: I10 Essential (primary) hypertension (principal); Z91.19 Patient's noncompliance with other medical treatment and regimen; M62.81 Muscle weakness (generalized); Z86.73 Personal history of transient ischemic attack (TIA), and cerebral infarction without residual deficits
CPT/HCPCS: 93005 ×2; 36415; 85025; 80053; 73560; 70450; 93010 ×2; J3490 ×3; 99284

== ENCOUNTER → 2019-05-19 | Outpatient (CLI) | payer MEDICAID ==
[2019-05-19 08:08] LABS: APPEARANCE,URINE CLEAR; BILIRUBIN,URINE NEGATIVE (NEGATIVE); COLOR,URINE YELLOW; GLUCOSE, URINE NEGATIVE (NEGATIVE); KETONES,URINE NEGATIVE (NEGATIVE); LEUKOCYTE ESTERASE,URINE NEGATIVE (NEGATIVE); NITRITE,URINE NEGATIVE (NEGATIVE); PROTEIN,URINE NEGATIVE (NEGATIVE); URINE SPECIFIC GRAVITY 1.013; UROBILINOGEN,URINE NEGATIVE mg/dL (<2.0)
[2019-05-19 08:10] LABS: HEMATOCRIT 35.5 % (36.0-47.0); HEMOGLOBIN 11.8 g/dL (12.0-15.5); MEAN CORPUSCULAR HEMOGLOBIN 27.6 pg (27.0-33.4); MEAN CORPUSCULAR HGB CONC 33.3 g/dL (32.0-36.0); MEAN CORPUSCULAR VOLUME 83 fl (80-97); PLATELET COUNT 206 10^3/uL (150-450); RED BLOOD COUNT 4.28 10^6/uL (3.72-5.28); RED CELL DISTRIBUTION WIDTH 14.5 % (11.5-14.0); WHITE BLOOD COUNT 3.1 10^3/uL (4.0-10.5)
[2019-05-19 08:37] LABS: ANION GAP 10 (5-19); BLOOD UREA NITROGEN 19 mg/dL (7-20); CALCIUM 10.1 mg/dL (8.4-10.2); CARBON DIOXIDE 29 mmol/L (22-30); CHLORIDE 104 mmol/L (98-107); GLUCOSE 120 mg/dL (75-110); POTASSIUM 4.1 mmol/L (3.6-5.0)
== END ==
LOC: OD 07:08
PROVIDERS: ATTEND Internal Medicine Nephrology
DX: I12.9 Hypertensive chronic kidney disease with stage 1 through stage 4 chronic kidney disease, or unspecified chronic kidney disease (principal); N18.3 Chronic kidney disease, stage 3 (moderate); E11.22 Type 2 diabetes mellitus with diabetic chronic kidney disease; E83.52 Hypercalcemia
CPT/HCPCS: 36415; 80048; 81001; 85027

== ENCOUNTER 2020-03-16 08:58 | Emergency (ER) | payer MEDICAID ==
[2020-03-16 09:04] VITALS: BP 133/85
--- NOTE | 2020-03-16 11:28 | ER Document Report ---
ED General - General Chief Complaint: Medication Refill Stated Complaint: MEDICATION REFILL Time Seen by Provider: 03/16/20 10:11 TRAVEL OUTSIDE OF THE [place] IN LAST 30 DAYS: No - HPI Notes: Chief complaint: Medication refill issues History of present illness: 65-year-old female followed by [facility] directed to come to the ED by restoration officer who was under the impression that she would need to be seen by physician for her chronic medications for schizophrenia and hypertension were refilled. Nurse spoke with the office and this is incorrect. They are actually going to arrange to call her medications and at this time. Patient states no other acute issues. - Related Data Allergies/Adverse Reactions: lisinopril [Lisinopril] Allergy (Unknown, Verified 06/13/18 10:16) Home Medications: carvedilol, isorbide, atorvastatin, hctz, and levetiraetam Past Medical History - General Information source: Patient, COUNT INCLUDES THE [facility] Records - Social History Smoking Status: Never Smoker Chew tobacco use (# tins/day): No Frequency of alcohol use: None Drug Abuse: None Family History: Reviewed & Not Pertinent, Other - Patient is not answering questions appropriately - Past Medical History Cardiac Medical History: Reports: Hx Hypercholesterolemia, Hx Hypertension Denies: Hx Heart Murmur Pulmonary Medical History: Reports: Hx Respiratory Failure Denies: Hx Tuberculosis Neurological Medical History: Reports: Hx Cerebrovascular Accident, Hx Seizures. Denies: Hx Parkinson's Disease Renal/ Medical History: Denies: Hx Peritoneal Dialysis Psychiatric Medical History: Reports: Hx Schizoaffective Disorder, Hx Schizophrenia Denies: Hx Depression Past Surgical History: Reports: Hx Tubal Ligation - Immunizations Hx Diphtheria, Pertussis, Tetanus Vaccination: Yes Review of Systems - Review of Systems Notes: Constitutional: Negative for fever. HENT: Negative for sore throat. Eyes: Negative for visual changes. Cardiovascular: Negative for chest pain. Respiratory: Negative for shortness of breath. Gastrointestinal: Negative for abdominal pain, vomiting or diarrhea. Genitourinary: Negative for dysuria. Musculoskeletal: Negative for back pain. Skin: Negative for rash. Neurological: Negative for headaches, weakness or numbness. 10 point ROS negative except as marked above and in HPI. Physical Exam - Vital signs Vitals: Temp Pulse Resp BP Pulse Ox 97.7 F 76 18 133/85 H 98 03/16/20 09:02 03/16/20 09:02 03/16/20 09:02 03/16/20 09:02 03/16/20 09:02 - Notes Notes: GENERAL: Somewhat obese male approximately stated age appearing in no acute distress. SKIN: Good turgor no rashes. HEAD: Normocephalic atraumatic. EYES: PERRLA. EOMI. Conjunctivae and sclerae clear. NECK: Supple. No masses or thyromegaly. No adenopathy. Carotids 2+ without bruits. No JVD. BACK: Symmetrical without tenderness. CHEST: Respirations unlabored. Breath sounds clear and symmetrical. HEART: Regular rhythm. No murmur gallop or rub. ABDOMEN: Soft nontender without masses, organomegaly or rebound. Bowel sounds normally active. No bruits. EXTREMITIES: No edema. No calf tenderness. Cap refill less than 1.5 seconds. Dorsalis pedis and posterior tibial pulses 3+ and symmetrical. NEUROLOGICAL: Alert and oriented x3. Nonfocal. PSYCHIATRIC: Flat affect. Course - Vital Signs Vital signs: Temp Pulse Resp BP Pulse Ox 97.7 F 76 18 133/85 H 98 03/16/20 09:23 03/16/20 09:02 03/16/20 09:02 03/16/20 09:02 03/16/20 09:02 - Laboratory Laboratory results interpreted by me: 03/16/20 10:33 POC Glucose 124 H Discharge - Discharge Clinical Impression: Medication refill Schizophrenia Qualifiers: Schizophrenia type: unspecified Qualified Code(s): F20.9 - Schizophrenia, unspecified Condition: Stable Disposition: HOME, SELF-CARE Additional Instructions: Continue current medications and follow-up with your primary care provider as previously arranged. Return here as needed for new or worsening symptoms.
== END 2020-03-16 11:40 | disposition home or self-care (01) ==
LOC: ER 08:58
DX: Z76.0 Encounter for issue of repeat prescription (principal); F20.9 Schizophrenia, unspecified; I10 Essential (primary) hypertension; E66.9 Obesity, unspecified; Z79.899 Other long term (current) drug therapy; Z88.8 Allergy status to other drugs, medicaments and biological substances
CPT/HCPCS: 82962; 99281